=== PATIENT | female | born 1955 | race Caucasian/White ===

== ENCOUNTER → 2020-06-26 01:02 | Outpatient (CLI) | payer MEDICARE, SELFPAY ==
[2020-06-26 19:13] LABS: SARS-CoV-2 RNA PCR Negative
== END ==
PROVIDERS: PCP Family Medicine; Visit Provider Internal Medicine Gastroenterology
DX: Z01.812 Encounter for preprocedural laboratory examination (principal); Z20.822 Contact with and (suspected) exposure to COVID-19
CPT/HCPCS: C9803; U0003; U0005

== ENCOUNTER 2020-06-30 02:33 | Day surgery (SDC) | payer MEDICARE, SELFPAY ==
[2020-06-15 14:21] VITALS: BMI 37.9
[2020-06-30 06:21] VITALS: BP 158/88; PULSE 80; RESP 17; TEMP 36.3; O2SAT 100; BMI 36.2
[2020-06-30] MEDS: LACTATED RINGERS 1,000 ML 150 ML IV CONT (06:33)
--- NOTE | 2020-06-30 07:09 | WPDANESEPPF ---
Anes - Initial Pre Proc Eval Procedure: Operation Date: 06/30/20 07:30 Proposed Procedures p Colonoscopy - Sterling Haywood MD Date/Time: 06/30/20 07:09 Surgeon: Sterling Haywood MD Pre Op Diagnosis: Positive Cologuard Patient Data Age: 65 Gender: F Height: 5 ft 1 in Weight: 87 kg Last Vital Signs Temp 97.3 F L 06/30/20 06:21 Pulse 80 06/30/20 06:21 Resp 17 06/30/20 06:21 BP 158/88 H 06/30/20 06:21 Pulse Ox 100 06/30/20 06:21 Allergies Allergy/AdvReac Type Severity Reaction Status Date / Time hydrocodone Allergy Unknown Unknown Verified 06/30/20 06:20 Home Medications Medication Instructions Recorded Confirmed Type atorvastatin 10 mg tablet 10 mg PO DAILY #90 tablet 10/01/19 06/30/20 Rx lisinopril 20 mg tablet 20 mg PO DAILY #90 tablet 11/03/19 06/30/20 Rx levothyroxine 88 mcg tablet 88 mcg PO DAILY #90 tablet 02/04/20 06/30/20 Rx omeprazole 20 mg capsule,delayed 20 mg PO DAILY #90 cap 02/19/20 06/30/20 Rx release triamcinolone acetonide 0.1 % 1 applic TOPICAL QID #80 g 06/17/20 06/30/20 Rx topical cream metformin 500 mg tablet,extended 500 mg PO QPM #90 tablet 06/25/20 06/30/20 Rx release 24 hr naproxen 500 mg tablet 500 mg PO BID #180 tablet 06/25/20 06/30/20 Rx Patient hx anesthesia problems: none Family hx anesthesia problems: none PMFSH Past Medical History Medical History (Updated 06/30/20 @ 07:09 by Reinier Brady MD) Dementia Essential (primary) hypertension Hyperlipidemia Hypothyroidism (acquired) Family History Family History Father Hypertension Family history of malignant neoplasm of urinary bladder Mother Hypertension, Onset Age: 50 Family history of cardiovascular disease, Onset Age: 50 Sibling Hypertension Family history of elevated blood lipids Family history of cardiovascular disease Malignant neoplasm of prostate Social History Social History Smoking status: Never smoker Smoking end date: 04/09/71 Alcohol intake: never Substance use: never Substance use type: does not use Living arrangements: with family Spiritual care concerns: No Anes - Eval Final PreProcedure Day of Procedure 06/30/20 07:09 Patient weight: obese Heart: regular rate and rhythm Lungs: clear to auscultation Airway: Mallampati scale class III Neurological: alert and oriented Last oral intake: >/= 8 hours ASA classification: III Emergent: no Anesthetic plan: proceed Anesthesia type and monitoring: general and standard monitoring Informed Consent: The patient's anesthetic plan and its attendant risks and benefits were discussed with the patient/family/POA. Questions were solicited and answers provided to the satisfaction of the patient/family/POA.
[2020-06-30 07:19] LABS: Glucose Point of Care 115 (65-105)
--- NOTE | 2020-06-30 07:21 | PM.HPGS ---
History of Present Illness History of Present Illness Consent: Risks, benefits, and alternatives have been discussed and questions answered. Patient agrees to proceed with procedure. Chief complaint: Positive Cologuard Narrative: Letty Irene is a 65 year old female Referred for colon cancer screening. She has seen blood in her stools intermittently for the last couple of years Review of Systems Review of Systems: All systems reviewed & are unremarkable except as noted in HPI and below PMFSH Past Medical History Medical History Dementia Essential (primary) hypertension Hyperlipidemia Hypothyroidism (acquired) Family History Family History Father Hypertension Family history of malignant neoplasm of urinary bladder Mother Hypertension, Onset Age: 50 Family history of cardiovascular disease, Onset Age: 50 Sibling Hypertension Family history of elevated blood lipids Family history of cardiovascular disease Malignant neoplasm of prostate Social History Social History Smoking status: Never smoker Smoking end date: 04/09/71 Alcohol intake: never Substance use: never Substance use type: does not use Living arrangements: with family Spiritual care concerns: No Meds Home Medications and Allergies Home Medications Medication Instructions Recorded Confirmed Type atorvastatin 10 mg tablet 10 mg PO DAILY #90 tablet 10/01/19 06/30/20 Rx lisinopril 20 mg tablet 20 mg PO DAILY #90 tablet 11/03/19 06/30/20 Rx levothyroxine 88 mcg tablet 88 mcg PO DAILY #90 tablet 02/04/20 06/30/20 Rx omeprazole 20 mg capsule,delayed 20 mg PO DAILY #90 cap 02/19/20 06/30/20 Rx release triamcinolone acetonide 0.1 % 1 applic TOPICAL QID #80 g 06/17/20 06/30/20 Rx topical cream metformin 500 mg tablet,extended 500 mg PO QPM #90 tablet 06/25/20 06/30/20 Rx release 24 hr naproxen 500 mg tablet 500 mg PO BID #180 tablet 06/25/20 06/30/20 Rx Allergies Allergy/AdvReac Type Severity Reaction Status Date / Time hydrocodone Allergy Unknown Unknown Verified 06/30/20 06:20 Vital Signs Vital Signs - 24 hr 06/30/20 06:21 Temperature 36.3 C L Pulse Rate 80 Respiratory Rate 17 Blood Pressure 158/88 H Pulse Oximetry 100 Exam Resp: Auscultation: clear to auscultation bilaterally Cardio: Rate: regular rate Rhythm: regular rhythm GI: GI Palp: Yes Soft to palpation and No Tenderness to palpation present (GI) Assessment and Plan Assessment and plan (1) Colon cancer screening: Code(s): Z12.11 - Encounter for screening for malignant neoplasm of colon Status: Acute Assessment and Plan: Colonoscopy with possible biopsy or polypectomy or cautery or injection of substances.
[2020-06-30 07:53] VITALS: BP 125/50; PULSE 77; RESP 23; O2SAT 97
[2020-06-30 08:03] VITALS: BP 139/82; PULSE 76; RESP 23; O2SAT 97
[2020-06-30 08:13] VITALS: BP 161/68; PULSE 68; RESP 21; O2SAT 96
== END 2020-06-30 08:25 | disposition home or self-care (01) ==
PROVIDERS: PCP Family Medicine; Visit Provider Internal Medicine Gastroenterology
PROC: 0DJD8ZZ Inspection of Lower Intestinal Tract, Via Natural or Artificial Opening Endoscopic (ICD-10-PCS; CPT 45378; principal; 2020-06-30 07:30)
DX: Z12.11 Encounter for screening for malignant neoplasm of colon (principal); C18.7 Malignant neoplasm of sigmoid colon; K57.30 Diverticulosis of large intestine without perforation or abscess without bleeding; R19.5 Other fecal abnormalities; I10 Essential (primary) hypertension; E03.9 Hypothyroidism, unspecified; F03.90 Unspecified dementia, unspecified severity, without behavioral disturbance, psychotic disturbance, mood disturbance, and anxiety; Z79.84 Long term (current) use of oral hypoglycemic drugs; E66.9 Obesity, unspecified; Z68.36 Body mass index [BMI] 36.0-36.9, adult
CPT/HCPCS: 45385; 82948; 88305; C9803; J2704; J7120; U0003; U0005

== ENCOUNTER → 2020-07-06 00:17 | Outpatient (CLI) | payer MEDICARE, SELFPAY ==
[2020-07-06 18:31] LABS: SARS-CoV-2 RNA PCR Negative
== END ==
PROVIDERS: PCP Family Medicine; Visit Provider Internal Medicine Gastroenterology
DX: Z01.812 Encounter for preprocedural laboratory examination (principal); Z20.822 Contact with and (suspected) exposure to COVID-19
CPT/HCPCS: C9803; U0003; U0005

== ENCOUNTER 2020-07-08 02:10 | Day surgery (SDC) | payer MEDICARE, SELFPAY ==
[2020-07-05 14:11] VITALS: BMI 36.2
--- NOTE | 2020-07-08 10:07 | WPDANESEPPF ---
Anes - Initial Pre Proc Eval Procedure: Operation Date: 07/08/20 11:30 Proposed Procedures p Flexible Sigmoidoscopy - Sterling Haywood MD Date/Time: 07/08/20 10:07 Surgeon: Sterling Haywood MD Pre Op Diagnosis: Colon CA Patient Data Age: 65 Gender: F Height: 1.55 m Weight: 87 kg Allergies Allergy/AdvReac Type Severity Reaction Status Date / Time hydrocodone Allergy Unknown Unknown Verified 07/05/20 14:23 Home Medications Medication Instructions Recorded Confirmed Type atorvastatin 10 mg tablet 10 mg PO DAILY #90 tablet 10/01/19 07/05/20 Rx lisinopril 20 mg tablet 20 mg PO DAILY #90 tablet 11/03/19 07/05/20 Rx levothyroxine 88 mcg tablet 88 mcg PO DAILY #90 tablet 02/04/20 07/05/20 Rx metformin 500 mg tablet,extended 500 mg PO QPM #90 tablet 06/25/20 07/05/20 Rx release 24 hr naproxen 500 mg tablet 500 mg PO BID #180 tablet 06/25/20 07/05/20 Rx triamcinolone acetonide 0.1 % 1 applic TOPICAL QID #453.6 g 06/30/20 07/05/20 Rx topical cream omeprazole 20 mg PO HS 07/05/20 07/05/20 History Patient hx anesthesia problems: none Family hx anesthesia problems: none PMFSH Past Medical History Medical History (Updated 07/08/20 @ 10:09 by Dennys Cartwright MD) Dementia Diabetes Essential (primary) hypertension Hyperlipidemia Hypothyroidism (acquired) Obesity (BMI 30.0-34.9) Sigmoid polyp Family History Family History Father Hypertension Family history of malignant neoplasm of urinary bladder Mother Hypertension, Onset Age: 50 Family history of cardiovascular disease, Onset Age: 50 Sibling Hypertension Family history of elevated blood lipids Family history of cardiovascular disease Malignant neoplasm of prostate Social History Social History Smoking status: Never smoker Smoking end date: 04/09/71 Alcohol intake: never Substance use: never Substance use type: does not use Living arrangements: with family Spiritual care concerns: No Anes - Eval Final PreProcedure Day of Procedure 07/08/20 10:07 Patient weight: obese Heart: regular rate and rhythm Lungs: clear to auscultation and normal air movement Airway: Mallampati scale class II Neurological: alert and oriented Last oral intake: >/= 8 hours ASA classification: III Emergent: no Anesthetic plan: proceed Anesthesia type and monitoring: general GIVS Informed Consent: The patient's anesthetic plan and its attendant risks and benefits were discussed with the patient/family/POA. Questions were solicited and answers provided to the satisfaction of the patient/family/POA.
[2020-07-08 10:12] VITALS: BP 145/77; PULSE 90; RESP 20; TEMP 36.3; O2SAT 100; BMI 35.3
[2020-07-08] MEDS: LACTATED RINGERS 1,000 ML 150 ML IV CONT (10:30)
[2020-07-08 10:31] LABS: Glucose Point of Care 103 (65-105)
--- NOTE | 2020-07-08 10:51 | PM.HPGS ---
History of Present Illness History of Present Illness Consent: Risks, benefits, and alternatives have been discussed and questions answered. Patient agrees to proceed with procedure. Chief complaint: Colon CA Narrative: Letty Irene is a 65 year old female who recently was found to have focal carcinoma and a polyp. She returns now for sigmoidoscopy and tattoo of the lesion to facilitate surgical localization Review of Systems Review of Systems: All systems reviewed & are unremarkable except as noted in HPI and below PMFSH Past Medical History Medical History Dementia Diabetes Essential (primary) hypertension Hyperlipidemia Hypothyroidism (acquired) Obesity (BMI 30.0-34.9) Sigmoid polyp Family History Family History Father Hypertension Family history of malignant neoplasm of urinary bladder Mother Hypertension, Onset Age: 50 Family history of cardiovascular disease, Onset Age: 50 Sibling Hypertension Family history of elevated blood lipids Family history of cardiovascular disease Malignant neoplasm of prostate Social History Social History Smoking status: Never smoker Smoking end date: 04/09/71 Alcohol intake: never Substance use: never Substance use type: does not use Living arrangements: with family Spiritual care concerns: No Meds Home Medications and Allergies Home Medications Medication Instructions Recorded Confirmed Type atorvastatin 10 mg tablet 10 mg PO DAILY #90 tablet 10/01/19 07/05/20 Rx lisinopril 20 mg tablet 20 mg PO DAILY #90 tablet 11/03/19 07/05/20 Rx levothyroxine 88 mcg tablet 88 mcg PO DAILY #90 tablet 02/04/20 07/05/20 Rx metformin 500 mg tablet,extended 500 mg PO QPM #90 tablet 06/25/20 07/05/20 Rx release 24 hr naproxen 500 mg tablet 500 mg PO BID #180 tablet 06/25/20 07/05/20 Rx triamcinolone acetonide 0.1 % 1 applic TOPICAL QID #453.6 g 06/30/20 07/05/20 Rx topical cream omeprazole 20 mg PO HS 07/05/20 07/05/20 History Allergies Allergy/AdvReac Type Severity Reaction Status Date / Time hydrocodone Allergy Unknown Unknown Verified 07/08/20 10:11 Vital Signs Vital Signs - 24 hr 07/08/20 10:12 Temperature 36.3 C L Pulse Rate 90 Respiratory Rate 20 Blood Pressure 145/77 H Pulse Oximetry 100 Exam Const: General: alert Orientation/consciousness: patient oriented x3 Resp: Auscultation: clear to auscultation bilaterally Cardio: Rhythm: regular rhythm GI: GI Palp: Yes Soft to palpation and No Tenderness to palpation present (GI) Neuro: General: patient oriented x3 Assessment and Plan Assessment and plan (1) Carcinoma of colon: Code(s): C18.9 - Malignant neoplasm of colon, unspecified Status: Acute Assessment and Plan: Sigmoidoscopy with possible biopsy or polypectomy or cautery or injection of substances.
[2020-07-08 11:28] VITALS: BP 132/74; PULSE 79; RESP 25; O2SAT 96
[2020-07-08 11:38] VITALS: BP 111/63; PULSE 76; RESP 18; O2SAT 95
[2020-07-08 11:48] VITALS: BP 128/77; PULSE 71; RESP 19; O2SAT 97
== END 2020-07-08 11:57 | disposition home or self-care (01) ==
PROVIDERS: PCP Family Medicine; Visit Provider Internal Medicine Gastroenterology
PROC: 0DJD8ZZ Inspection of Lower Intestinal Tract, Via Natural or Artificial Opening Endoscopic (ICD-10-PCS; CPT 45330; principal; 2020-07-08 11:30)
DX: C18.9 Malignant neoplasm of colon, unspecified (principal); D12.5 Benign neoplasm of sigmoid colon; I10 Essential (primary) hypertension; E78.5 Hyperlipidemia, unspecified; E11.9 Type 2 diabetes mellitus without complications; E03.9 Hypothyroidism, unspecified; F03.90 Unspecified dementia, unspecified severity, without behavioral disturbance, psychotic disturbance, mood disturbance, and anxiety; E66.9 Obesity, unspecified; Z68.35 Body mass index [BMI] 35.0-35.9, adult; Z79.84 Long term (current) use of oral hypoglycemic drugs
CPT/HCPCS: 45335; 45338; 88305; C9803; J2704; J7120; U0003; U0005

== ENCOUNTER → 2020-08-09 01:22 | Outpatient (CLI) | payer MEDICARE, SELFPAY ==
[2020-08-09 19:16] LABS: SARS-CoV-2 RNA PCR Negative
== END ==
PROVIDERS: PCP Family Medicine; Visit Provider Internal Medicine Gastroenterology
DX: Z01.812 Encounter for preprocedural laboratory examination (principal); Z20.822 Contact with and (suspected) exposure to COVID-19
CPT/HCPCS: C9803; U0003; U0005

== ENCOUNTER 2020-08-12 01:47 | Day surgery (SDC) | payer MEDICARE, SELFPAY ==
[2020-08-04 15:43] VITALS: BMI 37.5
--- NOTE | 2020-08-11 11:35 | WPDANESEPPF ---
Anes - Initial Pre Proc Eval Procedure: Operation Date: 08/12/20 12:00 Proposed Procedures p Colonoscopy - Sterling Haywood MD Date/Time: 08/11/20 11:35 Surgeon: Sterling Haywood MD Pre Op Diagnosis: colon polyp Patient Data Age: 65 Gender: F Height: 1.55 m Weight: 90 kg Allergies Allergy/AdvReac Type Severity Reaction Status Date / Time hydrocodone Allergy Unknown Unknown Verified 08/12/20 10:59 Home Medications Medication Instructions Recorded Confirmed Type atorvastatin 10 mg tablet 10 mg PO DAILY #90 tablet 10/01/19 08/04/20 Rx lisinopril 20 mg tablet 20 mg PO DAILY #90 tablet 11/03/19 08/04/20 Rx levothyroxine 88 mcg tablet 88 mcg PO DAILY #90 tablet 02/04/20 08/04/20 Rx metformin 500 mg tablet,extended 500 mg PO QPM #90 tablet 06/25/20 08/04/20 Rx release 24 hr naproxen 500 mg tablet 500 mg PO BID #180 tablet 06/25/20 08/04/20 Rx triamcinolone acetonide 0.1 % 1 applic TOPICAL QID #453.6 g 06/30/20 08/04/20 Rx topical cream omeprazole 20 mg PO HS 07/05/20 08/04/20 History erythromycin 500 mg tablet 1,000 mg PO .COMPLEX #6 tablet 07/29/20 08/04/20 Rx neomycin 500 mg tablet See Rx Instructions .ROUTE 07/29/20 08/04/20 Rx .COMPLEX #6 tablet tramadol 50 mg tablet 50 mg PO Q6H PRN #40 tablet 07/30/20 08/04/20 Rx sodium,potassium,mag sulfates 17.5 See Rx Instructions PO .COMPLEX 08/04/20 08/04/20 Rx gram-3.13 gram-1.6 gram oral soln #354 ml Patient hx anesthesia problems: none Family hx anesthesia problems: none PMFSH Past Medical History Medical History (Updated 07/29/20 @ 09:49 by Marta Bedoya) Dementia Diabetes Essential (primary) hypertension GERD (gastroesophageal reflux disease) Hyperlipidemia Hypothyroidism (acquired) Sigmoid polyp Surgical History Surgical History (Updated 08/11/20 @ 11:36 by Corona Fragoso DO) H/O rotator cuff surgery H/O tubal ligation History of appendectomy History of cholecystectomy Previous back surgery Family History Family History Father Hypertension Family history of malignant neoplasm of urinary bladder Mother Hypertension, Onset Age: 50 Heart attack Sibling Hypertension Family history of elevated blood lipids Family history of cardiovascular disease Malignant neoplasm of prostate Grandparent Heart disease Cancer Hypertension Social History Social History Smoking status: Never smoker Smoking end date: 04/09/71 Alcohol intake: never Substance use: never Substance use type: does not use Living arrangements: with family Gender identity (if verbalized by the patient): Female Spiritual care concerns: No Anes - Eval Final PreProcedure Day of Procedure 08/11/20 11:35 Patient weight: obese Heart: regular rate and rhythm Lungs: clear to auscultation and normal air movement Airway: Mallampati scale class II Neurological: alert and oriented Last oral intake: >/= 8 hours ASA classification: III Emergent: no Anesthetic plan: proceed Anesthesia type and monitoring: general GIVS and standard monitoring Informed Consent: The patient's anesthetic plan and its attendant risks and benefits were discussed with the patient/family/POA. Questions were solicited and answers provided to the satisfaction of the patient/family/POA.
[2020-08-12 11:01] VITALS: BP 147/77; PULSE 80; RESP 20; TEMP 36.4; O2SAT 100
[2020-08-12] MEDS: LACTATED RINGERS 1,000 ML 150 ML IV CONT (11:12)
[2020-08-12 11:13] LABS: Glucose Point of Care 95 (65-105)
--- NOTE | 2020-08-12 11:46 | PM.HPGS ---
History of Present Illness History of Present Illness Consent: Risks, benefits, and alternatives have been discussed and questions answered. Patient agrees to proceed with procedure. Chief complaint: colon polyp Narrative: Letty Irene is a 65 year old female Who recently was found to have a malignant polyp. When she had tattooing of the spot for subsequent surgery, an additional polyp was seen which was biopsied and found to be benign. it was a broad-based polyp and it was felt that it would be somewhat difficult to remove endoscopically. It was hoped that this 2nd more distal polyp would be removed with the surgical resection. However when discussed with the surgeon. It seems that the hand assisted laparoscopic procedure would not facilitate removing a polyp that close to the rectum. Therefore we will attempt removed that 1 endoscopically today . Review of Systems Review of Systems: All systems reviewed & are unremarkable except as noted in HPI and below PMFSH Past Medical History Medical History Dementia Diabetes Essential (primary) hypertension GERD (gastroesophageal reflux disease) Hyperlipidemia Hypothyroidism (acquired) Sigmoid polyp Surgical History Surgical History H/O rotator cuff surgery H/O tubal ligation History of appendectomy History of cholecystectomy Previous back surgery Family History Family History Father Hypertension Family history of malignant neoplasm of urinary bladder Mother Hypertension, Onset Age: 50 Heart attack Sibling Hypertension Family history of elevated blood lipids Family history of cardiovascular disease Malignant neoplasm of prostate Grandparent Heart disease Cancer Hypertension Social History Social History Smoking status: Never smoker Smoking end date: 04/09/71 Alcohol intake: never Substance use: never Substance use type: does not use Living arrangements: with family Gender identity (if verbalized by the patient): Female Spiritual care concerns: No Meds Home Medications and Allergies Home Medications Medication Instructions Recorded Confirmed Type atorvastatin 10 mg tablet 10 mg PO DAILY #90 tablet 10/01/19 08/04/20 Rx lisinopril 20 mg tablet 20 mg PO DAILY #90 tablet 11/03/19 08/04/20 Rx levothyroxine 88 mcg tablet 88 mcg PO DAILY #90 tablet 02/04/20 08/04/20 Rx metformin 500 mg tablet,extended 500 mg PO QPM #90 tablet 06/25/20 08/04/20 Rx release 24 hr naproxen 500 mg tablet 500 mg PO BID #180 tablet 06/25/20 08/04/20 Rx triamcinolone acetonide 0.1 % 1 applic TOPICAL QID #453.6 g 06/30/20 08/04/20 Rx topical cream omeprazole 20 mg PO HS 07/05/20 08/04/20 History erythromycin 500 mg tablet 1,000 mg PO .COMPLEX #6 tablet 07/29/20 08/04/20 Rx neomycin 500 mg tablet See Rx Instructions .ROUTE 07/29/20 08/04/20 Rx .COMPLEX #6 tablet tramadol 50 mg tablet 50 mg PO Q6H PRN #40 tablet 07/30/20 08/04/20 Rx sodium,potassium,mag sulfates 17.5 See Rx Instructions PO .COMPLEX 08/04/20 08/04/20 Rx gram-3.13 gram-1.6 gram oral soln #354 ml Allergies Allergy/AdvReac Type Severity Reaction Status Date / Time hydrocodone Allergy Unknown Unknown Verified 08/12/20 10:59 Vital Signs Vital Signs - 24 hr 08/12/20 11:01 Temperature 36.4 C Pulse Rate 80 Respiratory Rate 20 Blood Pressure 147/77 H Pulse Oximetry 100 Exam Resp: Auscultation: clear to auscultation bilaterally Cardio: Rate: regular rate Rhythm: regular rhythm GI: GI Palp: Yes Soft to palpation and No Tenderness to palpation present (GI) Assessment and Plan Assessment and plan (1) Malignant neoplasm of sigmoid colon: Code(s): C18.7 - Malignant neoplasm of sigmoid colon Status: Acute Assessment an
[2020-08-12 12:18] VITALS: BP 91/50; PULSE 73; RESP 18; O2SAT 100
[2020-08-12 12:28] VITALS: BP 108/61; PULSE 73; RESP 20; O2SAT 97
[2020-08-12 12:38] VITALS: BP 127/65; PULSE 69; RESP 15; O2SAT 100
== END 2020-08-12 12:58 | disposition home or self-care (01) ==
PROVIDERS: PCP Family Medicine; Visit Provider Internal Medicine Gastroenterology
PROC: 0DJD8ZZ Inspection of Lower Intestinal Tract, Via Natural or Artificial Opening Endoscopic (ICD-10-PCS; CPT 45378; principal; 2020-08-12 12:00)
DX: C18.7 Malignant neoplasm of sigmoid colon (principal); D12.5 Benign neoplasm of sigmoid colon; F03.90 Unspecified dementia, unspecified severity, without behavioral disturbance, psychotic disturbance, mood disturbance, and anxiety; E11.9 Type 2 diabetes mellitus without complications; I10 Essential (primary) hypertension; K21.9 Gastro-esophageal reflux disease without esophagitis; E78.5 Hyperlipidemia, unspecified; E03.9 Hypothyroidism, unspecified; Z79.84 Long term (current) use of oral hypoglycemic drugs; K57.30 Diverticulosis of large intestine without perforation or abscess without bleeding; K64.8 Other hemorrhoids
CPT/HCPCS: 45388; 82948; 88305; C9803; J2704; J7120; U0003; U0005

== ENCOUNTER 2020-09-01 13:37 | Outpatient (CLI) | payer MEDICARE, SELFPAY ==
--- NOTE | ~2020-09-01 | XR_ITS ---
EXAMINATION: XR chest 2V 09/01/2020 14:56 INDICATION: Hypertension PROCEDURE: 2 view chest COMPARISON: No prior studies for comparison. FINDINGS: The lungs are clear. The cardiomediastinal silhouette is within normal limits. There are no pleural effusions. There is no pneumothorax suspected. IMPRESSION: 1: NO ACUTE CARDIOPULMONARY DISEASE. Reviewed, dictated and finalized at location A.
--- NOTE | 2020-09-01 14:29 | ECG_ITS ---
Measurements Intervals Mood[place] Rate: 82 P: 40 NJ: 176 QRS: -33 QRSD: 86 T: 59 QT: 364 QTc: 425 Interpretive Statements SINUS RHYTHM LEFT AXIS DEVIATION LOW QRS VOLTAGE IN PRECORDIAL LEADS VOLTAGE CRITERIA FOR LVH POOR R WAVE PROGRESSION, ANTERIOR LEADS BASELINE ARTIFACT- I, II, III, AVR BORDERLINE ECG Electronically Signed On 09-01-2020 14:44:56 CDT by Truong Vasques D.O.
[2020-09-01 15:00] LABS: Anion Gap 7 mmol/L (8-16); Blood Urea Nitrogen 11 mg/dL (7-17); Calcium 9.3 mg/dL (8.4-10.2); Carbon Dioxide 28 mmol/L (22-30); Chloride 106 mmol/L (98-107); Estimated Glomerular Filt Rate > 60; Glucose 104 mg/dL (65-105); Hematocrit 42.2 % (37.0-47.0); Hemoglobin 13.9 g/dL (12.0-15.0); Mean Corpuscular HGB Conc 32.9 g/dl (32-36); Mean Corpuscular Volume 90.9 fl (80-100); Mean Platelet Volume 10.3 fl (7.4-10.4); Platelet Count Result 254 k/mm3 (150-375); Red Blood Count 4.64 M/mm3 (4.2-5.4); Red Cell Distribution Width 13.1 % (11.5-14.5); Sodium 141 mmol/L (137-145); White Blood Count 10.5 K/mm3 (4.5-10.0)
[2020-09-01 15:31] LABS: Carcinoembryonic Antigen 4.5 ng/mL (0.0-3.0)
== END 2020-09-01 13:38 | disposition home or self-care (01) ==
LOC: ANHSURGERY 13:41
PROVIDERS: PCP Family Medicine; Visit Provider Surgery
DX: Z01.818 Encounter for other preprocedural examination (principal); C18.7 Malignant neoplasm of sigmoid colon
CPT/HCPCS: 36415; 71046; 80048; 82378; 85027; 86850; 86900; 86901; 93005

== ENCOUNTER → 2020-09-06 02:04 | Outpatient (CLI) | payer MEDICARE, SELFPAY ==
[2020-09-06 17:04] LABS: SARS-CoV-2 RNA PCR Negative
== END ==
PROVIDERS: PCP Family Medicine; Visit Provider Surgery
DX: Z01.812 Encounter for preprocedural laboratory examination (principal); Z20.822 Contact with and (suspected) exposure to COVID-19
CPT/HCPCS: C9803; U0003; U0005

== ENCOUNTER 2020-09-09 17:16 | Inpatient (IN) | payer MEDICARE, SELFPAY ==
[2020-09-01 14:06] VITALS: BP 160/78; PULSE 90; RESP 20; TEMP 36.6; O2SAT 97; BMI 36.8
--- NOTE | 2020-09-08 17:05 | PM.IMHP ---
H&P: HPI History of Present Illness Date/Time: 09/08/20 17:05 Chief Complaint: SIGMOID COLON CANCER Narrative: Patient is a 65-year-old woman who had a positive cologuard test earlier this year. She had also been noting blood in her stools off and on for at least a year. She underwent full colonoscopy by Dr. Haywood on 06/30/2020. A pedunculated polyp in the sigmoid colon at about 22 cm was noted and was completely excised. Pathology on this however did show invasive adenocarcinoma arising in a tubulovillous adenoma with high-grade dysplasia. The adenocarcinoma was felt to likely be invading the muscularis propria as well. The specimen was fragmented and no further staging information could be delineated. The patient went back for a flexible sigmoidoscopy to tattoo the previously removed polyp on July 08, 2020. This was tattooed but a polyp more distal in the sigmoid or upper rectum was also found. Biopsies of this showed tubular adenoma. There was no dysplasia or suggestion of malignancy. Both polyps were tattooed at that time. The polyp found at that time was felt to be at 12 cm by flexible sigmoidoscopy. I saw the patient in the office in July as well. After discussion with Dr. Haywood, it was felt to be beneficial to the patient to have attempts at removal of the benign more distal polyp prior to the sigmoidectomy for the malignant polyp. The benign polyp was felt to likely be in the rectum and would require low anterior resection rather than laparoscopic sigmoidectomy. The patient went for colonoscopy again on 08/12/2020. Dr. Haywood was able to excise this polyp nearly completely and ablated any remnants of the polyp. Patient is now taken to surgery for hand access laparoscopic sigmoidectomy for sigmoid colon cancer. Review of Systems Review of Systems: All systems reviewed & are unremarkable except as noted in HPI and below ( HPI and those items noted below) Constitutional: Constitutional: Denies anorexia, Denies chills, Denies fatigue, Denies fever(s), Denies headache(s) and Denies poor appetite Cardiovascular: Cardiovascular: Denies chest pain, Denies diaphoresis, Denies dyspnea and Denies paroxysmal nocturnal dyspnea Respiratory: Respiratory: Denies chest congestion, Denies cough and Denies dyspnea Integumentary/Breasts: Skin/Breast: Denies lesions and Denies rash PMFSH Past Medical History Medical History Dementia Diabetes Essential (primary) hypertension GERD (gastroesophageal reflux disease) Hyperlipidemia Hypothyroidism (acquired) Pre-op exam Sigmoid polyp Surgical History Surgical History H/O rotator cuff surgery H/O tubal ligation History of appendectomy History of cholecystectomy Previous back surgery Family History Family History Father Hypertension Family history of malignant neoplasm of urinary bladder Mother Hypertension, Onset Age: 50 Heart attack Sibling Hypertension Family history of elevated blood lipids Family history of cardiovascular disease Malignant neoplasm of prostate Grandparent Heart disease Cancer Hypertension Social History Social History Smoking status: Former smoker Second hand tobacco smoke exposure: No Smoking end date: 04/09/71 Additional smoking assessment comments: STATES 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
[2020-09-09] VITALS (11 sets, daily range): BP systolic 124–170; BP diastolic 54–75; PULSE 88–105; RESP 14–20; TEMP 35.9–37.2; O2SAT 92–100
--- NOTE | ~2020-09-09 | XR_ITS ---
EXAMINATION: XR chest 2V DATE: 09/15/2020 07:55 INDICATION: Leukocytosis. TECHNIQUE: Frontal and lateral views of the chest were obtained. COMPARISON: Chest 2 views 09/01/2020, CT abdomen and pelvis 09/15/2020 FINDINGS: There is mild elevation of right hemidiaphragm. There are small pleural effusions. There is mild atelectasis at right lung base. No pneumothorax or the heart size is normal. Surgical clips in the right upper quadrant are likely from cholecystectomy. IMPRESSION: 1. Small pleural effusions. Reviewed, dictated and finalized at location A. IMPRESSION: 1. Small pleural effusions.
--- NOTE | ~2020-09-09 | CT_ITS ---
EXAMINATION: CT abdomen pelvis wo con EXAM DATE: 09/15/2020 07:48 INDICATION: Leukocytosis 6d s/p colon resection. TECHNIQUE: Spiral CT of the abdomen and pelvis was performed without contrast. Axial, coronal and s agittal images of the abdomen and pelvis were reviewed. The dose-length product (DLP) for this exami nation was 1143.23 mGy-cm. The exposure was tailored according to patient size (auto mA exposure con trol), and iterative reconstruction (ASIR) was used as additional dose reduction technique. There is no prior study for comparison. FINDINGS: There is partial colectomy, rectosigmoid anastomosis which appears intact. No free intraper itoneal gas. There is mild left hydroureteronephrosis to the pelvic inlet, where the ureter appears t o deviate posteriorly. Cannot identify its midportion or confirm continuity. The distal aspect of thi s ureter collapsed. There is small amount of fluid along the posterior aspect of the retroperitoneum. Mild inflammation surrounding the left kidney and ureter proximally. No nephrolithiasis. The liver, spleen, adrenal glands and pancreas are unremarkable. There are cholecystectomy clips. T he uterus is unremarkable. Gas within the bladder probably from recent instrumentation. There is n o retroperitoneal or pelvic lymphadenopathy. There is mild scattered arteriosclerotic disease. Probable identification of a normal appendix. No pericecal inflammation. There is small sliding gas troesophageal hiatal hernia. There is expected amount of colonic stool. Multi segmental bibasilar a telectasis. There are no osteoblastic or osteolytic lesions identified. Lumbar fusion hardware L4-S1 . IMPRESSION: 1. Possible left ureteral discontinuity/injury. Mild left hydronephrosis, perinephric and periureter al fat stranding proximally, with posteriorly deviated mid ureteral course and some left posterior re troperitoneal fluid. Recommend CT urogram or retrograde pyelogram. 2. Left perinephric, periureteral inflammation, can't exclude superimposed infection. 3. Multisegmental bibasilar atelectasis. Reviewed, dictated and finalized at location A. IMPRESSION: 1. Possible left ureteral discontinuity/injury. Mild left hydronephrosis, maximilian nephric and periureteral fat stranding proximally, with posteriorly deviated mi d ureteral course and some left posterior retroperitoneal fluid. Recommend C T urogram or retrograde pyelogram. 2. Left perinephric, periureteral inflammation, can't exclude superimposed inf ection. 3. Multisegmental bibasilar atelectasis.
--- NOTE | ~2020-09-09 | CT_ITS ---
EXAMINATION: CT guide nephro tube pl LT DATE: 09/16/2020 11:39 INDICATION: Left hydronephrosis. TECHNIQUE: The procedure including the risks, benefits, and alternatives was discussed with the patie nt. Risks discussed included bleeding and infection. The patient understood the risks and benefits an d agreed to proceed. 1 g Ancef IV was given. The skin overlying the left kidney was prepped and drap ed in usual sterile fashion. Anesthetic was administered with 1% lidocaine subcutaneously. An 18 gau [email or web address] needle was inserted into a calyx of the kidney under CT guidance. The needle was exchanged over a wire for 6 Ecuadorean and 8 Ecuadorean dilators and then for an 8.5 Ecuadorean pigtail catheter under CT guidance. The catheter was stitched to the skin. A dressing was applied. The mA was adjusted accordin g to patient size. Iterative reconstruction technique was employed. The dose-length product was 414.5 8 mGy-cm. There were no immediate complications. FINDINGS: CT images demonstrate the nephrostomy tube in the renal pelvis. IMPRESSION: 1. Successful CT-guided left nephrostomy tube placement]. Reviewed, dictated and finalized at location A.
--- NOTE | ~2020-09-09 | XR_ITS ---
EXAMINATION: XR retrograde pyelogram LT DATE: 09/15/2020 16:43 INDICATION: Left hydronephrosis with possible ureteral injury. TECHNIQUE: 7 fluoroscopic images of the abdomen and pelvis were obtained during procedure performed demarco Garcia. Radiologist was not present for the imaging or procedure. The amount of fluoroscopy time used during this procedure was 0.7 minutes. COMPARISON: CT dated 09/25/2020 FINDINGS: Retrograde injection into the distal left ureter which demonstrates extraluminal extravasation which projects over the region of the left sacral iliac joint. No contrast is seen extending into the more proximal left ureter which would be consistent with a ureteral injury, potentially transection. Combi jesse anterior and posterior spinal fusion at L4-S1 with interbody bone graft cages and bilateral verti genesis esme and pedicle screw fixation. IMPRESSION: 1. Extraluminal extravasation of contrast along the distal left ureter with no opacification of the m ore proximal ureter which along with CT findings would be consistent with left ureteral injury. See p rocedure note for further detail. Reviewed, dictated and finalized at location A. IMPRESSION: 1. Extraluminal extravasation of contrast along the distal left ureter with no opacification of the more proximal ureter which along with CT findings would be consistent with left ureteral injury. See procedure note for further detail.
--- NOTE | 2020-09-09 08:25 | WPDHPUPDATE1 ---
History and Physical Update Update Date/Time: 09/09/20 08:25 History and Physical has been reviewed, including an updated exam of the patient. There are NO changes in the patient's condition. Risks, benefits, and alternatives have been discussed and questions answered. Patient agrees to proceed with procedure.
--- NOTE | 2020-09-09 09:28 | WPDANESEPPF ---
Anes - Initial Pre Proc Eval Procedure: Operation Date: 09/09/20 10:30 Proposed Procedures p Hand Assisted Laparoscopic Sigmoid Colon Resection - Everette Dixon MD Date/Time: 09/09/20 09:28 Surgeon: Everette Dixon MD Pre Op Diagnosis: sigmoid colon CA Patient Data Age: 65 Gender: F Height: 5 ft Weight: 85.6 kg Last Vital Signs Temp 36.6 C 09/01/20 14:06 Pulse 90 09/01/20 14:06 Resp 20 09/01/20 14:06 BP 160/78 H 09/01/20 14:06 Pulse Ox 97 09/01/20 14:06 Allergies Allergy/AdvReac Type Severity Reaction Status Date / Time hydrocodone AdvReac Mild YEARS Verified 09/09/20 09:20 AGO, MADE ME NAUSEATED Home Medications Medication Instructions Recorded Confirmed Type levothyroxine 88 mcg tablet 88 mcg PO DAILY #90 tablet 02/04/20 09/09/20 Rx metformin 500 mg tablet,extended 500 mg PO QPM #90 tablet 06/25/20 09/09/20 Rx release 24 hr naproxen 500 mg tablet 500 mg PO BID #180 tablet 06/25/20 09/01/20 Rx omeprazole 20 mg PO HS 07/05/20 09/09/20 History erythromycin 500 mg tablet 1,000 mg PO .COMPLEX #6 tablet 07/29/20 09/09/20 Rx neomycin 500 mg tablet See Rx Instructions .ROUTE 07/29/20 09/09/20 Rx .COMPLEX #6 tablet tramadol 50 mg tablet 50 mg PO Q6H PRN #40 tablet 07/30/20 09/09/20 Rx atorvastatin 10 mg HS 09/01/20 09/09/20 History lisinopril 20 mg PO DAILY 09/09/20 09/09/20 History Patient hx anesthesia problems: other (slow to awaken) Family hx anesthesia problems: none PMFSH Past Medical History Medical History Dementia Diabetes Essential (primary) hypertension GERD (gastroesophageal reflux disease) Hyperlipidemia Hypothyroidism (acquired) Pre-op exam Sigmoid polyp Surgical History Surgical History H/O rotator cuff surgery H/O tubal ligation History of appendectomy History of cholecystectomy Previous back surgery Family History Family History Father Hypertension Family history of malignant neoplasm of urinary bladder Mother Hypertension, Onset Age: 50 Heart attack Sibling Hypertension Family history of elevated blood lipids Family history of cardiovascular disease Malignant neoplasm of prostate Grandparent Heart disease Cancer Hypertension Social History Social History Smoking status: Former smoker Second hand tobacco smoke exposure: No Smoking end date: 04/09/71 Additional smoking assessment comments: [place] SOCIAL SMOKER/6MONTHS-1YR/QUIT 1972 Alcohol intake: never Substance use: never Substance use type: does not use Living arrangements: with family Gender identity (if verbalized by the patient): Female Spiritual care concerns: No Anes - Eval Final PreProcedure Day of Procedure 09/09/20 09:28 Patient weight: obese Heart: regular rate and rhythm Lungs: decreased breath sounds Airway: Mallampati scale class II Neurological: other (alert) Last oral intake: >/= 8 hours ASA classification: III Emergent: no Anesthetic plan: proceed Anesthesia type and monitoring: general ETT and standard monitoring Informed Consent: The patient's anesthetic plan and its attendant risks and benefits were discussed with the patient/family/POA. Questions were solicited and answers provided to the satisfaction of the patient/family/POA.
[2020-09-09] MEDS: ALVIMOPAN 12 MG CAPSULE PO (09:29)
[2020-09-09] MEDS: ACETAMINOPHEN 500 MG TABLET 1000 MG PO (09:29)
[2020-09-09] MEDS: LACTATED RINGERS 1,000 ML 30 ML IV CONT ×2 (09:35→15:46)
[2020-09-09] MEDS: KETOROLAC 15 MG/ML VIAL (*BKC) IV PUSH (09:50)
[2020-09-09 09:57] LABS: Glucose Point of Care 103 mg/dl (65-105)
[2020-09-09] MEDS: ceFAZolin 2 GM/D5W 50 ML 2 GM/50 ML BAG IVPB (10:27)
--- NOTE | 2020-09-09 16:20 | PM.PROC ---
Procedure Note - Detailed Date of procedure: 09/09/20 Pre-op diagnosis: sigmoid colon CA Sigmoid colon cancer Post-op diagnosis: same Procedure performed: Hand access laparoscopic sigmoidectomy with stapled number 29 EEA anastomosis, mobilization splenic flexure Description of procedure: The patient was taken to surgery and induced into general anesthesia. She was then placed in lithotomy using Deion stirrups. Farley catheter was placed. Rectal irrigation and rectal tube were placed. The abdomen was prepped and draped. Incision for the hand access port was drawn in the midline at the level of the umbilicus and slightly below the umbilicus. Local anesthetic was infiltrated in the area of the anticipated incision. Incision was then made and dissection carried down to the midline fascia. A couple of fascial sutures were found and were removed. We then opened the midline fascia and gained access to the peritoneal cavity. The fascia and peritoneum was opened the length of the wound which was about 10 cm. The Gurjit wound guard was then placed. The GelPort was placed. With the hand in the abdomen, local was infiltrated in the left mid abdomen. Incision was made and a 10 11 trocar was placed there. Similarly, local was used to place the other 05/19/2010 trocars, 1 in the mid abdomen above the umbilicus and hand access port, 1 in the right mid abdomen. The other 2 trocars were placed under direct visualization after the camera was positioned in the left-sided trocar. Patient was placed in Trendelenburg with the left side elevated. Some adhesions to the cecum and small intestine were taken down so that the small bowel could be packed up more into the pelvis. We then started mobilizing the sigmoid colon and left colon. The tattoo was easily visible. There were numerous lateral peritoneal attachments of the sigmoid and left colon. The sigmoid was mobilized and the left ureter was found. We carefully avoided the ureter. Once I had mobilized down into the upper rectum, I then looked on the right side of the sigmoid colon. Similarly the lateral peritoneum to the sigmoid and upper rectum was divided on the right side of the sigmoid. I should point out that the LigaSure was used for the entire dissection. I then gained access to the recto rectus space at the sacral promontory. I dissected down into the pelvis posterior to the rectum. I then dissected the upper rectum beyond the tattooed area on both the right and left lateral aspect. LigaSure was used for hemostasis. I then went back to the area of the distal descending colon and exposed the inferior mesenteric artery at its origin from the aorta. I dissected out the inferior mesenteric artery here and then divided it with the LigaSure as well. I continued dissection of the descending colon freeing its lateral peritoneal a attachments up to the area of the splenic flexure. Care was taken to free it from cirrhosis fascia and the left kidney. The left colon was mobilized medially on its mesentery. The area of the distal descending colon that was targeted for anastomosis was identified. I then went back to the pelvis and dissected up to the upper rectum and freed the perirectal fascia from this area anticipating this to be our distal line of resection. The benign polyp that was felt to be in the upper rectum or distal sigmoid was not really seen nor was the tattoo associated with it. As far as the sigmoid colon tattoo I did not identify any enlarged lymph nodes to suggest metastatic disease. I should also point out that the patient's liver appeared clean with no evidence of metastatic disease either. We then directed our attention back to the splenic flexure of the descending colon. There was abundant omentum with many adhesions to the splenic flexure and the distal transverse colon. It was clear that the splenic flexure would need to be mobilized. The omentum was elevated cephalad and anterior. I began dissecting the
--- NOTE | 2020-09-09 16:24 | SUR.PHASEI ---
PT C/O URGE TO VOID. PLACED ON BEDPAN,
--- NOTE | 2020-09-09 16:37 | SUR.PHASEI ---
PT FELL ASLEEP ON BEDPAN. ASKED PT IF SHE WAS ABLE TO URINATE, PT STATES NO BUT SHE FEELS THE URGE.
[2020-09-09 16:38] LABS: Glucose Point of Care 144 mg/dl (65-105)
--- NOTE | 2020-09-09 16:58 | SUR.PHASEI ---
1640: PT HAS BEEN ON BEDPAN FOR 20 + MINUTES. UNABLE TO VOID. FEELS URGE. DR ALLEN NOTIFIED. ORDER FOR STRAIGHT CATH. 1650; PT CATHED WITHOUT DIFFICULTY. AFTER 5 MINUTES ONLY 10ML CLEAR YELLOW URINE RETURNED.
--- NOTE | 2020-09-09 17:03 | SUR.PHASEI ---
1657; CALLED DR ALLEN, 10ML OF URINE RETURNED. CLEAR YELLOW. DR ALLEN STATES OK TO SEND TO FLOOR. THEY WILL MONITOR URINE OUTPUT.
--- NOTE | 2020-09-09 17:29 | ADMGEN ---
This patient, Letty Irene, was admitted to Medical Room 247-. Patient/family oriented to hospital policies and general routines including ID bracelet, bed and alarms, visiting hours, pain management, procedures, bathroom and other care routines, personal items, smoking policy, room service/diet, and visiting hours. Information on how to activate the Rapid Response Team has been discussed. Patient/Family are encouraged to report perceived risks to care and to ask questions if they do not understand what they are told or what they should do.
[2020-09-09] MEDS: LACTATED RINGERS 1,000 ML 100 ML IV CONT (17:45)
[2020-09-09 17:53] LABS: Glucose Point of Care 163 mg/dl (65-105)
[2020-09-09] MEDS: ONDANSETRON INJ 4 MG/2 ML VIAL IV PUSH (18:41)
[2020-09-09] MEDS: HYDROcodone/acetaminophen (*CRX) 5-325 MG TABLET 1 TAB PO (20:10)
[2020-09-09] MEDS: ATORVASTATIN 10 MG TABLET BY MOUTH (20:16)
--- NOTE | 2020-09-09 20:39 | PM.IMCN ---
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 s/p sigmoid colectomy per gen surgery. regular surveillance as per guidelines # colon polyps: found in routien colonscopy. s/p polypectomy. fu with repeat colonoscopy as per schedule. # Diabets: on metfomrin at home. resumed already. ssi for now in addition. blood sugar at goal. # HTN: on lisinopril. contineu and motinro postoperartively. # postoperative state: Incentive spirometry, pain control, zofran for nausea control. ambulation as ordered # chornic back pain: fronm lumbar radiculopathy: resume hoe medications. # HLP: home meds # hypothyroidsim: levothyroxine. # DVT proph: whenever appropriate per surgeon. Thanks for the consultation. we will follow along with you. HPI Data of Consult Consult date: 09/09/20 Requesting Physician: Everette Dixon MD Primary Care Provider: Flakito Breaux MD Consult Narrative Reason for consult: medical management Narrative: Letty Irene is a 65 year old female who had sigmoid colon resection done for her localised sigmoid colon adenocarcinoma, recently diagnsoed in /2020. She also had other polyps which were removed with colonsocpy. she had intermittent bloody stool and had colonoscopy done as a screening test. she has diabetes, htn and hlp. no cardiac history. she is on oha for diabetes and is tyically well controlled. she reports she is sore in her abdmen and had nausea and vomited this evening, no other complaints. no chest pain or sob. Review of Systems Review of Systems: Narrative: - CONSTITUTIONAL: Denies weight loss, fever and chills. - HEENT: Denies changes in vision and hearing - RESPIRATORY: Denies SOB and cough. - CV: Denies palpitations and CP. - GI: reports expected abdominal pain, nausea, vomiting and denies diarrhea. - : Denies dysuria and urinary frequency. - MSK: Denies myalgia and joint pain. - SKIN: Denies rash and pruritus. - NEUROLOGICAL: Denies headache and syncope. - PSYCHIATRIC: Denies recent changes in mood. Denies anxiety and depression. All systems reviewed & are unremarkable except as noted in HPI and below PMFSH Past Medical History Medical History Dementia Diabetes Essential (primary) hypertension GERD (gastroesophageal reflux disease) Hyperlipidemia Hypothyroidism (acquired) Pre-op exam Sigmoid polyp Surgical History Surgical History H/O rotator cuff surgery H/O tubal ligation History of appendectomy History of cholecystectomy Previous back surgery Family History Family History Father Hypertension Family history of malignant neoplasm of urinary bladder Mother Hypertension, Onset Age: 50 Heart attack Sibling Hypertension Family history of elevated blood lipids Fam
[2020-09-09 21:37] LABS: Glucose Point of Care 193 mg/dl (65-105)
[2020-09-09] MEDS: metFORMIN HCL XR 500 MG TAB.SR.24H PO (22:02)
[2020-09-10] MEDS: SODIUM CHLORIDE 0.9% IV 1,000 ML 999 ML IV CONT ×2 (02:05→14:21)
[2020-09-10] MEDS: LACTATED RINGERS 1,000 ML 100 ML IV CONT (03:41)
[2020-09-10 05:16] VITALS: BP 130/56; PULSE 90; RESP 20; TEMP 36.4; O2SAT 95
[2020-09-10 05:34] LABS: Hematocrit 33.5 % (37.0-47.0); Hemoglobin 11.1 g/dL (12.0-15.0); Mean Corpuscular HGB Conc 33.1 g/dl (32-36); Mean Corpuscular Hemoglobin 29.6 pg (26-34); Mean Corpuscular Volume 89.3 fl (80-100); Mean Platelet Volume 10.6 fl (7.4-10.4); Platelet Count Result 193 k/mm3 (150-375); Red Blood Count 3.75 M/mm3 (4.2-5.4); White Blood Count 13.4 K/mm3 (4.5-10.0)
[2020-09-10 05:55] LABS: Anion Gap 7 mmol/L (8-16); Blood Urea Nitrogen 15 mg/dL (7-17); Calcium 8.1 mg/dL (8.4-10.2); Carbon Dioxide 22 mmol/L (22-30); Chloride 109 mmol/L (98-107); Estimated CRCL calculation 33 ml/min; Estimated Glomerular Filt Rate 38; Glucose 149 mg/dL (65-105); Potassium 4.2 mmol/L (3.4-5.0); Sodium 138 mmol/L (137-145)
[2020-09-10] MEDS: LEVOTHYROXINE SODIUM 88 MCG TABLET PO (06:42)
[2020-09-10] MEDS: HYDROcodone/acetaminophen (*CRX) 5-325 MG TABLET 1 TAB PO ×4 (07:45→23:18)
[2020-09-10 08:26] LABS: Glucose Point of Care 122 mg/dl (65-105)
[2020-09-10] MEDS: lisinopriL 20 MG TABLET PO (08:55)
[2020-09-10] MEDS: ENOXAPARIN 40 MG/0.4 ML SYRINGE SUB-Q (08:55)
[2020-09-10] MEDS: PANTOPRAZOLE 40 MG TABLET PO (08:55)
--- NOTE | 2020-09-10 10:00 | PM.PNGS ---
Progress Note: A&P Assessment and Plan (1) Malignant neoplasm of sigmoid colon: Code(s): C18.7 - Malignant neoplasm of sigmoid colon Status: Chronic Assessment and Plan: incisions healing well, had some vomiting last night but nausea gone this morning. She had nausea and vomiting with her bowel prep and was still somewhat nauseated prior to surgery yesterday. Up in chair and up walking today. Repeat labs and exam again tomorrow. (2) Acute renal failure with oliguria: Code(s): N17.9 - Acute kidney failure, unspecified; R34 - Anuria and oliguria Status: Acute Assessment and Plan: Farley catheter had to be placed last night due to lack of urine output. Creatinine has increased today to 1.4. Last creatinine, 09/01/2020, was 0.7. BUN is up from 11 on 08/26 6-15 this morning. I suspect this is mostly from dehydration. Will give fluid bolus and continue IV normal saline with small amount of KCl. Leave Farley today. Hopefully removed tomorrow or the next day. Monitor closely. (3) Diabetes: Qualifiers: Diabetes mellitus type: type 2 Diabetes mellitus retirement insulin use: without buttermaker helper use Diabetes mellitus complication status: without complication Qualified Code(s): E11.9 - Type 2 diabetes mellitus without complications Code(s): E11.9 - Type 2 diabetes mellitus without complications Status: Chronic Assessment and Plan: Hospitalist consultation and care appreciated (4) Essential (primary) hypertension: Code(s): I10 - Essential (primary) hypertension Status: Chronic (5) BMI 35.0-35.9,adult: Code(s): Z68.35 - Body mass index [BMI] 35.0-35.9, adult Status: Chronic Subjective Subjective Date/Time Seen: 09/10/20 10:00 Post Op day: 1 Patient reports: feels better, no flatus, no bowel movement, nausea, vomiting ( X2 last night but no nausea this morning) and afebrile Review of Systems Review of Systems: All systems reviewed & are unremarkable except as noted in HPI and below Constitutional: Constitutional: Reports as per HPI, Denies body ache(s), Denies chills, Denies fever(s) and Denies headache(s) Cardiovascular: Cardiovascular: Denies chest pain and Denies dyspnea Respiratory: Respiratory: Denies cough and Denies dyspnea Gastrointestinal: Gastrointestinal: Reports as per HPI, Reports abdominal pain, Denies GI cramping, Denies heartburn, Reports nausea and Reports vomiting ( nausea better this morning) Neurologic: Denies confusion and Denies headache(s) Exam Const: General: comfortable and no acute distress; No confusion Orientation/consciousness: patient oriented x3 and No confusion GI: Inspection: non-distended, incision ( incisions dry and intact, appear to be healing) and obesity GI Palp: Yes Soft to palpation, Yes Tenderness to palpation present (GI), No Guarding due to palpation present (GI) and No Rebound tenderness present Neuro: General: patient oriented x3, no focal motor deficits and No confusion Extrem: General: no calf tenderness and no edema Psych: Affect: normal affect Insight: Good insight present (Psych) Judgement: Good judgement present (Psych) Objective Data Vital Signs Vital Signs: Vital Signs - 24 hr 09/09/20 15:46 09/09/20 16:00 09/09/20 16:15 Temperature 36.3 C L Pulse Rate 95 94 95 Respiratory Rate 17 18 18 Blood Pressure 133/54 L 151/73 H 156/72 H Pulse Oximetry 96 99 95 09/09/20 16:30 09/09/20 16:45 09/09/20 17:00 Temperature Pulse Rate 96 94 94 Respiratory Rate 16 14 16 Blood Pressure 146/74 H 162/68 H 158/72 H Pulse Oximetry 96 94 95 09/09/20 17:45 09/09/20 18:00 09/09/20 20:17 Temperature 35.9 C L 36.1 C L 36.6 C Pulse Rate 95 98 105 H Respiratory Rate 16 16 18 Blood Pressure 158/67 H 153/71 H 170/75 H Pulse Oximetry 92 97 99 09/09/20 22:01 09/10/20 05:16 Temperature 36.4 C Pulse Rate 90 Respiratory Rate 20 Blood Pressure 130/56 L Pulse Oxime
[2020-09-10] MEDS: MORPHINE SULFATE (*CRX) 2 MG/ML INJ 1 MG IV PUSH ×2 (10:19→20:32)
--- NOTE | 2020-09-10 10:52 | WPDANESPN ---
Anes - Prog Note Post-Op Date/Time: 09/10/20 10:52 Cardiovascular status: normal Respiratory status: normal Airway patency: baseline Mental status: baseline Post-Op hydration status: normal Vital Signs: Last Vital Signs Temp 36.4 C 09/10/20 05:16 Pulse 90 09/10/20 05:16 Resp 20 09/10/20 05:16 BP 130/56 L 09/10/20 05:16 Pulse Ox 95 09/10/20 05:16 Pain Score (VAS): 210 I/O: Intake & Output 09/09/20 09/10/20 09/10/20 23:59 07:59 15:59 Intake Total 100 1290 Output Total 110 200 Balance -10 1090 Laboratory Tests 09/10/20 05:16 09/10/20 05:16 09/09/20 09/09/20 09/09/20 15:51 17:49 21:32 WBC RBC Hgb Hct MCV MCH MCHC RDW Plt Count MPV Sodium Potassium Chloride Carbon Dioxide Anion Gap BUN Creatinine Estim Creat Clear Calc Estimated GFR Glucose POC Capillary Glucose 144 H 163 H 193 H Calcium 09/10/20 09/10/20 09/10/20 05:16 05:16 08:23 WBC 13.4 H RBC 3.75 L Hgb 11.1 L Hct 33.5 L MCV 89.3 MCH 29.6 MCHC 33.1 RDW 13.0 Plt Count 193 MPV 10.6 H Sodium 138 Potassium 4.2 Chloride 109 H Carbon Dioxide 22 Anion Gap 7 L BUN 15 Creatinine 1.40 H Estim Creat Clear Calc 33 Estimated GFR 38 L Glucose 149 H POC Capillary Glucose 122 H Calcium 8.1 L Post-procedural complaints: nausea and vomiting Patient Feedback: Patient satisfied with anesthetic care. Other Findings: C/O N/V last night. Resolved today. Just returned to bed after time spent in the chair. IS instruction provided
[2020-09-10 12:16] LABS: Glucose Point of Care 103 mg/dl (65-105)
[2020-09-10] MEDS: KCL 20MEQ/0.9% SOD CHL 1,000 ML 125 ML IV CONT ×3 (12:29→23:22)
[2020-09-10] MEDS: ONDANSETRON INJ 4 MG/2 ML VIAL IV PUSH ×2 (13:47→23:25)
--- NOTE | 2020-09-10 15:25 | P.PNIM_ITS ---
Progress Note: A&P Assessment and Plan (1) Malignant neoplasm of sigmoid colon: Code(s): C18.7 - Malignant neoplasm of sigmoid colon Status: Chronic Assessment and Plan: * sigmoid adenocarcinoma: limited to colon. * s/p sigmoid colectomy per gen surgery. * regular surveillance as per guidelines * colon polyps: found in routien colonscopy. * s/p polypectomy. * follow up with repeat colonoscopy as per schedule. * Managed by general surgery * Antiemetics and pain control per surgery * DVT prophylaxis Lovenox (2) Essential (primary) hypertension: Code(s): I10 - Essential (primary) hypertension Status: Chronic Assessment and Plan: * Current blood pressure is 130/56 * Lisinopril 20 mg p.o. daily * Trend blood pressures * Adjust medications as needed (3) Carcinoma of colon: Code(s): C18.9 - Malignant neoplasm of colon, unspecified Status: Deleted (4) Diabetes: Qualifiers: Diabetes mellitus complication status: without complication Diabetes mellitus rat exterminator insulin use: without prison use Diabetes mellitus type: type 2 Qualified Code(s): E11.9 - Type 2 diabetes mellitus without complications Code(s): E11.9 - Type 2 diabetes mellitus without complications Status: Chronic Assessment and Plan: * Continue home metformin 500mg PO daily * Accu check AC/HS * Sliding scale * Adjust medications as needed (5) Spinal stenosis, lumbar region with neurogenic claudication: Code(s): M48.062 - Spinal stenosis, lumbar region with neurogenic claudication Status: Acute Assessment and Plan: * lumbar radiculopathy * PRP pain medications are ordered (6) Pure hyperglyceridemia: Code(s): E78.1 - Pure hyperglyceridemia Status: Acute (7) Hypothyroidism (acquired): Code(s): E03.9 - Hypothyroidism, unspecified Status: Acute Assessment and Plan: * Continue home levothyroxine 88 meq p.o. daily (8) Hyperlipidemia: Qualifiers: Hyperlipidemia type: unspecified Qualified Code(s): E78.5 - Hyperlipidemia, unspecified Code(s): E78.5 - Hyperlipidemia, unspecified Status: Acute Assessment and Plan: * Continue home atorvastatin 10 mg at bedtime Additional Plan Thanks for the consultation. we will follow along with you. Time Spent With Patient Time with patient: 25 - 35 minutes Subjective Date/time seen: 09/10/20 15:25 Letty Irene is a 65 year old female with a past medical history Dementia, Diabetes, GERD, HLD, HTN who had sigmoid colon resection done for her localized sigmoid colon adenocarcinoma, recently diagnosed in 2020. She also had other polyps which were removed with colonoscopy. she had intermittent bloody stool and had colonoscopy done as a screening test. Her complaints today consist of nausea, and vomiting. She also stated that her stomach hurts as well. She was able to eat, but only tolerated a few bites. She also stated that she had some dizziness and lightheadedness that came and gone pretty quickly. Patient stated that she is also having some weakness and fatigue. Patient did deny chest pain, shortness of breath, constipation, diarrhea, urinary dysfunction, pain or burning with urinating, headache, confusion, falls, syncope, numbness and tingling. Review of Systems Review of Systems: All systems reviewed & are unremarkable except as noted in HPI and below Exam
--- NOTE | 2020-09-10 15:25 | PM.IMPN ---
Progress Note: A&P Assessment and Plan (1) Malignant neoplasm of sigmoid colon: Code(s): C18.7 - Malignant neoplasm of sigmoid colon Status: Chronic Assessment and Plan: sigmoid adenocarcinoma: limited to colon. s/p sigmoid colectomy per gen surgery. regular surveillance as per guidelines colon polyps: found in routien colonscopy. s/p polypectomy. follow up with repeat colonoscopy as per schedule. Managed by general surgery Antiemetics and pain control per surgery DVT prophylaxis Lovenox (2) Essential (primary) hypertension: Code(s): I10 - Essential (primary) hypertension Status: Chronic Assessment and Plan: Current blood pressure is 130/56 Lisinopril 20 mg p.o. daily Trend blood pressures Adjust medications as needed (3) Carcinoma of colon: Code(s): C18.9 - Malignant neoplasm of colon, unspecified Status: Deleted (4) Diabetes: Qualifiers: Diabetes mellitus complication status: without complication Diabetes mellitus care home insulin use: without moth exterminator use Diabetes mellitus type: type 2 Qualified Code(s): E11.9 - Type 2 diabetes mellitus without complications Code(s): E11.9 - Type 2 diabetes mellitus without complications Status: Chronic Assessment and Plan: Continue home metformin 500mg PO daily Accu check AC/HS Sliding scale Adjust medications as needed (5) Spinal stenosis, lumbar region with neurogenic claudication: Code(s): M48.062 - Spinal stenosis, lumbar region with neurogenic claudication Status: Acute Assessment and Plan: lumbar radiculopathy PRP pain medications are ordered (6) Pure hyperglyceridemia: Code(s): E78.1 - Pure hyperglyceridemia Status: Acute (7) Hypothyroidism (acquired): Code(s): E03.9 - Hypothyroidism, unspecified Status: Acute Assessment and Plan: Continue home levothyroxine 88 meq p.o. daily (8) Hyperlipidemia: Qualifiers: Hyperlipidemia type: unspecified Qualified Code(s): E78.5 - Hyperlipidemia, unspecified Code(s): E78.5 - Hyperlipidemia, unspecified Status: Acute Assessment and Plan: Continue home atorvastatin 10 mg at bedtime Additional Plan Thanks for the consultation. we will follow along with you. Time Spent With Patient Time with patient: 25 - 35 minutes Subjective Date/time seen: 09/10/20 15:25 Letty Irene is a 65 year old female with a past medical history Dementia, Diabetes, GERD, HLD, HTN who had sigmoid colon resection done for her localized sigmoid colon adenocarcinoma, recently diagnosed in 2020. She also had other polyps which were removed with colonoscopy. she had intermittent bloody stool and had colonoscopy done as a screening test. Her complaints today consist of nausea, and vomiting. She also stated that her stomach hurts as well. She was able to eat, but only tolerated a few bites. She also stated that she had some dizziness and lightheadedness that came and gone pretty quickly. Patient stated that she is also having some weakness and fatigue. Patient did deny chest pain, shortness of breath, constipation, diarrhea, urinary dysfunction, pain or burning with urinating, headache, confusion, falls, syncope, numbness and tingling. Review of Systems Review of Systems: All systems reviewed & are unremarkable except as noted in HPI and below Exam Const: General: cooperative, healthy appearing, no acute distress, well developed, alert, awake, ill appearing and uncomfortable Nutritional Appearance: well nourished Orientation/consciousness: patient oriented x3 Limitations: no limitations HENMT: Head: normal to inspection Ears: hearing grossly normal bilaterally General nose exam: Normal external nose present Mouth: Yes Normal oral and palatal mucosa present, Yes lip normal and Yes tongue normal Teeth and gingiva: abnormal tooth
[2020-09-10 16:54] LABS: Glucose Point of Care 105 mg/dl (65-105)
[2020-09-10] MEDS: metFORMIN HCL XR 500 MG TAB.SR.24H PO (17:08)
[2020-09-10 20:26] VITALS: BP 156/67; PULSE 104; RESP 20; TEMP 36.5; O2SAT 95
[2020-09-10] MEDS: ALVIMOPAN 12 MG CAPSULE PO (20:27)
[2020-09-10] MEDS: ATORVASTATIN 10 MG TABLET BY MOUTH (20:27)
[2020-09-10 21:08] LABS: Glucose Point of Care 127 mg/dl (65-105)
[2020-09-11 00:04] VITALS: BP 155/83; PULSE 116; RESP 20; TEMP 36.4; O2SAT 93
[2020-09-11 05:20] VITALS: BP 156/73; PULSE 99; RESP 18; TEMP 36.3; O2SAT 94
[2020-09-11 05:29] LABS: Hematocrit 31.8 % (37.0-47.0); Hemoglobin 10.4 g/dL (12.0-15.0); Mean Corpuscular HGB Conc 32.7 g/dl (32-36); Mean Corpuscular Hemoglobin 29.5 pg (26-34); Mean Corpuscular Volume 90.1 fl (80-100); Mean Platelet Volume 10.8 fl (7.4-10.4); Platelet Count Result 183 k/mm3 (150-375); Red Blood Count 3.53 M/mm3 (4.2-5.4); Red Cell Distribution Width 13.3 % (11.5-14.5); White Blood Count 12.7 K/mm3 (4.5-10.0)
[2020-09-11] MEDS: LEVOTHYROXINE SODIUM 88 MCG TABLET PO (05:39)
[2020-09-11 05:59] LABS: Anion Gap 6 mmol/L (8-16); Blood Urea Nitrogen 13 mg/dL (7-17); Calcium 8.1 mg/dL (8.4-10.2); Carbon Dioxide 21 mmol/L (22-30); Chloride 110 mmol/L (98-107); Estimated CRCL calculation 33 ml/min; Estimated Glomerular Filt Rate 38; Glucose 113 mg/dL (65-105); Potassium 4.1 mmol/L (3.4-5.0); Sodium 137 mmol/L (137-145)
[2020-09-11] MEDS: ENOXAPARIN 40 MG/0.4 ML SYRINGE SUB-Q (08:14)
[2020-09-11] MEDS: PANTOPRAZOLE 40 MG TABLET PO (08:14)
[2020-09-11] MEDS: ALVIMOPAN 12 MG CAPSULE PO ×2 (08:14→20:42)
[2020-09-11] MEDS: lisinopriL 20 MG TABLET PO (08:14)
[2020-09-11] MEDS: KCL 20MEQ/0.9% SOD CHL 1,000 ML 125 ML IV CONT ×2 (08:15→16:48)
[2020-09-11 08:18] LABS: Glucose Point of Care 99 mg/dl (65-105)
--- NOTE | 2020-09-11 09:50 | PM.PNGS ---
Progress Note: A&P Assessment and Plan (1) Malignant neoplasm of sigmoid colon: Code(s): C18.7 - Malignant neoplasm of sigmoid colon Status: Chronic Assessment and Plan: Await return of bowel function. Increase activity. (2) Acute renal failure with oliguria: Code(s): N17.9 - Acute kidney failure, unspecified; R34 - Anuria and oliguria Status: Acute Assessment and Plan: Creatinine in remains at 1.4. Urine output adequate. Continue current IV fluids. (3) BMI 35.0-35.9,adult: Code(s): Z68.35 - Body mass index [BMI] 35.0-35.9, adult Status: Chronic (4) Essential (primary) hypertension: Code(s): I10 - Essential (primary) hypertension Status: Chronic Subjective Subjective Date/Time Seen: 09/11/20 09:50 Interval history: No flatus or BM yet. Pain controlled. No more nausea or vomiting. Not much appetite yet. Exam GI: Inspection: incision (Incisions dry and intact) GI Palp: Yes Soft to palpation and Yes Tenderness to palpation present (GI) (Incisional) Auscultation: Hypoactive bowel sounds present Objective Data Vital Signs Vital Signs: Vital Signs - 24 hr 09/10/20 20:26 09/11/20 00:04 09/11/20 05:20 Temperature 36.5 C 36.4 C L 36.3 C L Pulse Rate 104 H 116 H 99 Respiratory Rate 20 20 18 Blood Pressure 156/67 H 155/83 H 156/73 H Pulse Oximetry 95 93 94 Intake/Output Intake/Output: Intake & Output 09/08/20 09/09/20 09/10/20 09/11/20 23:59 23:59 23:59 23:59 Intake Total 150 5810 1190 Output Total 110 1100 500 Balance 40 4710 690 Meds/Results Medications: Active Medications Generic Name Dose Route Start Last Admin Trade Name Freq PRN Reason Stop Dose Admin Acetaminophen 500 mg 09/09/20 17:16 Acetaminophen 500 Mg Tablet PO Q6H PRN Mild Pain (1-3) or Fever Hydrocodone Bitart/Acetaminophen 1 tab 09/09/20 17:16 09/10/20 23:18 Hydrocodone/Acetaminophen (*Crx) 5-325 Mg Tablet PO 1 tab Q4H PRN Administration Pain Rated 4-6 Hydrocodone Bitart/Acetaminophen 1 tab 09/09/20 17:16 Hydrocodone/Acetaminophen (*Crx) 7.5-325 Mg Tablet PO Q4H PRN Pain Rated 7-10 Alvimopan 12 mg 09/10/20 21:00 09/11/20 08:14 Alvimopan 12 Mg Capsule PO 09/17/20 21:01 12 mg Q12HR ZAC Administration Atorvastatin Calcium 10 mg 09/09/20 21:00 09/10/20 20:27 Atorvastatin 10 Mg Tablet BY MOUTH 10 mg HS ZAC Administration Dextrose 12.5 gm 09/09/20 17:16 Dextrose 50% 25 Gm/50 Ml Syringe IV PUSH PRN PRN Hypoglycemia Protocol Enoxaparin Sodium 40 mg 09/10/20 09:00 09/11/20 08:14 Enoxaparin 40 Mg/0.4 Ml Syringe SUB-Q 40 mg DAILY ZAC Administration Glucagon 1 mg 09/09/20 17:16 Glucagon For Inj 1 Mg Vial IM PRN PRN Hypoglycemia Protocol Glucose 15 gm 09/09/20 17:16 Glucose Oral Gel 15 Gm Of Glucse In 37.5 Gm Tube PO PRN PRN Hypoglycemia Protocol Dextrose 1,000 mls @ 100 mls/hr 09/09/20 17:16 Dextrose 5% 1,000 Ml IVPB PRN PRN Hypoglycemia Protocol Potassium Chloride/Sodium Chloride 1,000 mls @ 125 mls/hr 09/10/20 10:00 09/11/20 08:15 Kcl 20 Meq/Ns IV CONT 125 mls/hr .Q8H ZAC Administration Insulin Aspart 4 - 8 units 09/09/20 17:16 09/11/20 08:15 Insulin Aspart (*Bkc) 100 Units/Ml SUB-Q Not Given [facility] Protocol Levothyroxine Sodium 88 mcg 09/10/20 06:30 09/11/20 05:39 Levothyroxine Sodium 88 Mcg Tablet PO 88 mcg DAILY@0630 ZAC Administration Lisinopril 20 mg 09/10/20 09:00 09/11/20 08:14 Lisinopril 20 Mg Tablet PO 20 mg DAILY ZAC Administration Metformin HCl 500 mg 09/09/20 18:00 09/10/20 17:08 Metformin Hcl Xr 500 Mg Tab.Sr.24h PO 500 mg QPM ZAC Administration Morphine Sulfate 1 mg 09/09/20 17:16 09/10/20 20:32 Morphine Sulfate (*Crx) 2 Mg/Ml Inj IV PUSH 1 mg Q2H PRN Administration Pain Rated 4-6 Morphine Sulfate 2 mg
[2020-09-11] MEDS: HYDROcodone/acetaminophen (*CRX) 5-325 MG TABLET 1 TAB PO ×3 (09:55→20:39)
[2020-09-11] MEDS: ONDANSETRON INJ 4 MG/2 ML VIAL IV PUSH ×2 (09:55→14:04)
[2020-09-11 11:19] LABS: Glucose Point of Care 100 mg/dl (65-105)
[2020-09-11 14:00] VITALS: BP 155/75; PULSE 97; RESP 16; TEMP 37.2; O2SAT 94
--- NOTE | 2020-09-11 15:12 | P.PNIM_ITS ---
Progress Note: A&P Assessment and Plan (1) Malignant neoplasm of sigmoid colon: Code(s): C18.7 - Malignant neoplasm of sigmoid colon Status: Chronic Assessment and Plan: * sigmoid adenocarcinoma: limited to colon. * s/p sigmoid colectomy per gen surgery. * regular surveillance as per guidelines * Bowel sounds are absent at this time * colon polyps: found in routine colonoscopy. * s/p polypectomy. * follow up with repeat colonoscopy as per schedule. * Managed by general surgery * Antiemetics and pain control per surgery * DVT prophylaxis Lovenox * Will add Reglan 10mg IV Q6hr PRN (2) Essential (primary) hypertension: Code(s): I10 - Essential (primary) hypertension Status: Chronic Assessment and Plan: * Current blood pressure is 155/75 * Lisinopril 20 mg p.o. daily * Trend blood pressures * Adjust medications as needed (3) Diabetes: Qualifiers: Diabetes mellitus type: type 2 Diabetes mellitus long line teamster insulin use: without jail use Diabetes mellitus complication status: without complication Qualified Code(s): E11.9 - Type 2 diabetes mellitus without complications Code(s): E11.9 - Type 2 diabetes mellitus without complications Status: Chronic Assessment and Plan: * Continue home metformin 500mg PO daily * Accu check AC/HS * Sliding scale * Adjust medications as needed (4) Spinal stenosis, lumbar region with neurogenic claudication: Code(s): M48.062 - Spinal stenosis, lumbar region with neurogenic claudication Status: Acute Assessment and Plan: * lumbar radiculopathy * PRP pain medications are ordered (5) Hypothyroidism (acquired): Code(s): E03.9 - Hypothyroidism, unspecified Status: Acute Assessment and Plan: * Continue home levothyroxine 88 meq p.o. daily (6) Hyperlipidemia: Qualifiers: Hyperlipidemia type: unspecified Qualified Code(s): E78.5 - Hyperlipidemia, unspecified Code(s): E78.5 - Hyperlipidemia, unspecified Status: Acute Assessment and Plan: * Continue home atorvastatin 10 mg at bedtime Additional Plan Thanks for the consultation. we will follow along with you. Time Spent With Patient Time with patient: 15 - 25 minutes Subjective Date/time seen: 09/11/20 2255 Letty Irene is a 65 year old female with a past medical history Dementia, Diabetes, GERD, HLD, HTN who had sigmoid colon resection done for her localized sigmoid colon adenocarcinoma, recently diagnosed in 2020. She also had other polyps which were removed with colonoscopy. she had intermittent bloody stool and had colonoscopy done as a screening test. Patient still complains of nausea and vomiting. She also states that she is having abdominal pain. Patient stated that she still has decrease in appetite however she still tries to order an eat. Patient does state that the Zofran is helping her however she states that when her tray gets her she does isn't interested. Patient denies gas or bowel movement but said she did belch twice. Patient did deny chest pain, shortness of breath, constipation, diarrhea, urinary dysfunction, pain or burning with urinating, headache, confusion, falls, syncope, numbness and tingling. Patient also states that she is a little weak and has been experiencing fatigue. However she stated this is probably related to the surgery. Review of Systems Review of Systems: All systems reviewed & are unremarkable
--- NOTE | 2020-09-11 15:12 | PM.IMPN ---
Progress Note: A&P Assessment and Plan (1) Malignant neoplasm of sigmoid colon: Code(s): C18.7 - Malignant neoplasm of sigmoid colon Status: Chronic Assessment and Plan: sigmoid adenocarcinoma: limited to colon. s/p sigmoid colectomy per gen surgery. regular surveillance as per guidelines Bowel sounds are absent at this time colon polyps: found in routine colonoscopy. s/p polypectomy. follow up with repeat colonoscopy as per schedule. Managed by general surgery Antiemetics and pain control per surgery DVT prophylaxis Lovenox Will add Reglan 10mg IV Q6hr PRN (2) Essential (primary) hypertension: Code(s): I10 - Essential (primary) hypertension Status: Chronic Assessment and Plan: Current blood pressure is 155/75 Lisinopril 20 mg p.o. daily Trend blood pressures Adjust medications as needed (3) Diabetes: Qualifiers: Diabetes mellitus type: type 2 Diabetes mellitus penitentiary insulin use: without termite treater helper use Diabetes mellitus complication status: without complication Qualified Code(s): E11.9 - Type 2 diabetes mellitus without complications Code(s): E11.9 - Type 2 diabetes mellitus without complications Status: Chronic Assessment and Plan: Continue home metformin 500mg PO daily Accu check AC/HS Sliding scale Adjust medications as needed (4) Spinal stenosis, lumbar region with neurogenic claudication: Code(s): M48.062 - Spinal stenosis, lumbar region with neurogenic claudication Status: Acute Assessment and Plan: lumbar radiculopathy PRP pain medications are ordered (5) Hypothyroidism (acquired): Code(s): E03.9 - Hypothyroidism, unspecified Status: Acute Assessment and Plan: Continue home levothyroxine 88 meq p.o. daily (6) Hyperlipidemia: Qualifiers: Hyperlipidemia type: unspecified Qualified Code(s): E78.5 - Hyperlipidemia, unspecified Code(s): E78.5 - Hyperlipidemia, unspecified Status: Acute Assessment and Plan: Continue home atorvastatin 10 mg at bedtime Additional Plan Thanks for the consultation. we will follow along with you. Time Spent With Patient Time with patient: 15 - 25 minutes Subjective Date/time seen: 09/11/20 6739 Letty Irene is a 65 year old female with a past medical history Dementia, Diabetes, GERD, HLD, HTN who had sigmoid colon resection done for her localized sigmoid colon adenocarcinoma, recently diagnosed in 2020. She also had other polyps which were removed with colonoscopy. she had intermittent bloody stool and had colonoscopy done as a screening test. Patient still complains of nausea and vomiting. She also states that she is having abdominal pain. Patient stated that she still has decrease in appetite however she still tries to order an eat. Patient does state that the Zofran is helping her however she states that when her tray gets her she does isn't interested. Patient denies gas or bowel movement but said she did belch twice. Patient did deny chest pain, shortness of breath, constipation, diarrhea, urinary dysfunction, pain or burning with urinating, headache, confusion, falls, syncope, numbness and tingling. Patient also states that she is a little weak and has been experiencing fatigue. However she stated this is probably related to the surgery. Review of Systems Review of Systems: All systems reviewed & are unremarkable except as noted in HPI and below Exam Const: General: cooperative, healthy appearing, no acute distress, well developed, alert, awake, ill appearing and uncomfortable Nutritional Appearance: well nourished Orientation/consciousness: patient oriented x3 Limitations: no limitations HENMT: Head: normal to inspection Ears: hearing grossly normal bilaterally General nose exam: Normal external nose present Mouth: Yes Normal oral and palatal mucosa present
[2020-09-11 16:46] LABS: Glucose Point of Care 89 mg/dl (65-105)
[2020-09-11] MEDS: metFORMIN HCL XR 500 MG TAB.SR.24H PO (18:02)
[2020-09-11 20:14] LABS: Glucose Point of Care 90 mg/dl (65-105)
[2020-09-11 20:25] VITALS: PULSE 70; RESP 16; O2SAT 94
[2020-09-11] MEDS: ATORVASTATIN 10 MG TABLET BY MOUTH (20:42)
[2020-09-11 22:00] VITALS: BP 152/87; PULSE 92; RESP 18; TEMP 36.8; O2SAT 96
[2020-09-12] MEDS: KCL 20MEQ/0.9% SOD CHL 1,000 ML 125 ML IV CONT (01:10)
[2020-09-12] MEDS: LEVOTHYROXINE SODIUM 88 MCG TABLET PO (05:21)
[2020-09-12 05:45] LABS: Basophils Percent Auto 0.2 % (0.2-1.2); Eosinophils Absolute Auto 0.3 K/mm3 (0-0.3); Eosinophils Percent Auto 2.3 % (0-4.4); Hematocrit 30.4 % (37.0-47.0); Immature Granulocyte Absolute 0.07 K/mm3 (0.00-0.031); Immature Granulocyte Percent A 0.6 % (0-0.5); Lymphocytes Absolute Auto 1.43 K/mm3 (0.9-3.2); Lymphocytes Percent Auto 12.9 % (18.3-44.2); Mean Corpuscular HGB Conc 32.9 g/dl (32-36); Mean Corpuscular Hemoglobin 29.8 pg (26-34); Mean Corpuscular Volume 90.5 fl (80-100); Mean Platelet Volume 10.7 fl (7.4-10.4); Monocytes Absolute Auto 0.6 K/mm3 (0.1-0.6); Monocytes Percent Auto 5.4 % (2.6-8.5); Neutrophils Absolute Auto 8.7 K/mm3 (1.3-6.7); Neutrophils Percent Auto 78.6 % (45.5-73.1); Platelet Count Result 173 k/mm3 (150-375); Red Blood Count 3.36 M/mm3 (4.2-5.4); Red Cell Distribution Width 13.2 % (11.5-14.5); White Blood Count 11.1 K/mm3 (4.5-10.0)
[2020-09-12 05:54] LABS: Alanine Aminotransferase 13 U/L (4-35); Albumin Level 2.7 g/dL (3.5-5.1); Alkaline Phosphatase 67 U/L (38-126); Anion Gap 7 mmol/L (8-16); Aspartate Amino Transferase 16 U/L (14-36); Bilirubin,Total 0.3 mg/dL (0.2-1.3); Blood Urea Nitrogen 12 mg/dL (7-17); Carbon Dioxide 20 mmol/L (22-30); Chloride 111 mmol/L (98-107); Estimated CRCL calculation 36 ml/min; Estimated Glomerular Filt Rate 41; Glucose 85 mg/dL (65-105); Magnesium 1.7 mg/dL (1.6-2.3); Potassium 4.3 mmol/L (3.4-5.0); Sodium 138 mmol/L (137-145)
[2020-09-12 06:00] VITALS: BP 156/74; PULSE 80; RESP 18; TEMP 37.1; O2SAT 96
[2020-09-12] MEDS: PANTOPRAZOLE 40 MG TABLET PO (08:11)
[2020-09-12] MEDS: ALVIMOPAN 12 MG CAPSULE PO ×2 (08:11→20:06)
[2020-09-12] MEDS: lisinopriL 20 MG TABLET PO (08:11)
[2020-09-12] MEDS: ENOXAPARIN 40 MG/0.4 ML SYRINGE SUB-Q (08:12)
[2020-09-12 09:42] LABS: Glucose Point of Care 83 mg/dl (65-105)
[2020-09-12] MEDS: HYDROcodone/acetaminophen (*CRX) 5-325 MG TABLET 1 TAB PO (10:11)
[2020-09-12] MEDS: ONDANSETRON INJ 4 MG/2 ML VIAL IV PUSH (10:11)
--- NOTE | 2020-09-12 11:40 | P.PNIM_ITS ---
Progress Note: A&P Assessment and Plan (1) Malignant neoplasm of sigmoid colon: Code(s): C18.7 - Malignant neoplasm of sigmoid colon Status: Chronic Assessment and Plan: * sigmoid adenocarcinoma: limited to colon. * s/p sigmoid colectomy per gen surgery. * regular surveillance as per guidelines * Bowel sounds are absent at this time * colon polyps: found in routine colonoscopy. * s/p polypectomy. * follow up with repeat colonoscopy as per schedule. * Managed by general surgery * Antiemetics and pain control per surgery * DVT prophylaxis Lovenox * Will add Reglan 10mg IV Q6hr PRN * Farley should come out * Diet low fiber and advanced per surgery (2) Essential (primary) hypertension: Code(s): I10 - Essential (primary) hypertension Status: Chronic Assessment and Plan: * Current blood pressure is 156/74 * Lisinopril 20 mg p.o. daily * Trend blood pressures * Adjust medications as needed (3) Diabetes: Qualifiers: Diabetes mellitus type: type 2 Diabetes mellitus termite treater insulin use: without termite treater use Diabetes mellitus complication status: without complication Qualified Code(s): E11.9 - Type 2 diabetes mellitus without complications Code(s): E11.9 - Type 2 diabetes mellitus without complications Status: Chronic Assessment and Plan: * Continue home metformin 500mg PO daily * Accu check AC/HS * Sliding scale * Adjust medications as needed (4) Spinal stenosis, lumbar region with neurogenic claudication: Code(s): M48.062 - Spinal stenosis, lumbar region with neurogenic claudication Status: Acute Assessment and Plan: * lumbar radiculopathy * PRN pain medications are ordered (5) Hypothyroidism (acquired): Code(s): E03.9 - Hypothyroidism, unspecified Status: Acute Assessment and Plan: * Continue home levothyroxine 88 meq p.o. daily (6) Hyperlipidemia: Qualifiers: Hyperlipidemia type: unspecified Qualified Code(s): E78.5 - Hyperlipidemia, unspecified Code(s): E78.5 - Hyperlipidemia, unspecified Status: Acute Assessment and Plan: * Continue home atorvastatin 10 mg at bedtime Additional Plan Thanks for the consultation. we will follow along with you. Time Spent With Patient Time with patient: 15 - 25 minutes Subjective Date/time seen: 09/12/20 10:40 Letty Irene is a 65 year old female with a past medical history Dementia, Diabetes, GERD, HLD, HTN who had sigmoid colon resection done for her localized sigmoid colon adenocarcinoma, recently diagnosed in 2020. She also had other polyps which were removed with colonoscopy. she had intermittent bloody stool and had colonoscopy done as a screening test. Patient stated that she is feeling better today. She said that the nausea and vomiting is getting better. She also stated that the abdominal pain is also better and rated her pain at a 5/10. She admitted to having gas and a BM yesterday which was to her surprise. She still has a decreased appetite and has not really been eating as much. Patient did deny chest pain, shortness of breath, constipation, diarrhea, urinary dysfunction, pain or burning with urinating, headache, confusion, falls, syncope, numbness and tingling.Talked to the patient about movement and getting active. She said that she just got back to bed and had been sitting in the chair for most of the morning. She also stated that she has been walking to the bathroom and was cleaned up in ther
--- NOTE | 2020-09-12 11:40 | PM.IMPN ---
Progress Note: A&P Assessment and Plan (1) Malignant neoplasm of sigmoid colon: Code(s): C18.7 - Malignant neoplasm of sigmoid colon Status: Chronic Assessment and Plan: sigmoid adenocarcinoma: limited to colon. s/p sigmoid colectomy per gen surgery. regular surveillance as per guidelines Bowel sounds are absent at this time colon polyps: found in routine colonoscopy. s/p polypectomy. follow up with repeat colonoscopy as per schedule. Managed by general surgery Antiemetics and pain control per surgery DVT prophylaxis Lovenox Will add Reglan 10mg IV Q6hr PRN Farley should come out Diet low fiber and advanced per surgery (2) Essential (primary) hypertension: Code(s): I10 - Essential (primary) hypertension Status: Chronic Assessment and Plan: Current blood pressure is 156/74 Lisinopril 20 mg p.o. daily Trend blood pressures Adjust medications as needed (3) Diabetes: Qualifiers: Diabetes mellitus type: type 2 Diabetes mellitus ad terminal makeup operator insulin use: without penitentiary use Diabetes mellitus complication status: without complication Qualified Code(s): E11.9 - Type 2 diabetes mellitus without complications Code(s): E11.9 - Type 2 diabetes mellitus without complications Status: Chronic Assessment and Plan: Continue home metformin 500mg PO daily Accu check AC/HS Sliding scale Adjust medications as needed (4) Spinal stenosis, lumbar region with neurogenic claudication: Code(s): M48.062 - Spinal stenosis, lumbar region with neurogenic claudication Status: Acute Assessment and Plan: lumbar radiculopathy PRN pain medications are ordered (5) Hypothyroidism (acquired): Code(s): E03.9 - Hypothyroidism, unspecified Status: Acute Assessment and Plan: Continue home levothyroxine 88 meq p.o. daily (6) Hyperlipidemia: Qualifiers: Hyperlipidemia type: unspecified Qualified Code(s): E78.5 - Hyperlipidemia, unspecified Code(s): E78.5 - Hyperlipidemia, unspecified Status: Acute Assessment and Plan: Continue home atorvastatin 10 mg at bedtime Additional Plan Thanks for the consultation. we will follow along with you. Time Spent With Patient Time with patient: 15 - 25 minutes Subjective Date/time seen: 09/12/20 10:40 Letty Irene is a 65 year old female with a past medical history Dementia, Diabetes, GERD, HLD, HTN who had sigmoid colon resection done for her localized sigmoid colon adenocarcinoma, recently diagnosed in 2020. She also had other polyps which were removed with colonoscopy. she had intermittent bloody stool and had colonoscopy done as a screening test. Patient stated that she is feeling better today. She said that the nausea and vomiting is getting better. She also stated that the abdominal pain is also better and rated her pain at a 5/10. She admitted to having gas and a BM yesterday which was to her surprise. She still has a decreased appetite and has not really been eating as much. Patient did deny chest pain, shortness of breath, constipation, diarrhea, urinary dysfunction, pain or burning with urinating, headache, confusion, falls, syncope, numbness and tingling.Talked to the patient about movement and getting active. She said that she just got back to bed and had been sitting in the chair for most of the morning. She also stated that she has been walking to the bathroom and was cleaned up in there last night. It was also noted that she has a blister on her incision. Review of Systems Review of Systems: All systems reviewed & are unremarkable except as noted in HPI and below Exam Const: General: cooperative, healthy appearing, no acute distress, well developed, alert, awake, ill appearing and uncomfortable Nutritional Appearance: well nourished Orientation/consciousness: patient oriented x3 Limitations: no
--- NOTE | 2020-09-12 11:45 | PM.PNGS ---
Progress Note: A&P Assessment and Plan (1) Malignant neoplasm of sigmoid colon: Code(s): C18.7 - Malignant neoplasm of sigmoid colon Status: Chronic Assessment and Plan: Tolerating diet and bowels moving. Continue increasing activity. (2) Acute renal failure with oliguria: Code(s): N17.9 - Acute kidney failure, unspecified; R34 - Anuria and oliguria Status: Acute Assessment and Plan: Creatinine slightly improved at 1.3 this morning. Urine output improving and tolerating diet. Will remove Farley and discontinue IV fluids. (3) BMI 35.0-35.9,adult: Code(s): Z68.35 - Body mass index [BMI] 35.0-35.9, adult Status: Chronic (4) Essential (primary) hypertension: Code(s): I10 - Essential (primary) hypertension Status: Chronic Subjective Subjective Date/Time Seen: 09/12/20 11:45 Interval history: Urine output improving. Bowels moving. Tolerating solid diet. Exam GI: Inspection: incision (Incisions dry and intact) GI Palp: Yes Soft to palpation and Yes Tenderness to palpation present (GI) (Incisional) Auscultation: normal bowel sounds Objective Data Vital Signs Vital Signs: Vital Signs - 24 hr 09/11/20 14:00 09/11/20 20:25 09/11/20 22:00 Temperature 37.2 C 36.8 C Pulse Rate 97 70 92 Respiratory Rate 16 16 18 Blood Pressure 155/75 H 152/87 H Pulse Oximetry 94 94 96 09/12/20 06:00 Temperature 37.1 C Pulse Rate 80 Respiratory Rate 18 Blood Pressure 156/74 H Pulse Oximetry 96 Intake/Output Intake/Output: Intake & Output 09/09/20 09/10/20 09/11/20 09/12/20 23:59 23:59 23:59 23:59 Intake Total 150 5810 2390 2530 Output Total 110 1100 1150 650 Balance 40 4710 1240 1880 Meds/Results Medications: Active Medications Generic Name Dose Route Start Last Admin Trade Name Freq PRN Reason Stop Dose Admin Acetaminophen 500 mg 09/09/20 17:16 Acetaminophen 500 Mg Tablet PO Q6H PRN Mild Pain (1-3) or Fever Hydrocodone Bitart/Acetaminophen 1 tab 09/09/20 17:16 09/12/20 10:11 Hydrocodone/Acetaminophen (*Crx) 5-325 Mg Tablet PO 1 tab Q4H PRN Administration Pain Rated 4-6 Hydrocodone Bitart/Acetaminophen 1 tab 09/09/20 17:16 Hydrocodone/Acetaminophen (*Crx) 7.5-325 Mg Tablet PO Q4H PRN Pain Rated 7-10 Alvimopan 12 mg 09/10/20 21:00 09/12/20 08:11 Alvimopan 12 Mg Capsule PO 09/17/20 21:01 12 mg Q12HR ZAC Administration Atorvastatin Calcium 10 mg 09/09/20 21:00 09/11/20 20:42 Atorvastatin 10 Mg Tablet BY MOUTH 10 mg HS ZAC Administration Dextrose 12.5 gm 09/09/20 17:16 Dextrose 50% 25 Gm/50 Ml Syringe IV PUSH PRN PRN Hypoglycemia Protocol Enoxaparin Sodium 40 mg 09/10/20 09:00 09/12/20 08:12 Enoxaparin 40 Mg/0.4 Ml Syringe SUB-Q 40 mg DAILY ZAC Administration Glucagon 1 mg 09/09/20 17:16 Glucagon For Inj 1 Mg Vial IM PRN PRN Hypoglycemia Protocol Glucose 15 gm 09/09/20 17:16 Glucose Oral Gel 15 Gm Of Glucse In 37.5 Gm Tube PO PRN PRN Hypoglycemia Protocol Dextrose 1,000 mls @ 100 mls/hr 09/09/20 17:16 Dextrose 5% 1,000 Ml IVPB PRN PRN Hypoglycemia Protocol Insulin Aspart 4 - 8 units 09/09/20 17:16 09/12/20 09:52 Insulin Aspart (*Bkc) 100 Units/Ml SUB-Q Not Given TIDWM ZAC Protocol Levothyroxine Sodium 88 mcg 09/10/20 06:30 09/12/20 05:21 Levothyroxine Sodium 88 Mcg Tablet PO 88 mcg DAILY@0630 ZAC Administration Lisinopril 20 mg 09/10/20 09:00 09/12/20 08:11 Lisinopril 20 Mg Tablet PO 20 mg DAILY ZAC Administration Metformin HCl 500 mg 09/09/20 18:00 09/11/20 18:02 Metformin Hcl Xr 500 Mg Tab.Sr.24h PO 500 mg QPM ZAC Administration Metoclopramide HCl 10 mg 09/11/20 17:26 Metoclopramide Hcl Inj 10 Mg/2 Ml Vial IV PUSH Q6HR PRN nausea Morphine Sulfate 1 mg 09/09/20 17:16 09/10/20 20:32 Morphine Sulfate (*Crx)
[2020-09-12 12:36] LABS: Glucose Point of Care 80 mg/dl (65-105)
[2020-09-12 14:00] VITALS: BP 152/72; PULSE 88; RESP 16; TEMP 36.1; O2SAT 97
[2020-09-12] MEDS: METOCLOPRAMIDE HCL INJ 10 MG/2 ML VIAL IV PUSH (14:35)
[2020-09-12] MEDS: metFORMIN HCL XR 500 MG TAB.SR.24H PO (18:32)
[2020-09-12 18:43] LABS: Glucose Point of Care 95 mg/dl (65-105)
[2020-09-12] MEDS: ATORVASTATIN 10 MG TABLET BY MOUTH (20:06)
[2020-09-12] MEDS: MECLIZINE HCL 25 MG TABLET PO (20:12)
[2020-09-12 20:17] LABS: Glucose Point of Care 119 mg/dl (65-105)
[2020-09-12 22:00] VITALS: BP 159/70; PULSE 88; RESP 20; TEMP 36.9; O2SAT 98
[2020-09-13] MEDS: MECLIZINE HCL 25 MG TABLET PO ×3 (01:56→15:07)
[2020-09-13 05:42] LABS: Hemoglobin 10.8 g/dL (12.0-15.0); Mean Corpuscular HGB Conc 33.8 g/dl (32-36); Mean Corpuscular Hemoglobin 29.4 pg (26-34); Mean Corpuscular Volume 87.2 fl (80-100); Mean Platelet Volume 10.3 fl (7.4-10.4); Platelet Count Result 214 k/mm3 (150-375); Red Blood Count 3.67 M/mm3 (4.2-5.4); Red Cell Distribution Width 12.8 % (11.5-14.5); White Blood Count 14.3 K/mm3 (4.5-10.0)
[2020-09-13 05:54] LABS: Anion Gap 7 mmol/L (8-16); Blood Urea Nitrogen 12 mg/dL (7-17); Calcium 8.3 mg/dL (8.4-10.2); Carbon Dioxide 21 mmol/L (22-30); Chloride 106 mmol/L (98-107); Estimated CRCL calculation 39 ml/min; Estimated Glomerular Filt Rate 45; Glucose 104 mg/dL (65-105); Potassium 4.1 mmol/L (3.4-5.0); Sodium 134 mmol/L (137-145)
[2020-09-13] MEDS: HYDROcodone/acetaminophen (*CRX) 5-325 MG TABLET 1 TAB PO ×2 (05:56→17:09)
[2020-09-13] MEDS: LEVOTHYROXINE SODIUM 88 MCG TABLET PO (05:58)
[2020-09-13 06:00] VITALS: BP 176/77; PULSE 91; RESP 18; TEMP 36.8; O2SAT 96
--- NOTE | 2020-09-13 08:13 | P.PNIM_ITS ---
Progress Note: A&P Assessment and Plan (1) Malignant neoplasm of sigmoid colon: Code(s): C18.7 - Malignant neoplasm of sigmoid colon Status: Chronic Assessment and Plan: * sigmoid adenocarcinoma: limited to colon. * s/p sigmoid colectomy per gen surgery. * regular surveillance as per guidelines * Bowel sounds are absent at this time * colon polyps: found in routine colonoscopy. * s/p polypectomy. * follow up with repeat colonoscopy as per schedule. * Managed by general surgery * Antiemetics and pain control per surgery * DVT prophylaxis Lovenox * Will add Reglan 10mg IV Q6hr PRN * Farley should come out * Diet low fiber and advanced per surgery (2) Essential (primary) hypertension: Code(s): I10 - Essential (primary) hypertension Status: Chronic Assessment and Plan: * Current blood pressure is 176/77 * Lisinopril 20 mg p.o. daily * Received Bumex per surgery * Trend blood pressures * Adjust medications as needed (3) Diabetes: Qualifiers: Diabetes mellitus complication status: without complication Diabetes mellitus extermination supervisor insulin use: without extermination supervisor use Diabetes mellitus type: type 2 Qualified Code(s): E11.9 - Type 2 diabetes mellitus without complications Code(s): E11.9 - Type 2 diabetes mellitus without complications Status: Chronic Assessment and Plan: * Continue home metformin 500mg PO daily * Accu check AC/HS * Sliding scale * Adjust medications as needed (4) Spinal stenosis, lumbar region with neurogenic claudication: Code(s): M48.062 - Spinal stenosis, lumbar region with neurogenic claudication Status: Acute Assessment and Plan: * lumbar radiculopathy * PRN pain medications are ordered (5) Hypothyroidism (acquired): Code(s): E03.9 - Hypothyroidism, unspecified Status: Acute Assessment and Plan: * Continue home levothyroxine 88 meq p.o. daily (6) Hyperlipidemia: Qualifiers: Hyperlipidemia type: unspecified Qualified Code(s): E78.5 - Hyperlipidemia, unspecified Code(s): E78.5 - Hyperlipidemia, unspecified Status: Acute Assessment and Plan: * Continue home atorvastatin 10 mg at bedtime Additional Plan Thanks for the consultation. we will follow along with you. Subjective Date/time seen: 09/13/20 07:40 Letty Irene is a 65 year old female with a past medical history Dementia, Diabetes, GERD, HLD, HTN who had sigmoid colon resection done by Dr. Dixon on 09/09/2020 for her localized sigmoid colon adenocarcinoma, recently diagnosed in 2020. Patient was sitting in the chair eating breakfast when I saw her today. She stated that she is doing a lot better. She stated that she does get a bit dizzy with activity and stated that the condition was apart of her vertigo. The nausea and vomiting is also getting better. Her appetite is slowly progressing and she is able to eat more. She has had a BM about 2 days ago and she is also passing gas. Miguelito was taken out yesterday and she has been going to the bathroom. Patient denies chest pain, shortness of breath, vomiting, lightheadedness, syncope, falls, numbness and tingling, urinary dysfunction, or increased swelling. Patient did state that she is moving around but with support from a master steam yacht. Patient stated that she doesn't want to go too far from the dizziness. She also stated that she does not like the supplements, and does not drink them. Did notice that the left leg is a bit more swolle
--- NOTE | 2020-09-13 08:13 | PM.IMPN ---
Progress Note: A&P Assessment and Plan (1) Malignant neoplasm of sigmoid colon: Code(s): C18.7 - Malignant neoplasm of sigmoid colon Status: Chronic Assessment and Plan: sigmoid adenocarcinoma: limited to colon. s/p sigmoid colectomy per gen surgery. regular surveillance as per guidelines Bowel sounds are absent at this time colon polyps: found in routine colonoscopy. s/p polypectomy. follow up with repeat colonoscopy as per schedule. Managed by general surgery Antiemetics and pain control per surgery DVT prophylaxis Lovenox Will add Reglan 10mg IV Q6hr PRN Farley should come out Diet low fiber and advanced per surgery (2) Essential (primary) hypertension: Code(s): I10 - Essential (primary) hypertension Status: Chronic Assessment and Plan: Current blood pressure is 176/77 Lisinopril 20 mg p.o. daily Received Bumex per surgery Trend blood pressures Adjust medications as needed (3) Diabetes: Qualifiers: Diabetes mellitus complication status: without complication Diabetes mellitus terminal block assembler insulin use: without mcfp use Diabetes mellitus type: type 2 Qualified Code(s): E11.9 - Type 2 diabetes mellitus without complications Code(s): E11.9 - Type 2 diabetes mellitus without complications Status: Chronic Assessment and Plan: Continue home metformin 500mg PO daily Accu check AC/HS Sliding scale Adjust medications as needed (4) Spinal stenosis, lumbar region with neurogenic claudication: Code(s): M48.062 - Spinal stenosis, lumbar region with neurogenic claudication Status: Acute Assessment and Plan: lumbar radiculopathy PRN pain medications are ordered (5) Hypothyroidism (acquired): Code(s): E03.9 - Hypothyroidism, unspecified Status: Acute Assessment and Plan: Continue home levothyroxine 88 meq p.o. daily (6) Hyperlipidemia: Qualifiers: Hyperlipidemia type: unspecified Qualified Code(s): E78.5 - Hyperlipidemia, unspecified Code(s): E78.5 - Hyperlipidemia, unspecified Status: Acute Assessment and Plan: Continue home atorvastatin 10 mg at bedtime Additional Plan Thanks for the consultation. we will follow along with you. Subjective Date/time seen: 09/13/20 07:40 Letty Irene is a 65 year old female with a past medical history Dementia, Diabetes, GERD, HLD, HTN who had sigmoid colon resection done by Dr. Dixon on 09/09/2020 for her localized sigmoid colon adenocarcinoma, recently diagnosed in 2020. Patient was sitting in the chair eating breakfast when I saw her today. She stated that she is doing a lot better. She stated that she does get a bit dizzy with activity and stated that the condition was apart of her vertigo. The nausea and vomiting is also getting better. Her appetite is slowly progressing and she is able to eat more. She has had a BM about 2 days ago and she is also passing gas. Miguelito was taken out yesterday and she has been going to the bathroom. Patient denies chest pain, shortness of breath, vomiting, lightheadedness, syncope, falls, numbness and tingling, urinary dysfunction, or increased swelling. Patient did state that she is moving around but with support from a team guide. Patient stated that she doesn't want to go too far from the dizziness. She also stated that she does not like the supplements, and does not drink them. Did notice that the left leg is a bit more swollen than the left. Review of Systems Review of Systems: All systems reviewed & are unremarkable except as noted in HPI and below Exam Const: General: cooperative, healthy appearing, no acute distress, well developed, alert, awake, ill appearing and uncomfortable Nutritional Appearance: well nourished Orientation/consciousness: patient oriented x3 Limitations: no limitations HENMT: Head: normal to inspection Ears: hea
[2020-09-13 08:19] LABS: Glucose Point of Care 112 mg/dl (65-105)
[2020-09-13] MEDS: lisinopriL 20 MG TABLET PO (08:20)
[2020-09-13] MEDS: PANTOPRAZOLE 40 MG TABLET PO (08:20)
[2020-09-13] MEDS: ENOXAPARIN 40 MG/0.4 ML SYRINGE SUB-Q (08:20)
[2020-09-13] MEDS: ALVIMOPAN 12 MG CAPSULE PO ×2 (08:20→20:16)
[2020-09-13 10:11] VITALS: O2SAT 93
[2020-09-13 11:52] LABS: Glucose Point of Care 99 mg/dl (65-105)
--- NOTE | 2020-09-13 12:09 | PM.PNGS ---
Progress Note: A&P Assessment and Plan (1) Malignant neoplasm of sigmoid colon: Code(s): C18.7 - Malignant neoplasm of sigmoid colon Status: Chronic Assessment and Plan: Continues to tolerate a diet and bowels are moving. WBC slightly up to 14,000 today. She is afebrile. Incisions look good with no signs of infection. No other specific complaints. Will give 1 dose of IV Bumex today. Repeat labs again tomorrow morning to trend white blood cell count. Encouraged to increase activity. PT/OT ordered. (2) Acute renal failure with oliguria: Code(s): N17.9 - Acute kidney failure, unspecified; R34 - Anuria and oliguria Status: Acute Assessment and Plan: Creatinine continues to slowly improve at 1.2 this morning. Urine output continues to improve as well. (3) BMI 35.0-35.9,adult: Code(s): Z68.35 - Body mass index [BMI] 35.0-35.9, adult Status: Chronic (4) Essential (primary) hypertension: Code(s): I10 - Essential (primary) hypertension Status: Chronic Additional Plan Discussed plan of care with Dr. Dixon. Subjective Subjective Date/Time Seen: 09/13/20 12:09 Post Op day: 4 (SANA sigmoidectomy, mobilization splenic flexure) Patient reports: no new complaints, pain is less, tolerating a regular diet, voiding w/o difficulty, flatus, afebrile and other (dizziness improved) Interval history: Patient feeling better today. Reports her main complaint was the dizziness she has been experiencing that is typical of her vertigo. This has improved with the meclizine. Reports lots of flatus. Last bowel movement was yesterday evening. Tolerating her diet without any nausea, vomiting, or significant bloating. No other complaints. Review of Systems Review of Systems: All systems reviewed & are unremarkable except as noted in HPI and below Constitutional: Constitutional: Reports as per HPI, Reports no additional constitutional complaints, Denies chills and Denies fever(s) Cardiovascular: Cardiovascular: Reports no additional cardiovascular complaints, Denies chest pain and Denies leg edema Respiratory: Respiratory: Reports no additional respiratory complaints, Denies cough and Denies dyspnea Gastrointestinal: Gastrointestinal: Reports as per HPI and Reports no additional gastrointestinal complaints Neurologic: Reports system reviewed and no additional complaints, except as documented, Denies Abnormal speech present and Denies focal weakness Exam Const: General: comfortable, no acute distress, alert and awake Orientation/consciousness: patient oriented x3 Resp: Effort & Inspection: normal respiratory effort Auscultation: clear to auscultation bilaterally Cardio: Rate: regular rate Rhythm: regular rhythm GI: Inspection: non-distended GI Palp: Yes Soft to palpation and Yes Tenderness to palpation present (GI) (incisional) Auscultation: normal bowel sounds Other: Abdominal incisions clean and dry, small bullae near umbilicus. No erythema, swelling, or signs of infection. Minimal ecchymosis at incisions. Skin: General skin exam: normal color Neuro: General: moves all extremities and no focal motor deficits Extrem: General: no clubbing, cyanosis or edema and no calf tenderness Psych: Mental Status: mental status grossly normal Insight: Good insight present (Psych) Judgement: Good judgement present (Psych) Objective Data Vital Signs Vital Signs: Vital Signs - 24 hr 09/12/20 14:00 09/12/20 22:00 09/13/20 06:00 Temperature 97.0 F L 98.4 F 98.2 F Pulse Rate 88 88 91 Respiratory Rate 16 20 18 Blood Pressure 152/72 H 159/70 H 176/77 H Pulse Oximetry 97 98 96 09/13/20 10:11 Temperature Pulse Rate Respiratory Rate Blood Pressure Pulse Oximetry 93 Intake/Output Intake/Output: Intake & Output 09/10/20 09/11/20 09/12/20 09/13/20 23:59 23:59 23:59 23:59 Intake Total 5810 2390 2900 500 Output Total 1100 1150 3150 800 Balance 4710 1240 -250 -300 Med
[2020-09-13] MEDS: BUMETANIDE INJ 1 MG/4 ML VIAL 2 MG IV PUSH (13:12)
[2020-09-13 14:00] VITALS: BP 152/72; PULSE 84; RESP 16; TEMP 36.5; O2SAT 94
[2020-09-13 16:56] LABS: Glucose Point of Care 94 mg/dl (65-105)
[2020-09-13] MEDS: metFORMIN HCL XR 500 MG TAB.SR.24H PO (17:07)
[2020-09-13 20:00] VITALS: PULSE 88; RESP 18; O2SAT 95
[2020-09-13] MEDS: ATORVASTATIN 10 MG TABLET BY MOUTH (20:16)
[2020-09-13 20:55] VITALS: BP 152/61; PULSE 88; RESP 18; TEMP 36.4; O2SAT 95
[2020-09-13 21:56] LABS: Glucose Point of Care 113 mg/dl (65-105)
[2020-09-14 05:33] LABS: Hematocrit 31.6 % (37.0-47.0); Hemoglobin 10.7 g/dL (12.0-15.0); Mean Corpuscular HGB Conc 33.9 g/dl (32-36); Mean Corpuscular Hemoglobin 29.2 pg (26-34); Mean Corpuscular Volume 86.3 fl (80-100); Platelet Count Result 235 k/mm3 (150-375); Red Blood Count 3.66 M/mm3 (4.2-5.4); Red Cell Distribution Width 12.9 % (11.5-14.5); White Blood Count 13.6 K/mm3 (4.5-10.0)
[2020-09-14 05:43] LABS: Anion Gap 9 mmol/L (8-16); Blood Urea Nitrogen 14 mg/dL (7-17); Calcium 8.5 mg/dL (8.4-10.2); Carbon Dioxide 26 mmol/L (22-30); Chloride 101 mmol/L (98-107); Estimated CRCL calculation 36 ml/min; Estimated Glomerular Filt Rate 41; Glucose 99 mg/dL (65-105); Potassium 3.6 mmol/L (3.4-5.0); Sodium 136 mmol/L (137-145)
[2020-09-14 06:00] VITALS: BP 161/78; PULSE 88; RESP 16; TEMP 36.8; O2SAT 96
[2020-09-14 07:32] LABS: Basophils Percent Auto 0.3 % (0.2-1.2); Eosinophils Absolute Auto 0.3 K/mm3 (0-0.3); Eosinophils Percent Auto 2.3 % (0-4.4); Hematocrit 31.6 % (37.0-47.0); Hemoglobin 10.7 g/dL (12.0-15.0); Immature Granulocyte Absolute 0.24 K/mm3 (0.00-0.031); Immature Granulocyte Percent A 1.8 % (0-0.5); Lymphocytes Absolute Auto 1.45 K/mm3 (0.9-3.2); Lymphocytes Percent Auto 10.7 % (18.3-44.2); Mean Corpuscular HGB Conc 33.9 g/dl (32-36); Mean Corpuscular Hemoglobin 29.5 pg (26-34); Mean Corpuscular Volume 87.1 fl (80-100); Mean Platelet Volume 10.4 fl (7.4-10.4); Monocytes Percent Auto 7.7 % (2.6-8.5); Neutrophils Absolute Auto 10.4 K/mm3 (1.3-6.7); Neutrophils Percent Auto 77.2 % (45.5-73.1); Nucleated Red Blood Cells Perc 0.2 % (0.0-0.2); Platelet Count Result 240 k/mm3 (150-375); Red Blood Count 3.63 M/mm3 (4.2-5.4); Red Cell Distribution Width 12.9 % (11.5-14.5); White Blood Count 13.5 K/mm3 (4.5-10.0)
--- NOTE | 2020-09-14 07:33 | PM.PNGS ---
Progress Note: A&P Assessment and Plan (1) Malignant neoplasm of sigmoid colon: Code(s): C18.7 - Malignant neoplasm of sigmoid colon Status: Chronic Assessment and Plan: pathology showed no evidence of residual cancer. There was a benign polyp in the specimen. Lymph nodes were negative. Thirteen nodes were examined. Patient seems to be healing well after surgery. She has active bowel sounds and mild appropriate abdominal pain. She has been having bowel movements as well. White blood cell count is still a little elevated at 13,000 thousand but slightly lower than yesterday. Will recheck again tomorrow. Patient will get another dose of Bumex today for additional diuresis. We will ambulate and continue regular diabetic diet. If continues to do well, plan home tomorrow. (2) Dizziness, nonspecific: Code(s): R42 - Dizziness and giddiness Status: Acute Assessment and Plan: Gets this off and on as an outpatient. It usually lasts about 4 days. Will continue diuresis as I have seen this improve as fluid status improves. Plan home tomorrow if looking good as above. Subjective Subjective Date/Time Seen: 09/14/20 07:33 Post Op day: 5 Patient reports: no new complaints (No dizziness this morning but has had it off and on), pain is less, tolerating a regular diet, bowel movement, afebrile and other ( multiple trips to the bathroom last night to urinate) Review of Systems Review of Systems: All systems reviewed & are unremarkable except as noted in HPI and below Constitutional: Constitutional: Denies chills, Denies fever(s), Denies headache(s) and Denies poor appetite Cardiovascular: Cardiovascular: Denies chest pain and Denies dyspnea Respiratory: Respiratory: Denies cough and Denies dyspnea Gastrointestinal: Gastrointestinal: Reports as per HPI, Reports abdominal pain ( mild, relieved with [place]), Denies bloating, Denies GI cramping and Reports nausea ( only associated with the dizziness) Genitourinary: Genitourinary: Denies hematuria, Reports nocturia ( received Bumex yesterday), Denies dysuria and Denies pelvic pain Neurologic: Denies confusion and Denies headache(s) Exam Const: General: cooperative, comfortable, no acute distress, alert and awake; No confusion Nutritional Appearance: obese Orientation/consciousness: patient oriented x3 and No confusion GI: Inspection: non-distended, incision ( all incisions dry and healing well) and obesity GI Palp: Yes Soft to palpation, Yes Tenderness to palpation present (GI) ( appropriate mild tenderness mostly mid abdomen), No Guarding due to palpation present (GI), No Hernia present, No Palpable mass present and No Rebound tenderness present Auscultation: normal bowel sounds and normoactive bowel sounds Neuro: General: patient oriented x3, no focal motor deficits and No confusion Extrem: General: no calf tenderness and no edema Psych: Affect: normal affect Insight: Good insight present (Psych) Judgement: Good judgement present (Psych) Objective Data Vital Signs Vital Signs: Vital Signs - 24 hr 09/13/20 10:11 09/13/20 14:00 09/13/20 20:00 Temperature 36.5 C Pulse Rate 84 88 Respiratory Rate 16 18 Blood Pressure 152/72 H Pulse Oximetry 93 94 95 09/13/20 20:55 09/14/20 06:00 Temperature 36.4 C L 36.8 C Pulse Rate 88 88 Respiratory Rate 18 16 Blood Pressure 152/61 H 161/78 H Pulse Oximetry 95 96 Intake/Output Intake/Output: Intake & Output 09/11/20 09/12/20 09/13/20 09/14/20 23:59 23:59 23:59 23:59 Intake Total 2390 2900 990 200 Output Total 1150 3150 3200 Balance 1240 -250 -2210 200 diuresed over 2 L with dose of Bumex yesterday. Meds/Results Medications: Active Medications Generic Name Dose Route Start Last Admin Trade Name Freq PRN Reason Stop Dose Admin Acetaminophen 500 mg 09/09/20 17:16 Acetaminophen 500 Mg Tablet PO Q6H PRN Mild Pain (1-3) or Fever Hydrocodone Bitart/Acetamino
[2020-09-14] MEDS: LEVOTHYROXINE SODIUM 88 MCG TABLET PO (07:55)
[2020-09-14] MEDS: ENOXAPARIN 40 MG/0.4 ML SYRINGE SUB-Q (07:55)
[2020-09-14 08:12] LABS: Glucose Point of Care 97 mg/dl (65-105)
[2020-09-14] MEDS: BUMETANIDE INJ 2.5 MG/10 ML VIAL 2 MG IV PUSH (09:18)
[2020-09-14] MEDS: lisinopriL 20 MG TABLET PO (09:18)
[2020-09-14] MEDS: POTASSIUM CHLORIDE 20 MEQ TABLET.ER PO ×2 (09:18→16:55)
[2020-09-14] MEDS: PANTOPRAZOLE 40 MG TABLET PO (09:18)
[2020-09-14] MEDS: HYDROcodone/acetaminophen (*CRX) 5-325 MG TABLET 1 TAB PO ×2 (10:23→17:18)
[2020-09-14] MEDS: MECLIZINE HCL 25 MG TABLET PO (10:23)
[2020-09-14 11:43] LABS: Glucose Point of Care 102 mg/dl (65-105)
[2020-09-14 12:52] LABS: Add Urine Microscopic? NO; Appearance Urine Clear (Clear); Bilirubin Urine Negative (Negative); Blood Urine Negative (Negative); Color Urine Colorless (Yellow); Glucose Urine UA Negative (Negative); Ketones Urine Negative (Negative); Leukocyte Esterase Ur Negative LEU/UL (Negative); Nitrate Urine Negative (Negative); Protein Urine Negative (Negative); Specific Grav Ur 1.006 (1.001-1.035); Urobilinogen Urine Negative mg/dL (<2.0)
[2020-09-14 14:00] VITALS: BP 169/77; PULSE 90; RESP 16; TEMP 36.4; O2SAT 94
--- NOTE | 2020-09-14 15:18 | PM.IMPN ---
Progress Note: A&P Assessment and Plan (1) Leukocytosis: Code(s): D72.829 - Elevated white blood cell count, unspecified Status: Acute Assessment and Plan: Patient has had leukocytosis since arrival. The patient has been doing well postop, other than some dizziness. Denies any urinary symptoms, respiratory symptoms at this time. Patient did have some blood noted to her urine so urinalysis was completed and was completely normal with no signs of infection No need for further workup at this time, will continue to check CBC in the morning, Monitor the patient's symptoms. May need CBC as an outpatient to be completed postop. (2) Dizziness, nonspecific: Code(s): R42 - Dizziness and giddiness Status: Acute Assessment and Plan: Patient's dizziness is improving, only mild this morning. Will schedule low-dose meclizine 6.25 mg TID and PRN if needed. Will discharge on low dose to continue taking as needed. (3) Malignant neoplasm of sigmoid colon: Code(s): C18.7 - Malignant neoplasm of sigmoid colon Status: Chronic Assessment and Plan: sigmoid adenocarcinoma: limited to colon. s/p sigmoid colectomy per gen surgery on 09/09/20. Per Surgery, Antiemetics and pain control, DVT prophylaxis Lovenox, Diet Discharge per surgery (4) Essential (primary) hypertension: Code(s): I10 - Essential (primary) hypertension Status: Chronic Assessment and Plan: Blood pressure was 161/78 this morning, slightly elevated. Continue Lisinopril 20 mg p.o. daily She was thought to be fluid overloaded and received IV Bumex per surgery 09/13 and this morning 09/14. Continue monitoring BP. Make adjustments as needed (5) Diabetes: Qualifiers: Diabetes mellitus type: type 2 Diabetes mellitus jail insulin use: without client technical support associate use Diabetes mellitus complication status: without complication Qualified Code(s): E11.9 - Type 2 diabetes mellitus without complications Code(s): E11.9 - Type 2 diabetes mellitus without complications Status: Chronic Assessment and Plan: Continue home metformin 500mg PO daily Accu check AC/HS. Sliding scale. Adjust medications as needed (6) Spinal stenosis, lumbar region with neurogenic claudication: Code(s): M48.062 - Spinal stenosis, lumbar region with neurogenic claudication Status: Acute Assessment and Plan: lumbar radiculopathy. PRN pain medications are ordered. Stable at this time. Continue PT/OT (7) Hypothyroidism (acquired): Code(s): E03.9 - Hypothyroidism, unspecified Status: Acute Assessment and Plan: Continue home levothyroxine 88 meq p.o. daily (8) Hyperlipidemia: Qualifiers: Hyperlipidemia type: unspecified Qualified Code(s): E78.5 - Hyperlipidemia, unspecified Code(s): E78.5 - Hyperlipidemia, unspecified Status: Acute Assessment and Plan: Continue home atorvastatin 10 mg at bedtime Additional Plan Time Spent With Patient Time with patient: 25 - 35 minutes Subjective Date/time seen: 09/14/20 15:18 Interval history: Date of service 09/14/2020: Patient reports feeling well today other than some slight dizziness and nausea this morning. She was still able to eat her breakfast without any vomiting. She has not had any more episodes of dizziness today. She still has some post operative abdominal discomfort, but passing gas and having bowel movements. She did urinate earlier with therapy and noticed a speck of blood. She did not have any blood when she wiped vagina. This is the 1st time anything like this happen before. Denies any fevers, chills, chest pain, shortness of breath, cough, leg swelling, calf pain, frequent urination, foul odor to urine, dysuria or any other symptoms at this time. Review of Systems Review of Systems: All systems reviewed & are unremarkable except as noted in HPI and below
[2020-09-14 16:52] LABS: Glucose Point of Care 94 mg/dl (65-105)
[2020-09-14] MEDS: metFORMIN HCL XR 500 MG TAB.SR.24H PO (16:58)
[2020-09-14] MEDS: MECLIZINE HCL 6.25 MG TABLET PO (17:16)
[2020-09-14] MEDS: ATORVASTATIN 10 MG TABLET BY MOUTH (20:19)
[2020-09-14 21:09] LABS: Glucose Point of Care 112 mg/dl (65-105)
[2020-09-14 22:00] VITALS: BP 155/75; PULSE 88; RESP 16; TEMP 36.2; O2SAT 95
[2020-09-15] VITALS (11 sets, daily range): BP systolic 126–168; BP diastolic 50–85; PULSE 84–95; RESP 16–22; TEMP 36.6–37.2; O2SAT 93–100
[2020-09-15] MEDS: HYDROcodone/acetaminophen (*CRX) 5-325 MG TABLET 1 TAB PO ×3 (01:23→21:53)
[2020-09-15 05:39] LABS: Hemoglobin 12.1 g/dL (12.0-15.0); Mean Corpuscular HGB Conc 33.6 g/dl (32-36); Mean Corpuscular Hemoglobin 29.9 pg (26-34); Mean Corpuscular Volume 88.9 fl (80-100); Platelet Count Result 252 k/mm3 (150-375); Red Blood Count 4.05 M/mm3 (4.2-5.4); Red Cell Distribution Width 12.9 % (11.5-14.5); White Blood Count 17.5 K/mm3 (4.5-10.0)
[2020-09-15 05:51] LABS: Anion Gap 10 mmol/L (8-16); Blood Urea Nitrogen 16 mg/dL (7-17); Carbon Dioxide 30 mmol/L (22-30); Chloride 96 mmol/L (98-107); Estimated CRCL calculation 36 ml/min; Estimated Glomerular Filt Rate 41; Glucose 123 mg/dL (65-105); Potassium 4.1 mmol/L (3.4-5.0); Sodium 136 mmol/L (137-145)
[2020-09-15] MEDS: LEVOTHYROXINE SODIUM 88 MCG TABLET PO (05:53)
--- NOTE | 2020-09-15 07:39 | PC.NURSE ---
Patient transported to CT and XR per wheelchair.
[2020-09-15 08:11] LABS: Glucose Point of Care 111 mg/dl (65-105)
[2020-09-15] MEDS: POTASSIUM CHLORIDE 20 MEQ TABLET.ER PO ×2 (08:17→18:25)
[2020-09-15] MEDS: MECLIZINE HCL 6.25 MG TABLET PO ×2 (08:17→18:25)
[2020-09-15] MEDS: ENOXAPARIN 40 MG/0.4 ML SYRINGE SUB-Q (08:17)
[2020-09-15] MEDS: PANTOPRAZOLE 40 MG TABLET PO (08:17)
[2020-09-15] MEDS: lisinopriL 20 MG TABLET PO (08:17)
--- NOTE | 2020-09-15 11:53 | PM.IMPN ---
Progress Note: A&P Assessment and Plan (1) Leukocytosis: Code(s): D72.829 - Elevated white blood cell count, unspecified Status: Acute Assessment and Plan: Patient has had leukocytosis since arrival. The patient has been doing well postop, other than some dizziness. Denies any urinary symptoms, respiratory symptoms at this time. Patient did have some blood noted to her urine 09/14/20-but urinalysis was completely normal. No signs of infection Patient leukocytosis became worse this morning, 17,500. Surgery ordered CT Abd/Pelvis since she is post-op and I ordered CXR. She denies any new or worsening symptoms at this time. Pending results. May need CBC as an outpatient to be completed postop. (2) PAL (acute kidney injury): Code(s): N17.9 - Acute kidney failure, unspecified Status: Acute Assessment and Plan: Cr 08/30/20 was normal at 0.7. Cr after surgery on 09/09/20 has remained elevated at 1.3, normal BUN. Patient has had normal urine output. UA was normal yesterday no signs of infection, or other abnormality CT Abd/Pelvis to be completed due to leukocytosis, pending results. Continue monitoring. Consider Nephrology consultation (3) Dizziness, nonspecific: Code(s): R42 - Dizziness and giddiness Status: Acute Assessment and Plan: Patient's dizziness is improving, only mild this morning. Will schedule low-dose meclizine 6.25 mg TID and PRN if needed. Will discharge on low dose to continue taking as needed. (4) Malignant neoplasm of sigmoid colon: Code(s): C18.7 - Malignant neoplasm of sigmoid colon Status: Chronic Assessment and Plan: sigmoid adenocarcinoma: limited to colon. s/p sigmoid colectomy per gen surgery on 09/09/20. Per Surgery, Antiemetics and pain control, DVT prophylaxis Lovenox, Diet Discharge per surgery (5) Essential (primary) hypertension: Code(s): I10 - Essential (primary) hypertension Status: Chronic Assessment and Plan: Blood pressure was 168/71 this morning, slightly elevated. Continue Lisinopril 20 mg p.o. daily She was thought to be fluid overloaded and received IV Bumex per surgery 09/13 and 09/14. Continue monitoring BP. Make adjustments as needed (6) Diabetes: Qualifiers: Diabetes mellitus type: type 2 Diabetes mellitus terminal operator insulin use: without halfway use Diabetes mellitus complication status: without complication Qualified Code(s): E11.9 - Type 2 diabetes mellitus without complications Code(s): E11.9 - Type 2 diabetes mellitus without complications Status: Chronic Assessment and Plan: Continue home metformin 500mg PO daily Accu check AC/HS. Sliding scale. Adjust medications as needed (7) Spinal stenosis, lumbar region with neurogenic claudication: Code(s): M48.062 - Spinal stenosis, lumbar region with neurogenic claudication Status: Acute Assessment and Plan: lumbar radiculopathy. PRN pain medications are ordered. Stable at this time. Continue PT/OT (8) Hypothyroidism (acquired): Code(s): E03.9 - Hypothyroidism, unspecified Status: Acute Assessment and Plan: Continue home levothyroxine 88 meq p.o. daily (9) Hyperlipidemia: Qualifiers: Hyperlipidemia type: unspecified Qualified Code(s): E78.5 - Hyperlipidemia, unspecified Code(s): E78.5 - Hyperlipidemia, unspecified Status: Acute Assessment and Plan: Continue home atorvastatin 10 mg at bedtime Additional Plan Time Spent With Patient Time with patient: 25 - 35 minutes Subjective Date/time seen: 09/15/20 11:53 Interval history: Date of service 09/15/2020: Patient reports feeling well today, she denies any fevers, chills, urinary symptoms or worsening abdominal pain overnight. Patient did have some slight dizziness this morning, but it has resolved. Denies any nausea, vomiting. She still eating a
[2020-09-15 12:09] LABS: Glucose Point of Care 116 mg/dl (65-105)
[2020-09-15] MEDS: MORPHINE SULFATE (*CRX) 2 MG/ML INJ 1 MG IV PUSH (13:05)
--- NOTE | 2020-09-15 13:31 | PM.PNGS ---
Progress Note: A&P Assessment and Plan (1) Acute left flank pain: Code(s): R10.9 - Unspecified abdominal pain Status: Acute Assessment and Plan: left flank pain developed about 2:00 a.m. this morning. Her white blood cell count was somewhat high at 13,000 thousand but increased today to 17,500. her creatinine has been elevated since surgery and remains about 1.3. CT scan abdomen and pelvis suggests mid ureteral obstruction either from injury or other source. Dr. Garcia was consulted and will proceed with cystoscopy as well as retrograde ureterogram today. I did discuss this with Dr. Garcia and reviewed the CT scan with the radiologist Dr. Livingston. I discussed the findings with the patient and the possible causes. If there is a ureteral injury, plan will be per Dr. Garcia regarding repair or stenting. Nephrostomy tube also a possibility. (2) Leukocytosis: Qualifiers: Leukocytosis type: unspecified Qualified Code(s): D72.829 - Elevated white blood cell count, unspecified Code(s): D72.829 - Elevated white blood cell count, unspecified Status: Acute Assessment and Plan: Following leukocytosis of [id number] increased today as noted above. (3) Dizziness, nonspecific: Code(s): R42 - Dizziness and giddiness Status: Acute Assessment and Plan: No complaints of dizziness or vertigo today. (4) Malignant neoplasm of sigmoid colon: Code(s): C18.7 - Malignant neoplasm of sigmoid colon Status: Chronic Assessment and Plan: Pathology showed no evidence of malignancy in the specimen. No lymph nodes were involved. Thirteen nodes were examined. 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 Subjective Subjective Date/Time Seen: 09/15/20 13:31 Post Op day: #6 Patient reports: tolerating a regular diet, bowel movement, afebrile and other ( patient started having left flank pain early this morning like about 2:00 a.m.) Review of Systems Review of Systems: All systems reviewed & are unremarkable except as noted in HPI and below Constitutional: Constitutional: Denies chills, Denies fever(s), Denies headache(s) and Denies poor appetite Cardiovascular: Cardiovascular: Denies chest pain and Denies dyspnea Respiratory: Respiratory: Denies cough and Denies dyspnea Gastrointestinal: Gastrointestinal: Reports as per HPI, Reports abdominal pain ( left flank pain as per HPI), Denies heartburn, Denies nausea and Denies vomiting Neurologic: Denies confusion and Denies headache(s) Exam Const: General: comfortable and no acute distress; No confusion Orientation/consciousness: patient oriented x3 and No confusion GI: Inspection: non-distended, incision ( all incisions healing well) and obesity GI Palp: Yes Soft to palpation, No Tenderness to palpation present (GI), No Guarding due to palpation present (GI) and No Rebound tenderness present Auscultation: normal bowel sounds Neuro: General: patient oriented x3, no focal motor deficits and No confusion Extrem: General: no calf tenderness and no edema Psych: Affect: normal affect Insight: Good insight present (Psych) Judgement: Good judgement present (Psych) Objective Data Vital Signs Vital Signs: Vital Signs - 24 hr 09/14/20 14:00 09/14/20 22:00 09/15/20 06:00 Temperature 36.4 C 36.2 C L 37.2 C Pulse Rate 90 88 84 Respiratory Rate 16 16 18 Blood Pressure 169/77 H 155/75 H 168/71 H Pulse Oximetry 94 95 96 Intake/Output Intake/Output: Intake & Output 09/12/20 09/13/20 09/14/20 09/15/20 23:59 23:59 23:59 23:59
--- NOTE | 2020-09-15 13:44 | WPDURCON ---
Assessment and Plan Assessment and plan (1) PAL (acute kidney injury): Code(s): N17.9 - Acute kidney failure, unspecified Status: Acute (2) Acute left flank pain: Code(s): R10.9 - Unspecified abdominal pain Status: Acute (3) Hydronephrosis: Code(s): N13.30 - Unspecified hydronephrosis Status: Acute Assessment and Plan: This is a very pleasant 65-year-old lady who is 6 days status post sigmoid colectomy. The patient has developed acute renal failure and left hydronephrosis- findings concerning for a left ureteral injury -I discussed with the patient and with Dr. Dixon. We will plan to take her today for a cystoscopy and left retrograde pyelogram with likely placement of a left ureteral stent. I explained that if we are unable to place a stent, a percutaneous nephrostomy tube will be required. If the patient has significant ureteral injury a reimplant may be required, however given the timing since her recent operation this may require to be performed in a delayed fashion if needed. -the risks of today's procedure were discussed with the patient. Risks including but not limited to infection, bleeding, pain, injury to surrounding structures, inability to place a stent, need for additional operations were discussed completion anesthesia were discussed. The patient agrees to proceed Urology Consult Note HPI Date Seen: 09/15/20 Requesting Physician: Everette Dixon MD Primary Care Provider: Flakito Breaux MD Consult Narrative Narrative: Letty Irene is a 65 year old female who underwent a sigmoidectomy on September 09, 2020. The patient subsequently has had an elevation of her creatinine, and has developed left sided flank pain. CT scan performed earlier today revealed left hydronephrosis and concern for possible ureteral injury. Urology was consulted to further evaluate the patient Currently the patient states that she has persistent left-sided pain. She denies nausea vomiting fevers or chills. Patient has expected abdominal tenderness over her incision. Review of Systems Review of Systems: All systems reviewed & are unremarkable except as noted in HPI and below PMFSH Past Medical History Medical History (Updated 09/15/20 @ 14:30 by Ziyad Garcia MD) Dementia Diabetes Essential (primary) hypertension GERD (gastroesophageal reflux disease) Hydronephrosis Hyperlipidemia Hypothyroidism (acquired) Pre-op exam Sigmoid polyp Surgical History Surgical History H/O rotator cuff surgery H/O tubal ligation History of appendectomy History of cholecystectomy Previous back surgery Family History Family History Father Hypertension Family history of malignant neoplasm of urinary bladder Mother Hypertension, Onset Age: 50 Heart attack Sibling Hypertension Family history of elevated blood lipids Family history of cardiovascular disease Malignant neoplasm of prostate Grandparent Heart disease Cancer Hypertension Social History Social History Smoking status: Former smoker Second hand tobacco smoke exposure: No Additional smoking assessment comments: STATES SOCIAL SMOKER/6MONTHS-1YR/QUIT 1972 Alcohol intake: never Substance use: never Substance use type: does not use Gender identity (if verbalized by the patient): Female Spiritual care concerns: No Meds Home Medications and Allergies Home Medications Medication Instructions Recorded Confirmed Type levothyroxine 88 mcg tablet 88 mcg PO DAILY #90 tablet 02/04/20 09/09/20 Rx metformin 500 mg tablet,extended 500 mg PO QPM #90 tablet 06/25/20 09/09/20 Rx release 24 hr naproxen 500 mg tablet 500 mg PO BID #180 tablet 06/25/20 09/01/20 Rx omeprazole 20 mg PO HS 07/05/20 09/09/20 History erythromyci
--- NOTE | 2020-09-15 14:14 | WPDANESEPPF ---
Anes - Initial Pre Proc Eval Procedure: Operation Date: 09/09/20 10:30 Proposed Procedures p Hand Assisted Laparoscopic Sigmoid Colon Resection - Everette Dixon MD Operation Date: 09/15/20 16:30 Proposed Procedures p Cystoscopy,Left Retrograde Pyelogram,Left Stent Placement - Ziyad Garcia MD Date/Time: 09/15/20 14:14 Surgeon: Everette Dixon MD Pre Op Diagnosis: sigmoid colon CA Patient Data Age: 65 Gender: F Height: 5 ft Weight: 83 kg Last Vital Signs Temp 37.2 C 09/15/20 06:00 Pulse 84 09/15/20 06:00 Resp 18 09/15/20 06:00 BP 168/71 H 09/15/20 06:00 Pulse Ox 96 09/15/20 06:00 Allergies Allergy/AdvReac Type Severity Reaction Status Date / Time No Known Allergies Allergy Verified 09/15/20 13:38 Home Medications Medication Instructions Recorded Confirmed Type levothyroxine 88 mcg tablet 88 mcg PO DAILY #90 tablet 02/04/20 09/09/20 Rx metformin 500 mg tablet,extended 500 mg PO QPM #90 tablet 06/25/20 09/09/20 Rx release 24 hr naproxen 500 mg tablet 500 mg PO BID #180 tablet 06/25/20 09/01/20 Rx omeprazole 20 mg PO HS 07/05/20 09/09/20 History erythromycin 500 mg tablet 1,000 mg PO .COMPLEX #6 tablet 07/29/20 09/09/20 Rx neomycin 500 mg tablet See Rx Instructions .ROUTE 07/29/20 09/09/20 Rx .COMPLEX #6 tablet tramadol 50 mg tablet 50 mg PO Q6H PRN #40 tablet 07/30/20 09/09/20 Rx atorvastatin 10 mg HS 09/01/20 09/09/20 History lisinopril 20 mg PO DAILY 09/09/20 09/09/20 History Laboratory Tests 09/14/20 09/14/20 09/15/20 16:49 20:18 05:03 WBC 17.5 K/mm3 H K/mm3 (4.5-10.0) RBC 4.05 M/mm3 L M/mm3 (4.2-5.4) Hgb 12.1 g/dL g/dL (12.0-15.0) Hct 36.0 % L % (37.0-47.0) MCV 88.9 fl fl (80-100) MCH 29.9 pg pg (26-34) MCHC 33.6 g/dl g/dl (32-36) RDW 12.9 % % (11.5-14.5) Plt Count 252 k/mm3 k/mm3 (150-375) MPV 10.0 fl fl (7.4-10.4) Sodium Potassium Chloride Carbon Dioxide Anion Gap BUN Creatinine Estim Creat Clear Calc Estimated GFR Glucose POC Capillary Glucose 94 mg/dl mg/dl 112 mg/dl H mg/dl (65-105) (65-105) Calcium 09/15/20 09/15/20 09/15/20 05:03 08:03 12:06 WBC RBC Hgb Hct MCV MCH MCHC RDW Plt Count MPV Sodium 136 mmol/L L mmol/L (137-145) Potassium 4.1 mmol/L mmol/L (3.4-5.0) Chloride 96 mmol/L L mmol/L (98-107) Carbon Dioxide 30 mmol/L mmol/L (22-30) Anion Gap 10 mmol/L mmol/L (8-16) BUN 16 mg/dL mg/dL (7-17) Creatinine 1.30 mg/dL H mg/dL (0.7-1.0) Estim Creat Clear Calc 36 ml/min ml/min Estimated GFR 41 L (59 - ) Glucose 123 mg/dL H mg/dL (65-105) POC Capillary Glucose 111 mg/dl H mg/dl 116 mg/dl H mg/dl (65-105) (65-105) Calcium 9.0 mg/dL mg/dL (8.4-10.2) Patient hx anesthesia problems: other (slow to awaken) Family hx anesthesia problems: none PMFSH Past Medical History Medical History Dementia Diabetes Essential (primary) hypertension GERD (gastroesophageal reflux disease) Hyperlipidemia Hypothyroidism (acquired) Pre-op exam Sigmoid polyp Surgical History Surgical History H/O rotator cuff surgery H/O tubal ligation History of appendectomy History of cholecystectomy Previous back surgery Family History Family History Father Hypertension Family history of malignant neoplasm of urinary bladder Mother Hypertension, [place]
[2020-09-15] MEDS: ceFAZolin 2 GM/D5W 50 ML 2 GM/50 ML BAG IVPB (14:18)
[2020-09-15] MEDS: LACTATED RINGERS 1,000 ML 30 ML IV CONT ×2 (14:48→17:37)
--- NOTE | 2020-09-15 16:15 | WPDHPUPDATE1 ---
History and Physical Update Update Date/Time: 09/15/20 16:15 History and Physical has been reviewed, including an updated exam of the patient. There are NO changes in the patient's condition. Risks, benefits, and alternatives have been discussed and questions answered. Patient agrees to proceed with procedure.
[2020-09-15 16:54] LABS: Glucose Point of Care 98 mg/dl (65-105)
--- NOTE | 2020-09-15 17:29 | W.PM.PROC2 ---
Procedure Note - Detailed Date of Procedure 09/15/20 Pre-op Diagnosis sigmoid colon CA Post-op Diagnosis other (Left ureteral injury) Procedure Performed Cystoscopy left retrograde pyelogram Surgeon Ziyad Garcia MD Anesthesia general Findings Extravasation from the left ureter at the level of the pelvic brim. Description of Procedure Informed consent was obtained. Patient taken the operating. A time-out was performed. She was given preoperative IV antibiotics. We inserted a 22 F cystoscope through the urethra into the bladder and pressure of the bladder revealed to be normal without mucosal abnormalities. The patient had bilateral orthotopic ureteral orifices. We cannulated the left ureteral orifice retrograde pyelogram was performed there was a stop of contrast in the pelvic brim and then extravasation noted at this level. I did advance the 5 F angiographic catheter up to the level of the injury again retrograde ureterogram was performed and there was extravasation and no advancement of contrast cephalad. As there was robust contrast drainage and no visualization of contrast into the proximal ureter I did not attempt to place a stent at this time. The patient will be sent tomorrow for placement of a percutaneous nephrostomy tube by interventional Radiology. I discussed with 2 of my partners about the potential of performing a reimplant immediately, however given the timing since her injury (almost 7 days) it was felt that placing nephrostomy tube history evaluate the length of injury and delay repair was in the patient's best interest. I discussed this plan with Dr. Dixon as well. Patient was awakened and taken to PACU in stable condition Estimated Blood Loss 0 Urine Output 600 Drains No Packing No Pathology none sent Complications No immediate complications Condition stable Disposition PACU
[2020-09-15] MEDS: fentaNYL CITRATE INJ (*CRX) 100 MCG/2 ML VIAL 25 MCG IV PUSH ×3 (17:37→17:50)
--- NOTE | 2020-09-15 18:17 | PC.NURSE ---
Pt return from OR per stretcher 09/15/201816.
[2020-09-15 18:58] LABS: Glucose Point of Care 120 mg/dl (65-105)
[2020-09-15] MEDS: ATORVASTATIN 10 MG TABLET BY MOUTH (21:56)
[2020-09-15 22:14] LABS: Glucose Point of Care 185 mg/dl (65-105)
[2020-09-16] MEDS: ACETAMINOPHEN 500 MG TABLET PO (01:35)
[2020-09-16 05:48] LABS: Basophils Percent Auto 0.2 % (0.2-1.2); Hemoglobin 11.9 g/dL (12.0-15.0); Immature Granulocyte Absolute 0.76 K/mm3 (0.00-0.031); Immature Granulocyte Percent A 4.1 % (0-0.5); Lymphocytes Absolute Auto 0.98 K/mm3 (0.9-3.2); Lymphocytes Percent Auto 5.3 % (18.3-44.2); Mean Corpuscular HGB Conc 33.1 g/dl (32-36); Mean Corpuscular Hemoglobin 29.5 pg (26-34); Mean Corpuscular Volume 89.3 fl (80-100); Mean Platelet Volume 10.2 fl (7.4-10.4); Monocytes Absolute Auto 0.9 K/mm3 (0.1-0.6); Monocytes Percent Auto 5.1 % (2.6-8.5); Neutrophils Absolute Auto 15.8 K/mm3 (1.3-6.7); Neutrophils Percent Auto 85.3 % (45.5-73.1); Nucleated Red Blood Cells Perc 0.1 % (0.0-0.2); Platelet Count Result 288 k/mm3 (150-375); Red Blood Count 4.03 M/mm3 (4.2-5.4); White Blood Count 18.5 K/mm3 (4.5-10.0)
[2020-09-16 05:57] VITALS: BP 152/78; PULSE 88; RESP 18; TEMP 36.7; O2SAT 94
[2020-09-16 05:57] LABS: Anion Gap 8 mmol/L (8-16); Blood Urea Nitrogen 16 mg/dL (7-17); Calcium 8.8 mg/dL (8.4-10.2); Carbon Dioxide 29 mmol/L (22-30); Chloride 97 mmol/L (98-107); Estimated CRCL calculation 39 ml/min; Estimated Glomerular Filt Rate 45; Glucose 128 mg/dL (65-105); Potassium 4.4 mmol/L (3.4-5.0); Sodium 134 mmol/L (137-145)
[2020-09-16] MEDS: LEVOTHYROXINE SODIUM 88 MCG TABLET PO (06:15)
--- NOTE | 2020-09-16 07:16 | WPDANESPN ---
Anes - Prog Note Post-Op Date/Time: 09/16/20 07:16 Cardiovascular status: normal Respiratory status: normal Airway patency: baseline Mental status: baseline Post-Op hydration status: normal Vital Signs: Last Vital Signs Temp 98.0 F 09/16/20 05:57 Pulse 88 09/16/20 05:57 Resp 18 09/16/20 05:57 BP 152/78 H 09/16/20 05:57 Pulse Ox 94 09/16/20 05:57 Pain Score (VAS): 05/19 I/O: Intake & Output 09/15/20 09/15/20 09/16/20 15:59 23:59 07:59 Intake Total 120 1250 150 Output Total 750 700 Balance 120 500 -550 Laboratory Tests 09/16/20 05:00 09/16/20 05:00 09/15/20 09/15/20 09/15/20 08:03 12:06 16:51 WBC RBC Hgb Hct MCV MCH MCHC RDW Plt Count MPV Immature Gran % (Auto) Neut % (Auto) Lymph % (Auto) Wetzel % (Auto) Eos % (Auto) Baso % (Auto) Lymph # (Auto) Wetzel # (Auto) Eos # (Auto) Baso # (Auto) Abs Immat Gran (auto) Absolute Neuts (auto) Absolute Nucleated RBC Nucleated RBC % Sodium Potassium Chloride Carbon Dioxide Anion Gap BUN Creatinine Estim Creat Clear Calc Estimated GFR Glucose POC Capillary Glucose 111 H 116 H 98 Calcium 09/15/20 09/15/20 09/16/20 18:48 22:12 05:00 WBC 18.5 H RBC 4.03 L Hgb 11.9 L Hct 36.0 L MCV 89.3 MCH 29.5 MCHC 33.1 RDW 13.0 Plt Count 288 MPV 10.2 Immature Gran % (Auto) 4.1 H Neut % (Auto) 85.3 H Lymph % (Auto) 5.3 L Wetzel % (Auto) 5.1 Eos % (Auto) 0.0 Baso % (Auto) 0.2 Lymph # (Auto) 0.98 Wetzel # (Auto) 0.9 H Eos # (Auto) 0.0 Baso # (Auto) 0.0 Abs Immat Gran (auto) 0.76 H Absolute Neuts (auto) 15.8 H Absolute Nucleated RBC 0.0 Nucleated RBC % 0.1 Sodium Potassium Chloride Carbon Dioxide Anion Gap BUN Creatinine Estim Creat Clear Calc Estimated GFR Glucose POC Capillary Glucose 120 H 185 H Calcium 09/16/20 05:00 WBC RBC Hgb Hct MCV MCH MCHC RDW Plt Count MPV Immature Gran % (Auto) Neut % (Auto) Lymph % (Auto) Wetzel % (Auto) Eos % (Auto) Baso % (Auto) Lymph # (Auto) Wetzel # (Auto) Eos # (Auto) Baso # (Auto) Abs Immat Gran (auto) Absolute Neuts (auto) Absolute Nucleated RBC Nucleated RBC % Sodium 134 L Potassium 4.4 Chloride 97 L Carbon Dioxide 29 Anion Gap 8 BUN 16 Creatinine 1.20 H Estim Creat Clear Calc 39 Estimated GFR 45 L Glucose 128 H POC Capillary Glucose Calcium 8.8 Post-procedural complaints: none Patient Feedback: Patient satisfied with anesthetic care.
[2020-09-16] MEDS: lisinopriL 20 MG TABLET PO (07:52)
[2020-09-16 08:04] LABS: Glucose Point of Care 115 mg/dl (65-105)
[2020-09-16 08:23] LABS: Partial Thromboplastin Time 26.9 SECONDS (22.3-36.8); Prothrombin Time 13.9 Seconds (11.1-14.7)
--- NOTE | 2020-09-16 09:05 | PM.PNGS ---
Progress Note: A&P Assessment and Plan (1) Acute left flank pain: Code(s): R10.9 - Unspecified abdominal pain Status: Acute Assessment and Plan: Left flank pain starting postop day [address] scan abd/pelvis suggested mid ureteral discontinuity. Urology consulted and performed cystoscopy with left retrograde pyelogram. Contrast only passed to the pelvic brim, suggesting injury to that area. Urology feels that due to the presentation being about a week postop, it is best to delay repair for a few weeks. urology plans for left nephrostomy tube placement today for urine flow diversion. Okay from our standpoint to restart patient's diet postop if okay from urology standpoint. (2) Leukocytosis: Qualifiers: Leukocytosis type: unspecified Qualified Code(s): D72.829 - Elevated white blood cell count, unspecified Code(s): D72.829 - Elevated white blood cell count, unspecified Status: Acute Assessment and Plan: WBC up to 18,500 today. Discussed with the Hospitalist. Urology feels this is likely secondary to inflammation and urine spilling into the abdomen. They recommend holding off on sending any urine from the nephrostomy tube for cultures. CT abd/pelvis did not show any evidence of an anastomotic leak. Incisions healing well without any signs of infection. Continue to trend labs and will consider other sources of infection if WBC continues to trend up or if she becomes febrile. (3) Dizziness, nonspecific: Code(s): R42 - Dizziness and giddiness Status: Acute Assessment and Plan: No complaints of dizziness or vertigo today. (4) Malignant neoplasm of sigmoid colon: Code(s): C18.7 - Malignant neoplasm of sigmoid colon Status: Chronic Assessment and Plan: Pathology showed no evidence of malignancy in the specimen. No lymph nodes were involved. Thirteen nodes were examined. 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 Miles. Subjective Subjective Date/Time Seen: 09/16/20 09:05 Post Op day: 7 (SANA sigmoidectomy) Patient reports: no new complaints, still having pain (left flank), flatus, bowel movement and afebrile Interval history: Patient is seen sitting up in the bed with physical therapy. She reports feeling about the same as yesterday. Still having left flank pain. Denies any nausea, vomiting, or bloating. Denies any dizziness this morning. Bowels are still moving with a bowel movement this morning. No other complaints at this time. Review of Systems Review of Systems: All systems reviewed & are unremarkable except as noted in HPI and below Constitutional: Constitutional: Reports as per HPI, Reports no additional constitutional complaints, Denies chills and Denies fever(s) ENT: Denies headache(s) Cardiovascular: Cardiovascular: Reports no additional cardiovascular complaints, Denies chest pain and Denies leg edema Respiratory: Respiratory: Reports no additional respiratory complaints, Denies cough and Denies dyspnea Gastrointestinal: Gastrointestinal: Reports as per HPI and Reports no additional gastrointestinal complaints Genitourinary: Genitourinary: Denies hematuria Neurologic: Reports system reviewed and no additional complaints, except as documented, Denies Abnormal speech present and Denies focal weakness Exam Const: General: comfortable, no acute distress, alert and awake Nutritional Appearance: obese Orientation/consciousness: patient oriented x3 Resp: Effort & Inspection: normal respiratory effort Auscultation: clear to auscultation bilat
[2020-09-16 11:45] VITALS: BP 152/78; PULSE 88; RESP 18; TEMP 36.6; O2SAT 94
[2020-09-16 11:49] LABS: Glucose Point of Care 103 mg/dl (65-105)
[2020-09-16] MEDS: PANTOPRAZOLE 40 MG TABLET PO (12:03)
[2020-09-16] MEDS: MECLIZINE HCL 6.25 MG TABLET PO ×2 (12:04→16:57)
--- NOTE | 2020-09-16 12:08 | PM.IMPN ---
Progress Note: A&P Assessment and Plan (1) Leukocytosis: Qualifiers: Leukocytosis type: unspecified Qualified Code(s): D72.829 - Elevated white blood cell count, unspecified Code(s): D72.829 - Elevated white blood cell count, unspecified Status: Acute Assessment and Plan: Leukocytosis is believe to be inflammatory in nature from findings of Extravasation from the left ureter at the level of the pelvic brim. Discussed with Urology about this and he also is not worried about slight elevation of leukocytosis today due to having cystoscopy yesterday. Plan is to recheck CBC in the morning to make sure it is trending down Monitor vitals for any fevers or other abnormality to be concerned for an infection Continue monitoring (2) PAL (acute kidney injury): Code(s): N17.9 - Acute kidney failure, unspecified Status: Acute Assessment and Plan: Cr 08/30/20 was normal at 0.7. Cr after surgery on 09/09/20 has remained elevated at 1.2, normal BUN. Patient found to have Extravasation from the left ureter at the level of the pelvic brim. Patient had left nephrostomy tube placed and draining urine. Will continue monitoring Urine output and renal function. UA was normal yesterday no signs of infection, or other abnormality Continue monitoring. Consider Nephrology consultation (3) Dizziness, nonspecific: Code(s): R42 - Dizziness and giddiness Status: Acute Assessment and Plan: Patient denies dizziness this morning. Will schedule low-dose meclizine 6.25 mg TID and PRN if needed. Will discharge on low dose to continue taking as needed. (4) Malignant neoplasm of sigmoid colon: Code(s): C18.7 - Malignant neoplasm of sigmoid colon Status: Chronic Assessment and Plan: sigmoid adenocarcinoma: limited to colon. s/p sigmoid colectomy per gen surgery on 09/09/20. Per Surgery, Antiemetics and pain control, DVT prophylaxis Lovenox, Diet Discharge per surgery (5) Essential (primary) hypertension: Code(s): I10 - Essential (primary) hypertension Status: Chronic Assessment and Plan: Blood pressure was 152/78 this morning, slightly elevated. Continue Lisinopril 20 mg p.o. daily She was thought to be fluid overloaded and received IV Bumex per surgery 09/13 and 6/8. Continue monitoring BP. 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 Sliding scale. Adjust medications as needed (7) Spinal stenosis, lumbar region with neurogenic claudication: Code(s): M48.062 - Spinal stenosis, lumbar region with neurogenic claudication Status: Acute Assessment and Plan: lumbar radiculopathy. PRN pain medications are ordered. Stable at this time. Continue PT/OT (8) Hypothyroidism (acquired): Code(s): E03.9 - Hypothyroidism, unspecified Status: Acute Assessment and Plan: Continue home levothyroxine 88 meq p.o. daily (9) Hyperlipidemia: Qualifiers: Hyperlipidemia type: unspecified Qualified Code(s): E78.5 - Hyperlipidemia, unspecified Code(s): E78.5 - Hyperlipidemia, unspecified Status: Acute Assessment and Plan: Continue home atorvastatin 10 mg at bedtime Additional Plan Time Spent With Patient Time with patient: 25 - 35 minutes Subjective Date/time seen: 09/16/20 12:08 Interval history: Date of service 09/16/2020: Patient reports feeling well today, little overwhelmed about everything going on. She just reports some discomfort
--- NOTE | 2020-09-16 12:14 | PCNWS ---
Weekly nutritional screen. Patient is tolerating current diet with adequate intake. Patient stated having a decreased appetite but it is slowly getting better. Not interested in any type of nutritional supplement. No weight loss reported. No nutritional needs at this time.
[2020-09-16 14:00] VITALS: BP 155/78; PULSE 89; RESP 18; TEMP 36.9; O2SAT 95
[2020-09-16 16:36] LABS: Glucose Point of Care 134 mg/dl (65-105)
[2020-09-16 17:28] LABS: Glucose Point of Care 128 mg/dl (65-105)
--- NOTE | 2020-09-16 17:44 | WPDUROPN2 ---
Progress Note: A&P Assessment and Plan (1) Hydronephrosis: Code(s): N13.30 - Unspecified hydronephrosis Status: Acute Assessment and Plan: Successful left nephrostomy tube placement today. Plan to observe the patient overnight. Okay to remove Farley catheter tomorrow Plan repeat BMP and CBC in the morning Plan outpatient evaluation and planning for left ureteral reconstruction. I will refer her to Dr. Dominic Velazquez for evaluation and treatment. (2) Left ureteral injury: Code(s): S37.10XA - Unspecified injury of ureter, initial encounter Status: Acute Subjective Subjective Date/Time Seen: 09/16/20 17:44 Patient feeling much better today after nephrostomy tube insertion Exam Narrative: Exam Narrative: The patient is awake alert in no acute distress. She is comfortable. Her left nephrostomy tube and Farley catheter draining clear urine Objective Data Vital Signs Vital Signs: Vital Signs - 24 hr 09/15/20 17:50 09/15/20 18:30 09/15/20 18:45 Temperature 36.7 C 36.6 C Pulse Rate 92 88 90 Respiratory Rate 18 16 16 Blood Pressure 126/54 L 130/62 140/80 Pulse Oximetry 95 94 94 09/15/20 19:15 09/15/20 20:15 09/16/20 05:57 Temperature 36.9 C 36.8 C 36.7 C Pulse Rate 92 94 88 Respiratory Rate 16 18 18 Blood Pressure 148/80 H 144/80 H 152/78 H Pulse Oximetry 93 93 94 09/16/20 11:45 09/16/20 14:00 Temperature 36.6 C 36.9 C Pulse Rate 88 89 Respiratory Rate 18 18 Blood Pressure 152/78 H 155/78 H Pulse Oximetry 94 95 Intake/Output Intake/Output: Intake & Output 09/13/20 09/14/20 09/15/20 09/16/20 23:59 23:59 23:59 23:59 Intake Total 990 1000 1720 440 Output Total 3200 900 1350 1080 Balance -2210 100 370 -640 Meds/Results Medications: Active Medications Generic Name Dose Route Start Last Admin Trade Name Freq PRN Reason Stop Dose Admin Acetaminophen 500 mg 09/09/20 17:16 09/16/20 01:35 Acetaminophen 500 Mg Tablet PO 500 mg Q6H PRN Administration Mild Pain (1-3) or Fever Hydrocodone Bitart/Acetaminophen 1 tab 09/09/20 17:16 09/15/20 21:53 Hydrocodone/Acetaminophen (*Crx) 5-325 Mg Tablet PO 1 tab Q4H PRN Administration Pain Rated 4-6 Hydrocodone Bitart/Acetaminophen 1 tab 09/09/20 17:16 Hydrocodone/Acetaminophen (*Crx) 7.5-325 Mg Tablet PO Q4H PRN Pain Rated 7-10 Atorvastatin Calcium 10 mg 09/09/20 21:00 09/15/20 21:56 Atorvastatin 10 Mg Tablet BY MOUTH 10 mg HS ZAC Administration Dextrose 12.5 gm 09/09/20 17:16 Dextrose 50% 25 Gm/50 Ml Syringe IV PUSH PRN PRN Hypoglycemia Protocol Fentanyl Citrate 25 mcg 09/15/20 14:16 09/15/20 17:50 Fentanyl Citrate Inj (*Crx) 100 Mcg/2 Ml Vial IV PUSH 25 mcg Q2M PRN Administration Pain Glucagon 1 mg 09/09/20 17:16 Glucagon For Inj 1 Mg Vial IM PRN PRN Hypoglycemia Protocol Glucose 15 gm 09/09/20 17:16 Glucose Oral Gel 15 Gm Of Glucse In 37.5 Gm Tube PO PRN PRN Hypoglycemia Protocol Dextrose 1,000 mls @ 100 mls/hr 09/09/20 17:16 Dextrose 5% 1,000 Ml IVPB PRN PRN Hypoglycemia Protocol Lactated Ringer's 1,000 mls @ 30 mls/hr 09/15/20 14:20 09/16/20 13:25 Lr - Lactated Ringers Iv IV CONT Not Given .Q24H ZAC Lactated Ringer's 1,000 mls @ 30 mls/hr 09/15/20 14:20 09/16/20 13:25 Lr - Lactated Ringers Iv IV CONT Not Given .Q24H ZAC Insulin Aspart 4 - 8 units 09/09/20 17:16 09/16/20 16:35 Insulin Aspart (*Bkc) 100 Units/Ml SUB-Q Not Given TIDWM [facility] Protocol Levothyroxine Sodium 88 mcg 09/10/20 06:30 09/16/20 06:15 Levothyroxine Sodium 88 Mcg Tablet PO 88 mcg DAILY@0630 ZAC Administration Lisinopril 20 mg 09/10/20 09:00 09/16/20 07:52 Lisinopril 20 Mg Tablet PO 20 mg DAILY ZAC Administration Meclizine HCl 25 mg 09/12/20 18:39 09/14/20 10:23 Meclizine Hcl 25 Mg Tablet PO 25 mg Q6H PRN Administration
[2020-09-16] MEDS: HYDROcodone/acetaminophen (*CRX) 5-325 MG TABLET 1 TAB PO (18:55)
[2020-09-16] MEDS: ATORVASTATIN 10 MG TABLET BY MOUTH (20:38)
[2020-09-16 20:56] LABS: Glucose Point of Care 127 mg/dl (65-105)
[2020-09-16 20:59] VITALS: BP 143/54; PULSE 92; RESP 18; TEMP 37.1; O2SAT 94
[2020-09-17] MEDS: HYDROcodone/acetaminophen (*CRX) 5-325 MG TABLET 1 TAB PO (02:53)
[2020-09-17 05:06] VITALS: BP 147/76; PULSE 80; RESP 18; TEMP 36.3; O2SAT 95
[2020-09-17 05:41] LABS: Basophils Percent Auto 0.2 % (0.2-1.2); Eosinophils Absolute Auto 0.2 K/mm3 (0-0.3); Eosinophils Percent Auto 1.7 % (0-4.4); Hematocrit 33.3 % (37.0-47.0); Immature Granulocyte Absolute 0.55 K/mm3 (0.00-0.031); Immature Granulocyte Percent A 4.1 % (0-0.5); Lymphocytes Absolute Auto 1.99 K/mm3 (0.9-3.2); Lymphocytes Percent Auto 14.9 % (18.3-44.2); Mean Corpuscular Volume 87.9 fl (80-100); Mean Platelet Volume 9.8 fl (7.4-10.4); Monocytes Percent Auto 7.8 % (2.6-8.5); Neutrophils Absolute Auto 9.5 K/mm3 (1.3-6.7); Neutrophils Percent Auto 71.3 % (45.5-73.1); Platelet Count Result 295 k/mm3 (150-375); Red Blood Count 3.79 M/mm3 (4.2-5.4); White Blood Count 13.4 K/mm3 (4.5-10.0)
[2020-09-17 05:51] LABS: Potassium 3.8 mmol/L (3.4-5.0)
[2020-09-17 05:56] LABS: Anion Gap 6 mmol/L (8-16); Blood Urea Nitrogen 13 mg/dL (7-17); Calcium 8.2 mg/dL (8.4-10.2); Carbon Dioxide 29 mmol/L (22-30); Chloride 100 mmol/L (98-107); Estimated CRCL calculation 57 ml/min; Estimated Glomerular Filt Rate > 60; Glucose 111 mg/dL (65-105); Sodium 135 mmol/L (137-145)
[2020-09-17] MEDS: LEVOTHYROXINE SODIUM 88 MCG TABLET PO (06:30)
[2020-09-17 07:37] LABS: Glucose Point of Care 111 mg/dl (65-105)
[2020-09-17] MEDS: MECLIZINE HCL 6.25 MG TABLET PO ×2 (08:02→12:19)
[2020-09-17] MEDS: PANTOPRAZOLE 40 MG TABLET PO (08:02)
[2020-09-17] MEDS: lisinopriL 20 MG TABLET PO (08:02)
--- NOTE | 2020-09-17 08:56 | WPDUROPN2 ---
Progress Note: A&P Assessment and Plan (1) Left ureteral injury: Code(s): S37.10XA - Unspecified injury of ureter, initial encounter Status: Acute Assessment and Plan: -repeat BMP and CBC this morning shows improvement of her leukocytosis. Her creatinine has now normalized -okay to be discharged home from a urologic perspective today. - Plan outpatient evaluation and planning for left ureteral reconstruction. I will refer her to Dr. Dominic Velazquez for evaluation and treatment. (2) Hydronephrosis: Code(s): N13.30 - Unspecified hydronephrosis Status: Acute (3) Acute left flank pain: Code(s): R10.9 - Unspecified abdominal pain Status: Acute Subjective Subjective Date/Time Seen: 09/17/20 08:56 Feeling well Exam Narrative: Exam Narrative: The patient is awake alert oriented no acute distress. Breathing is labored. Her abdomen soft nontender nondistended. Left percutaneous nephrostomy tube is draining clear urine Objective Data Vital Signs Vital Signs: Vital Signs - 24 hr 09/16/20 11:45 09/16/20 14:00 09/16/20 20:59 Temperature 36.6 C 36.9 C 37.1 C Pulse Rate 88 89 92 Respiratory Rate 18 18 18 Blood Pressure 152/78 H 155/78 H 143/54 H Pulse Oximetry 94 95 94 09/17/20 05:06 Temperature 36.3 C L Pulse Rate 80 Respiratory Rate 18 Blood Pressure 147/76 H Pulse Oximetry 95 Intake/Output Intake/Output: Intake & Output 09/14/20 09/15/20 09/16/20 09/17/20 23:59 23:59 23:59 23:59 Intake Total 1000 1720 630 440 Output Total 900 1350 1150 900 Balance 100 563 -520 460 Meds/Results Medications: Active Medications Generic Name Dose Route Start Last Admin Trade Name Freq PRN Reason Stop Dose Admin Acetaminophen 500 mg 09/09/20 17:16 09/16/20 01:35 Acetaminophen 500 Mg Tablet PO 500 mg Q6H PRN Administration Mild Pain (1-3) or Fever Hydrocodone Bitart/Acetaminophen 1 tab 09/09/20 17:16 09/17/20 02:53 Hydrocodone/Acetaminophen (*Crx) 5-325 Mg Tablet PO 1 tab Q4H PRN Administration Pain Rated 4-6 Hydrocodone Bitart/Acetaminophen 1 tab 09/09/20 17:16 Hydrocodone/Acetaminophen (*Crx) 7.5-325 Mg Tablet PO Q4H PRN Pain Rated 7-10 Atorvastatin Calcium 10 mg 09/09/20 21:00 09/16/20 20:38 Atorvastatin 10 Mg Tablet BY MOUTH 10 mg HS ZAC Administration Dextrose 12.5 gm 09/09/20 17:16 Dextrose 50% 25 Gm/50 Ml Syringe IV PUSH PRN PRN Hypoglycemia Protocol Fentanyl Citrate 25 mcg 09/15/20 14:16 09/15/20 17:50 Fentanyl Citrate Inj (*Crx) 100 Mcg/2 Ml Vial IV PUSH 25 mcg Q2M PRN Administration Pain Glucagon 1 mg 09/09/20 17:16 Glucagon For Inj 1 Mg Vial IM PRN PRN Hypoglycemia Protocol Glucose 15 gm 09/09/20 17:16 Glucose Oral Gel 15 Gm Of Glucse In 37.5 Gm Tube PO PRN PRN Hypoglycemia Protocol Dextrose 1,000 mls @ 100 mls/hr 09/09/20 17:16 Dextrose 5% 1,000 Ml IVPB PRN PRN Hypoglycemia Protocol Lactated Ringer's 1,000 mls @ 30 mls/hr 09/15/20 14:20 09/16/20 13:25 Lr - Lactated Ringers Iv IV CONT Not Given .Q24H ZAC Lactated Ringer's 1,000 mls @ 30 mls/hr 09/15/20 14:20 09/16/20 13:25 Lr - Lactated Ringers Iv IV CONT Not Given .Q24H ZAC Insulin Aspart 4 - 8 units 09/09/20 17:16 09/17/20 07:41 Insulin Aspart (*Bkc) 100 Units/Ml SUB-Q Not Given TIDWM [facility] Protocol Levothyroxine Sodium 88 mcg 09/10/20 06:30 09/17/20 06:30 Levothyroxine Sodium 88 Mcg Tablet PO 88 mcg DAILY@0630 ZAC Administration Lisinopril 20 mg 09/10/20 09:00 09/17/20 08:02 Lisinopril 20 Mg Tablet PO 20 mg DAILY ZAC Administration Meclizine HCl 25 mg 09/12/20 18:39 09/14/20 10:23 Meclizine Hcl 25 Mg Tablet PO 25 mg Q6H PRN Administration Vertigo Meclizine HCl 6.25 mg 09/14/20 17:00 09/17/20 08:02 Meclizine Hcl 6.25 Mg Tablet PO 6.25 mg TID ZAC Administra
--- NOTE | 2020-09-17 10:31 | PM.IMPN ---
Progress Note: A&P Assessment and Plan (1) Leukocytosis: Qualifiers: Leukocytosis type: unspecified Qualified Code(s): D72.829 - Elevated white blood cell count, unspecified Code(s): D72.829 - Elevated white blood cell count, unspecified Status: Acute Assessment and Plan: Leukocytosis is believe to be inflammatory in nature from findings of Extravasation from the left ureter at the level of the pelvic brim. Discussed with Urology about this and he also is not worried about slight elevation of leukocytosis today due to having cystoscopy yesterday. Leukocytosis trending down, vitals normal. No signs of infection. Most likely leukocytosis is from inflammation. Will recheck labs in 1 week as outpatient. Cleared from medical standpoint for discharge when surgery agrees. Call me with any questions. (2) PAL (acute kidney injury): Code(s): N17.9 - Acute kidney failure, unspecified Status: Acute Assessment and Plan: Cr 08/30/20 was normal at 0.7. Cr after surgery on 09/09/20 has remained elevated at 1.2-1.3. Since nephrostomy was placed Cr improved to 0.8. Much improved. PAL caused by Extravasation from the left ureter at the level of the pelvic brim. Will recheck labs in 1 week and follow up with urology. (3) Dizziness, nonspecific: Code(s): R42 - Dizziness and giddiness Status: Acute Assessment and Plan: Patient had mild dizziness this morning. Will discharge on Meclizine 6.25 mg TID, then taper as tolerated. Follow up with PCP. (4) Malignant neoplasm of sigmoid colon: Code(s): C18.7 - Malignant neoplasm of sigmoid colon Status: Chronic Assessment and Plan: sigmoid adenocarcinoma: limited to colon. s/p sigmoid colectomy per gen surgery on 09/09/20. Per Surgery, Antiemetics and pain control, DVT prophylaxis Lovenox, Diet Discharge per surgery (5) Essential (primary) hypertension: Code(s): I10 - Essential (primary) hypertension Status: Chronic Assessment and Plan: Blood pressure was 147/76 this morning, slightly elevated prior to home meds being given. Told to check BP at home and follow up with PCP. 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 PRN pain medications are ordered. Stable at this time. (8) Hypothyroidism (acquired): Code(s): E03.9 - Hypothyroidism, unspecified Status: Acute Assessment and Plan: Continue home levothyroxine 88 meq p.o. daily (9) Hyperlipidemia: Qualifiers: Hyperlipidemia type: unspecified Qualified Code(s): E78.5 - Hyperlipidemia, unspecified Code(s): E78.5 - Hyperlipidemia, unspecified Status: Acute Assessment and Plan: Continue home atorvastatin 10 mg at bedtime Additional Plan Time Spent With Patient Time with patient: 25 - 35 minutes Subjective Date/time seen: 09/17/20 10:31 Interval history: Date of service 09/17/2020: Patient reports feeling well today, no more sharp stabbing pain to her left flank area since Nephrostomy tube was placed. urinating well, without symptoms. Only slight dizziness. She denies any fevers, chills, urinary symptoms, nausea, vomiting. She still eating and drinking without any issues, passing gas and moving her bowels. Denies any chest pain, shortness of breath, coug
[2020-09-17 11:59] LABS: Glucose Point of Care 77 mg/dl (65-105)
--- NOTE | 2020-09-17 14:01 | PM.DS ---
DS: Admitting Diagnosis Admitting Diagnosis Admitting Diagnosis: Abdominal pain and Leukocytosis. DS: Discharge Diagnosis Discharge Diagnosis (1) Left ureteral injury: Code(s): S37.10XA - Unspecified injury of ureter, initial encounter Status: Acute Assessment and Plan: This was discovered during this admission. Once discovered appropriate steps, including Urology consultation were taken. Pt was infomed of the problem and of the plan to corredt it. She knows that allowing the inflamation related to the problem and to the recent colon surgery to settle doown for about 2 months will lead to a better ability to repair and thereby reconstitute the left ureter. She will be seen by Dr. Velazquez form Urology to plan this. (2) Hydronephrosis: Code(s): N13.30 - Unspecified hydronephrosis Status: Acute Assessment and Plan: Improved with the placement of the Nephrostomy tube. (3) Acute left flank pain: Code(s): R10.9 - Unspecified abdominal pain Status: Acute Assessment and Plan: Improved with the placement of the nephrostomy tube. (4) Leukocytosis: Qualifiers: Leukocytosis type: unspecified Qualified Code(s): D72.829 - Elevated white blood cell count, unspecified Code(s): D72.829 - Elevated white blood cell count, unspecified Status: Acute Assessment and Plan: No signs of UTI. Thoought to be related to the blockage of the left ureter and dthe resultant inflammation. Trending down on discharge. (5) Hyperlipidemia: Qualifiers: Hyperlipidemia type: unspecified Qualified Code(s): E78.5 - Hyperlipidemia, unspecified Code(s): E78.5 - Hyperlipidemia, unspecified Status: Acute Assessment and Plan: Pt will continue her usual meds for this. (6) Hypothyroidism (acquired): Code(s): E03.9 - Hypothyroidism, unspecified Status: Acute Assessment and Plan: Not addressed Pt. will continue her usual meds for this. (7) Malignant neoplasm of sigmoid colon: Code(s): C18.7 - Malignant neoplasm of sigmoid colon Status: Chronic Assessment and Plan: S/p Left hemicolectomy. Path reviewed and it appears the the malignant portion of the polyp was removed at the time of polypectomy. No residual tumor noted on the path after the recent colon resection. Pt will ot need any further treatment for this besides the completed surgery. (8) Essential (primary) hypertension: Code(s): I10 - Essential (primary) hypertension Status: Chronic Assessment and Plan: Pt will continue her current meds for this. (9) BMI 35.0-35.9,adult: Code(s): Z68.35 - Body mass index [BMI] 35.0-35.9, adult Status: Chronic Assessment and Plan: Pt encouraged to lose weight by following a low fat diet and by burning calories by exercising --- walking. 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 (11) Dizziness, nonspecific: Code(s): R42 - Dizziness and giddiness Status: Acute Assessment and Plan: This has been controlled with use of Meclazine. A script for this was given by our hospitlaist and pt will F/U with her PCP for further care of this problem. She will take precautions and use a walker at home until she feels steady to walk without it. DS: Summary Hospital Course Reason for hospitalization: Postop complications with elevated white count and abdominal pain. Hospital Course: The patient was admitted with increased a
== END 2020-09-17 15:10 | disposition home health service (06) | DRG 330 ==
LOC: ANH2MED 09-14 07:10
PROVIDERS: Nurse Practitioner; Nurse Practitioner Family; Physician Assistant; Surgery; Urology; Admitting Provider Surgery; PCP Family Medicine; Visit Provider Surgery
PROC: 0D1E4Z4 Bypass Large Intestine to Cutaneous, Percutaneous Endoscopic Approach (ICD-10-PCS; principal; 2020-09-09 10:30)
PROC: BT1F1ZZ Fluoroscopy of Left Kidney, Ureter and Bladder using Low Osmolar Contrast (ICD-10-PCS; CPT 52352; principal; 2020-09-15 16:30)
DX: C18.7 Malignant neoplasm of sigmoid colon (principal); N13.39 Other hydronephrosis; S37.19XA Other injury of ureter, initial encounter; N99.89 Other postprocedural complications and disorders of genitourinary system; N99.0 Postprocedural (acute) (chronic) kidney failure; R42 Dizziness and giddiness; I10 Essential (primary) hypertension; E78.5 Hyperlipidemia, unspecified; E03.9 Hypothyroidism, unspecified; E66.9 Obesity, unspecified; Z68.35 Body mass index [BMI] 35.0-35.9, adult; E11.9 Type 2 diabetes mellitus without complications; F03.90 Unspecified dementia, unspecified severity, without behavioral disturbance, psychotic disturbance, mood disturbance, and anxiety; K21.9 Gastro-esophageal reflux disease without esophagitis; M48.061 Spinal stenosis, lumbar region without neurogenic claudication; Z90.49 Acquired absence of other specified parts of digestive tract; Z87.891 Personal history of nicotine dependence; Y65.8 Other specified misadventures during surgical and medical care
CPT/HCPCS: 36415; 50432; 71046; 74176; 74420; 80048; 80053; 80069; 81003; 82948; 83735; 85025; 85027; 85610; 85730; 88309; 97110; 97161; 97165; 97530; 97535; A9270; C1713; C1729; C1769; C1887; C9803; J0690; J1100; J1170; J1650; J1885; J2250; J2270; J2405; J2704; J2710; J2765; J3010; J3480; J7030; J7120; Q9966; Q9967; U0003; U0005

== ENCOUNTER 2020-09-22 13:32 | Outpatient (CLI) | payer MEDICARE, SELFPAY ==
[2020-09-22 14:15] LABS: EDCOVIDSCREEN Negative (Negative)
== END 2020-09-22 13:33 | disposition home or self-care (01) ==
PROVIDERS: PCP Family Medicine; Visit Provider Urology
DX: Z01.812 Encounter for preprocedural laboratory examination (principal); Z20.822 Contact with and (suspected) exposure to COVID-19
CPT/HCPCS: 36415; 87426; C9803

== ENCOUNTER 2020-09-24 00:51 | Day surgery (SDC) | payer MEDICARE, SELFPAY ==
[2020-09-21 15:56] VITALS: BMI 35.1
--- NOTE | 2020-09-23 07:21 | PM.HPGS ---
History of Present Illness History of Present Illness Consent: Risks, benefits, and alternatives have been discussed and questions answered. Patient agrees to proceed with procedure. Chief complaint: Left hydronephrosis Narrative: Letty Irene is a 65 year old female with visit which was status post recent hand assisted laparoscopic colectomy with postoperative extravasation from her left ureter. She has undergone placement of a left nephrostomy to. After discussion options she has elected to present within the attempt at a left ureteral stent placement via ureteroscopy. Review of Systems Cardiovascular: Cardiovascular: Denies chest pain, Denies lightheadedness, Denies palpitations and Denies dyspnea Respiratory: Respiratory: Denies dyspnea Gastrointestinal: Gastrointestinal: Denies diarrhea, Denies nausea and Denies vomiting Genitourinary: Genitourinary: Denies hematuria and Denies dysuria Endocrine: Endocrine: Denies palpitations PMFSH Past Medical History Medical History Dementia Diabetes Essential (primary) hypertension GERD (gastroesophageal reflux disease) Hydronephrosis Hyperlipidemia Hypothyroidism (acquired) Left ureteral injury Pre-op exam Sigmoid polyp Surgical History Surgical History H/O rotator cuff surgery H/O tubal ligation History of appendectomy History of cholecystectomy Previous back surgery Family History Family History Father Hypertension Family history of malignant neoplasm of urinary bladder Mother Hypertension, Onset Age: 50 Heart attack Sibling Hypertension Family history of elevated blood lipids Family history of cardiovascular disease Malignant neoplasm of prostate Grandparent Heart disease Cancer Hypertension Social History Social History Smoking status: Never smoker Second hand tobacco smoke exposure: No Additional smoking assessment comments: [place] SOCIAL SMOKER/6MONTHS-1YR/QUIT 1972 Alcohol intake: never Substance use: never Substance use type: does not use Additional living arrangements comments: [employer] Gender identity (if verbalized by the patient): Female Spiritual care concerns: No Meds Home Medications and Allergies Home Medications Medication Instructions Recorded Confirmed Type metformin 500 mg tablet,extended 500 mg PO QPM #90 tablet 06/25/20 09/21/20 Rx release 24 hr omeprazole 20 mg PO HS 07/05/20 09/21/20 History tramadol 50 mg tablet 50 mg PO Q6H PRN #40 tablet 07/30/20 09/21/20 Rx atorvastatin 10 mg PO HS 09/01/20 09/21/20 History lisinopril 20 mg PO QAM 09/09/20 09/21/20 History meclizine 12.5 mg PO TID PRN #30 tablet 09/17/20 09/21/20 Rx levothyroxine 88 mcg PO QAM 09/21/20 09/21/20 History naproxen 500 mg PO BID PRN 09/21/20 09/21/20 History Allergies Allergy/AdvReac Type Severity Reaction Status Date / Time No Known Allergies Allergy Verified 09/21/20 15:51 Exam Const: General: no acute distress Resp: Effort & Inspection: normal respiratory effort GI: Inspection: non-distended GI Palp: No abdominal tenderness and No Guarding due to palpation present (GI) Auscultation: normal bowel sounds Assessment and Plan Assessment and plan (1) Left ureteral injury: Code(s): S37.10XA - Unspecified injury of ureter, initial encounter Status: Acute Assessment and Plan: Cystoscopy, left ureteroscopy with attempted left ureteral stent placement
[2020-09-24] VITALS (7 sets, daily range): BP systolic 116–148; BP diastolic 49–74; PULSE 80–91; RESP 10–20; TEMP 36.1–36.4; O2SAT 98–100; BMI 33.1
--- NOTE | ~2020-09-24 | XR_ITS ---
EXAMINATION: XR retrograde pyelogram LT EXAM DATE: 09/24/2020 14:31 INDICATION: Left-sided retrograde pyelogram. TECHNIQUE: Fluoroscopy used during XR retrograde pyelogram LT performed by Dr. Isreal Barlow MD , urologist. The radiologist Lucas Livingston M.D. dictating this report of the image(s) available was no t present for the procedure. Total fluoroscopic time of 157 seconds. The DAP for this procedure was 4623 radcm2. A total of 8 images sent to PACS from the exam. Correlation is made to CT abdomen pelv is 09/15/2020. FINDINGS: Left ureter was cannulated, injected. It is truncated ovary S1 level. No contrast extravas ation visualized on single image of this available. The left nephrostomy tube was then identified, mi d ureter has abnormal lateral course, with pooling of contrast identified at its terminus, probably e xtravasated. Mild left hydronephrosis. Lumbar fusion hardware. Correlate with procedure note. IMPRESSION: Transected left mid ureter with some pooling of contrast injected through nephrostomy tub e, probably extraluminal. Reviewed, dictated and finalized at location B. IMPRESSION: Transected left mid ureter with some pooling of contrast injected t hrough nephrostomy tube, probably extraluminal.
--- NOTE | 2020-09-24 06:41 | WPDHPUPDATE1 ---
History and Physical Update Update Date/Time: 09/24/20 06:41 History and Physical has been reviewed, including an updated exam of the patient. There are NO changes in the patient's condition. Risks, benefits, and alternatives have been discussed and questions answered. Patient agrees to proceed with procedure.
--- NOTE | 2020-09-24 10:27 | WPDANESEPPF ---
Anes - Initial Pre Proc Eval Procedure: Operation Date: 09/24/20 11:30 Proposed Procedures p Cystoscopy, Left Ureteroscopy, Left Stent Placement - Isreal Barlow MD Date/Time: 09/24/20 10:27 Surgeon: Isreal Barlow MD Pre Op Diagnosis: Left hydronephrosis Patient Data Age: 65 Gender: F Height: 1.55 m Weight: 79.5 kg Last Vital Signs Temp 36.1 C L 09/24/20 09:45 Pulse 86 09/24/20 09:45 Resp 16 09/24/20 09:45 BP 124/49 L 09/24/20 09:45 Pulse Ox 100 09/24/20 09:45 Allergies Allergy/AdvReac Type Severity Reaction Status Date / Time No Known Allergies Allergy Verified 09/21/20 15:51 Home Medications Medication Instructions Recorded Confirmed Type metformin 500 mg tablet,extended 500 mg PO QPM #90 tablet 06/25/20 09/21/20 Rx release 24 hr omeprazole 20 mg PO HS 07/05/20 09/21/20 History tramadol 50 mg tablet 50 mg PO Q6H PRN #40 tablet 07/30/20 09/21/20 Rx atorvastatin 10 mg PO HS 09/01/20 09/21/20 History lisinopril 20 mg PO QAM 09/09/20 09/21/20 History meclizine 12.5 mg PO TID PRN #30 tablet 09/17/20 09/21/20 Rx levothyroxine 88 mcg PO QAM 09/21/20 09/21/20 History naproxen 500 mg PO BID PRN 09/21/20 09/21/20 History Patient hx anesthesia problems: none Family hx anesthesia problems: none [facility] Past Medical History Medical History Dementia Diabetes Essential (primary) hypertension GERD (gastroesophageal reflux disease) Hydronephrosis Hyperlipidemia Hypothyroidism (acquired) Left ureteral injury Pre-op exam Sigmoid polyp Surgical History Surgical History H/O rotator cuff surgery H/O tubal ligation History of appendectomy History of cholecystectomy Previous back surgery Family History Family History Father Hypertension Family history of malignant neoplasm of urinary bladder Mother Hypertension, Onset Age: 50 Heart attack Sibling Hypertension Family history of elevated blood lipids Family history of cardiovascular disease Malignant neoplasm of prostate Grandparent Heart disease Cancer Hypertension Social History Social History Smoking status: Never smoker Second hand tobacco smoke exposure: No Additional smoking assessment comments: [place] SOCIAL SMOKER/6MONTHS-1YR/QUIT 1972 Alcohol intake: never Substance use: never Substance use type: does not use Living arrangements: with family Additional living arrangements comments: [employer] Gender identity (if verbalized by the patient): Female Spiritual care concerns: No Anes - Eval Final PreProcedure Day of Procedure 09/24/20 10:27 Patient weight: obese Heart: regular rate and rhythm Lungs: clear to auscultation and normal air movement Airway: Mallampati scale class II Neurological: alert and oriented Last oral intake: >/= 8 hours ASA classification: III Emergent: no Anesthetic plan: proceed Anesthesia type and monitoring: general LMA Informed Consent: The patient's anesthetic plan and its attendant risks and benefits were discussed with the patient/family/POA. Questions were solicited and answers provided to the satisfaction of the patient/family/POA.
[2020-09-24 10:45] LABS: Glucose Point of Care 121 mg/dl (65-105)
[2020-09-24] MEDS: LACTATED RINGERS 1,000 ML 30 ML IV CONT ×2 (10:45→15:05)
--- NOTE | 2020-09-24 12:20 | SUR.PREOP ---
0945- Notified patient procedure will be delayed. Patient verbalized understanding.
[2020-09-24] MEDS: ceFAZolin 2 GM/D5W 50 ML 2 GM/50 ML BAG IVPB (13:46)
[2020-09-24] MEDS: LIDOCAINE HCL 2% GEL UROJET 10 ML PKG MUCOUS MEM (14:01)
[2020-09-24 14:44] LABS: Glucose Point of Care 108 mg/dl (65-105)
--- NOTE | 2020-09-24 15:24 | W.PM.PROC2 ---
Procedure Note - Detailed Date of Procedure 09/24/20 Pre-op Diagnosis Left hydronephrosis Post-op Diagnosis same Procedure Performed Cystoscopy, left retrograde pyelography, left ureteroscopy, attempted left ureteral stent placement Surgeon Isreal Barlow MD Bed Placement Coordinator None Anesthesia general Indications Left hydronephrosis Findings Left mid ureteral injury Description of Procedure Patient brought to the operative suite if she has prepped draped in routine sterile fashion while in a dorsal lithotomy position. Cystoscopy is undertaken with a 19 F rigid cystoscope. The bladder was endoscopically normal without foreign body neoplasm should. His a single orthotopic ureteral orifice bilaterally. 0.035 in glidewire was advanced in the left mid ureter were reaches a point of obstruction. Used an angiographic catheter to obtain a retrograde pyelogram which, on this occasion, shows no extravasation but also no contrast into the more proximal ureter. Appears to be completely obstructed at this point. I tried passing straight and angle tip wires to no avail. Performed digital ureteroscopy in could not identify a ureteral lumen. Then performed a left antegrade nephrostogram through her indwelling nephrostomy tube. I could not get contrast to go beyond the mid ureter. Implants None Drains No Packing No Pathology none sent Complications No immediate complications Condition stable Disposition PACU
== END 2020-09-24 16:04 | disposition home or self-care (01) ==
PROVIDERS: PCP Family Medicine; Visit Provider Urology
PROC: (CPT 52352; principal; 2020-09-24 11:30)
DX: N13.30 Unspecified hydronephrosis (principal); N99.89 Other postprocedural complications and disorders of genitourinary system; Z93.6 Other artificial openings of urinary tract status; Z85.038 Personal history of other malignant neoplasm of large intestine; Z90.49 Acquired absence of other specified parts of digestive tract; F03.90 Unspecified dementia, unspecified severity, without behavioral disturbance, psychotic disturbance, mood disturbance, and anxiety; E11.9 Type 2 diabetes mellitus without complications; I10 Essential (primary) hypertension; E78.5 Hyperlipidemia, unspecified; E03.9 Hypothyroidism, unspecified; K21.9 Gastro-esophageal reflux disease without esophagitis; Z79.84 Long term (current) use of oral hypoglycemic drugs; E66.9 Obesity, unspecified; Z68.33 Body mass index [BMI] 33.0-33.9, adult; Y83.8 Other surgical procedures as the cause of abnormal reaction of the patient, or of later complication, without mention of misadventure at the time of the procedure
CPT/HCPCS: 52005; 36415; 74420; 82948; 87426; A9270; C1769; C1887; C9803; J0690; J1100; J2250; J2590; J2704; J3010; J7120; Q9966

== ENCOUNTER 2020-10-04 11:53 | Outpatient (CLI) | payer MEDICARE, SELFPAY ==
--- NOTE | ~2020-10-04 | XR_ITS ---
EXAMINATION: XR abdomen obstructive series EXAM DATE: 10/04/2020 12:38 INDICATION: C18.7-Malignant neoplasm sigmoid colon. TECHNIQUE: Frontal upright projection of the upper abdomen, frontal projection of the lower abdomen f or interpretation. There is no prior study for comparison. FINDINGS: Left-sided nephrostomy tube. Lumbar fusion hardware L4-S1. Cholecystectomy clips. Nonobstr uctive bowel gas pattern. Expected amount of colonic stool and gas. Rectosigmoid anastomosis material . Moderate disc disease L2-3 and L3-4. There is no free intraperitoneal air. Advanced pubis arthritis and moderate bilateral hip primary osteoarthritis. IMPRESSION: 1. Nonobstructive bowel gas pattern. 2. Surgical changes. Reviewed, dictated and finalized at location A.
[2020-10-04 12:21] LABS: Hematocrit 35.8 % (37.0-47.0); Hemoglobin 11.3 g/dL (12.0-15.0); Mean Corpuscular HGB Conc 31.6 g/dl (32-36); Mean Corpuscular Hemoglobin 28.5 pg (26-34); Mean Corpuscular Volume 90.4 fl (80-100); Mean Platelet Volume 9.6 fl (7.4-10.4); Platelet Count Result 327 k/mm3 (150-375); Red Blood Count 3.96 M/mm3 (4.2-5.4); Red Cell Distribution Width 12.9 % (11.5-14.5); White Blood Count 13.2 K/mm3 (4.5-10.0)
[2020-10-04 12:33] LABS: Alanine Aminotransferase 17 U/L (4-35); Albumin Level 3.8 g/dL (3.5-5.1); Alkaline Phosphatase 101 U/L (38-126); Anion Gap 9 mmol/L (8-16); Aspartate Amino Transferase 18 U/L (14-36); Bilirubin,Total 0.4 mg/dL (0.2-1.3); Blood Urea Nitrogen 7 mg/dL (7-17); Calcium 9.4 mg/dL (8.4-10.2); Carbon Dioxide 28 mmol/L (22-30); Chloride 100 mmol/L (98-107); Estimated Glomerular Filt Rate > 60; Glucose 117 mg/dL (65-105); Potassium 3.8 mmol/L (3.4-5.0); Sodium 137 mmol/L (137-145)
== END 2020-10-04 11:54 | disposition home or self-care (01) ==
PROVIDERS: PCP Family Medicine; Visit Provider Surgery
DX: R53.83 Other fatigue (principal); C18.7 Malignant neoplasm of sigmoid colon; R63.0 Anorexia; Z98.890 Other specified postprocedural states
CPT/HCPCS: 36415; 74019; 80053; 85027

== ENCOUNTER 2020-10-05 10:57 | Outpatient (CLI) | payer MEDICARE, SELFPAY ==
--- NOTE | ~2020-10-05 | CT_ITS ---
EXAMINATION: CT abdomen pelvis w con DATE: 10/05/2020 12:44 INDICATION: Abdominal pain. Leukocytosis. TECHNIQUE: Computed tomography (CT) of the abdomen and pelvis was performed with 100 mL Omnipaque-350 intravenous contrast. Automated exposure control and iterative reconstruction technique were employe d. The dose-length product was 833.78 mGy-cm. COMPARISON: 09/15/2020 FINDINGS: Lung bases are clear. Heart size is normal. No pericardial or pleural effusion. Small sliding-type hi atal hernia. Cholecystectomy clips at the gallbladder fossa. Liver, spleen, pancreas, bilateral adren al glands and right kidney are normal. Percutaneous nephrostomy tube with loop formed in the left chelita al pelvis. No hydronephrosis in either kidney. The left ureter deviates laterally from the normal exp ected course appearing to terminate along the posterolateral margin of the left psoas muscle at the l evel of L4. Postoperative changes of prior distal partial colectomy with anastomosis in the pelvis. T here is some inflammatory stranding surrounding the anastomosis as well as a 1.6 cm loculated gas col lection. Increase in size and 8.8 x 5.2 x 7.0 cm loculated retroperitoneal fluid collection along the lateral margin of the right psoas muscle which demonstrates greater than simple fluid attenuation mo st consistent with either hematoma/seroma or abscess. This previously measured 7.5 x 2.2 x 4.9 cm. No evident active contrast extravasation. There is only minimal stranding along a small portion of the margin of the fluid collection which would argue against abscess with significant inflammation. No di lated bowel to suggest obstruction. Appendix is normal. Subtle likely inflammatory groundglass opacit y in the small bowel mesentery of the left lower quadrant and left pelvis. Small amount of nonloculat ed free fluid in the cul-de-sac. Decompressed bladder, uterus and bilateral adnexa are unremarkable. No pathologically enlarged abdominal or pelvic lymphadenopathy. Infraumbilical midline surgical wound . Moderate lumbar spondylosis with change of prior L4-S1 posterior spinal fusion with bilateral verti genesis esme and pedicle screw fixation. Chronic indolent appearing lytic lesion with thin sclerotic richard ns and a couple coarsened trabecula in the L1 vertebral body without significant change in size since MRI dated 05/07/2007 most likely representing a hemangioma. IMPRESSION: 1. Postoperative changes of recent sigmoidectomy and reanastomosis with small amount of extraluminal gas in the vicinity of the anastomosis suggesting anastomotic leak. 2. Interval increase in size of a loculated complex right retroperitoneal fluid collection currently measuring 8.8 x 5.2 x 7.0 cm which could represent either a hematoma/seroma or abscess. Favor the for rohith given the relative paucity of inflammatory stranding along the margins of much of the fluid colle ction. 3. Previously placed nephrostomy tubes with loops formed in the left renal pelvis with no hydronephro sis. This was placed for reported left ureteral injury with the proximal margin of the likely transec марина left ureter positioned in the paracolic gutter along the posterolateral margin of the psoas muscl e at the level of L4. 4. Small sliding-type hiatal hernia. Reviewed, dictated and finalized at location A. IMPRESSION: 1. Postoperative changes of recent sigmoidectomy and reanastomosis with small a mount of extraluminal gas in the vicinity of the anastomosis suggesting anastom otic leak. 2. Interval increase in size of a loculated complex right retroperitoneal fluid collection currently measuring 8.8 x 5.2 x 7.0 cm which could represent either a hematoma/seroma or abscess. Favor the former given the relative paucity of i nflammatory stranding along the margins of much of th
== END 2020-10-05 10:58 | disposition home or self-care (01) ==
PROVIDERS: PCP Family Medicine; Visit Provider Surgery
DX: R10.9 Unspecified abdominal pain (principal); Z90.49 Acquired absence of other specified parts of digestive tract; Z96.0 Presence of urogenital implants; K44.9 Diaphragmatic hernia without obstruction or gangrene
CPT/HCPCS: 74177; Q9967

== ENCOUNTER 2020-10-07 14:40 | Inpatient (IN) | payer MEDICARE, SELFPAY ==
[2020-10-07] VITALS (24 sets, daily range): BP systolic 106–158; BP diastolic 54–74; PULSE 73–94; RESP 13–23; TEMP 36.6–36.7; O2SAT 97–100
--- NOTE | ~2020-10-07 | CT_ITS ---
EXAMINATION: CT abdomen pelvis w con EXAM DATE: 10/07/2020 19:40 INDICATION: Nausea vomiting, history colon cancer and resection. Right groin pain. TECHNIQUE: Spiral CT of the abdomen and pelvis was performed following intravenous injection of 100 m L Omnipaque 350. Axial, coronal and sagittal images of the abdomen and pelvis were reviewed. The do se-length product (DLP) for this examination was 1093.14 mGy-cm. The exposure was tailored according to patient size (auto mA exposure control), and iterative reconstruction (ASIR) was used as addition al dose reduction technique. Comparison is made to prior examination from 10/05/2020. FINDINGS: There is a fluid collection with thin enhancing wall in the right paraspinal location, post erior to the right iliopsoas muscle from the L4 level into the pelvis. This region measures 5 x 8 x 8 cm, unchanged, with differential diagnosis including abscess, postoperative hematoma seroma. There i s a loop of small bowel which is contiguous to this anteriorly, but there is potential window for per cutaneous drainage. Rectosigmoid anastomosis. Small sliding gastroesophageal hiatal hernia. No free intraperitoneal air o r small bowel obstruction. Left-sided nephrostomy tube in position, with the transected left ureter taking a posterior course, discontinuity. No hydronephrosis. There is small amount of free pelvic flu id. Uterus and bladder unremarkable. The liver, spleen, adrenal glands and pancreas are unremarkable. Gallbladder is unremarkable. No bi liary obstruction. There is no retroperitoneal or pelvic lymphadenopathy. The heart is normal in size. There are no pericardial or pleural effusions. The lung bases are unre markable. Fusion L4-S1. IMPRESSION: 1. Fluid collection posterior to the right iliopsoas muscle, could be abscess or postoperative hemat yuan/seroma, unchanged. 2. Discontinuous left ureter. Nephrostomy in position. Reviewed, dictated and finalized at location A. IMPRESSION: 1. Fluid collection posterior to the right iliopsoas muscle, could be abscess or postoperative hematoma/seroma, unchanged. 2. Discontinuous left ureter. Nephrostomy in position.
--- NOTE | ~2020-10-07 | CT_ITS ---
EXAMINATION: CT guide absc cath placement DATE: 10/08/2020 13:55 INDICATION: Right retroperitoneal abscess. TECHNIQUE: The procedure including the risks, benefits, and alternatives was discussed with the patie nt. Risks discussed included bleeding and infection. The patient understood the risks and benefits an d agreed to proceed. The patient was confirmed to be receiving appropriate antibiotic coverage. The skin overlying the abdomen was prepped and draped in usual sterile fashion. Anesthetic was administe red with 1% lidocaine subcutaneously. An 18 gauge trochar needle was inserted into the right retroper itoneal abscess with CT guidance. The needle was exchanged over a wire for 6 Serbian and 8 Serbian dila tors and then for an 8.5 Serbian pigtail catheter. The catheter was stitched to the skin, and a steril e dressing was applied. The mA was adjusted according to patient size. Iterative reconstruction techn ique was employed. The dose-length product was 194.45 mGy-cm. There were no immediate complications. FINDINGS: CT images demonstrate the catheter within the fluid collection. 10 mL fluid was aspirated f or testing. IMPRESSION: 1. Successful CT-guided right retroperitoneal abscess drainage. 2. 10 mL [place], opaque fluid was sent for aerobic and anaerobic cultures. Reviewed, dictated and finalized at location A.
--- NOTE | 2020-10-07 14:55 | ED.NAVMDI ---
HPI - Nausea/Vomiting/Diarrhea General Chief complaint: Nausea/Vomiting/Diarrhea Stated complaint: Post Op Complications Time Seen by Provider: 10/07/20 14:53 Source: patient Mode of arrival: ambulatory Limitations: no limitations History of Present Illness HPI Narrative: Patient is a 65-year-old female complaining of nausea and vomiting, intermittent, accompanied by right lower quadrant pain started when she was discharged here last month, September 18 . Patient had colon resection surgery due to colon CA last month. Patient was sent here by Dr. Dixon's office for evaluation, make sure I do not have infection . Patient had a CT scan of her abdomen pelvis done 2 days ago. Patient denies any chest pain, shortness of breath, diarrhea, fever or chills. Related Data Home Medications Medication Instructions Recorded Confirmed omeprazole 20 mg PO HS 07/05/20 10/04/20 atorvastatin 10 mg PO HS 09/01/20 10/04/20 lisinopril 20 mg PO QAM 09/09/20 10/04/20 levothyroxine 88 mcg PO QAM 09/21/20 10/04/20 naproxen 500 mg PO BID PRN 09/21/20 10/04/20 Allergies Allergy/AdvReac Type Severity Reaction Status Date / Time No Known Allergies Allergy Verified 10/07/20 14:54 Review of Systems Review of Systems: All systems reviewed & are unremarkable except as noted in HPI and below Constitutional: Constitutional: Denies body ache(s), Denies chills, Denies excessive sweating, Denies fatigue, Denies fever(s), Denies headache(s), Denies lethargy, Denies malaise, Denies weakness and Denies weight loss Eyes: Eyes: Denies blurry vision, Denies change in vision and Denies loss of vision ENT: Denies dizziness, Denies ear discharge, Denies headache(s), Denies lip swelling, Denies epistaxis, Denies nasal congestion, Denies neck pain, Denies throat swelling and Denies tongue swelling Cardiovascular: Cardiovascular: Denies chest pain, Denies chest pain at rest, Denies chest pain with activity, Denies diaphoresis, Denies rapid heart rate, Denies edema, Denies irregular heart rhythm, Denies lightheadedness, Denies palpitations, Denies dyspnea and Denies dyspnea on exertion Respiratory: Respiratory: Denies chest congestion, Denies cough, Denies hemoptysis, Denies dyspnea and Denies dyspnea on exertion Gastrointestinal: Gastrointestinal: Denies abdominal pain, Denies melena, Denies hematochezia, Denies diarrhea and Denies hematemesis Musculoskeletal: Musculoskeletal: Denies abnormal gait, Denies deformity, Denies joint swelling, Denies limited range of motion, Denies neck pain and Denies numbness Neurologic: Denies Abnormal speech present, Denies abnormal gait, Denies confusion, Denies dizziness, Denies headache(s), Denies focal weakness, Denies loss of vision, Denies numbness, Denies Other visual disturbances, Denies Sensory deficit (Neuro) and Denies weakness Psychiatric: Psychiatric: Denies confusion, Denies depression, Denies auditory hallucinations, Denies homicidal ideation and Denies suicidal ideation Endocrine: Endocrine: Denies cold intolerance, Denies excessive sweating, Denies fatigue, Denies heat intolerance and Denies palpitations Hematologic/Lymphatic: Hematologic/Lymphatic: Denies easy bleeding and Denies easy bruising Allergic/Immunologic: Allergic/Immunologic: Denies lip swelling, Denies throat swelling and Denies tongue swelling PMFSH Past Medical History Medical History Dementia Diabetes Essential (primary) hypertension GERD (gastroesophageal reflux disease) Hydronephrosis Hyperlipidemia Hypothyroidism (acquired) Left ureteral injury Pre-op exam Sigmoid polyp Surgical History Surgical History H/O rotator cuff surgery H/O tubal ligation History of appendectomy History of cholecystectomy Previous back surgery S/P laparoscopic-assisted sigmoidectomy 09/09/20 Family History Family History (Reviewed 10/07/20 @ 14:59 by Howard
[2020-10-07] MEDS: LACTATED RINGERS 1,000 ML 999 ML IV CONT ×2 (15:44→19:16)
[2020-10-07] MEDS: ONDANSETRON INJ 4 MG/2 ML VIAL IV PUSH (15:44)
[2020-10-07 16:00] LABS: Basophils Absolute Auto 0.1 K/mm3 (0.0-0.1); Basophils Percent Auto 0.4 % (0.2-1.2); Eosinophils Absolute Auto 0.2 K/mm3 (0-0.3); Eosinophils Percent Auto 1.3 % (0-4.4); Hematocrit 33.2 % (37.0-47.0); Hemoglobin 10.8 g/dL (12.0-15.0); Immature Granulocyte Absolute 0.08 K/mm3 (0.00-0.031); Immature Granulocyte Percent A 0.6 % (0-0.5); Lymphocytes Absolute Auto 2.37 K/mm3 (0.9-3.2); Lymphocytes Percent Auto 16.6 % (18.3-44.2); Mean Corpuscular HGB Conc 32.5 g/dl (32-36); Mean Corpuscular Hemoglobin 28.6 pg (26-34); Mean Corpuscular Volume 88.1 fl (80-100); Mean Platelet Volume 9.8 fl (7.4-10.4); Monocytes Percent Auto 7.1 % (2.6-8.5); Neutrophils Absolute Auto 10.6 K/mm3 (1.3-6.7); Platelet Count Result 336 k/mm3 (150-375); Red Blood Count 3.77 M/mm3 (4.2-5.4); Red Cell Distribution Width 12.9 % (11.5-14.5); White Blood Count 14.3 K/mm3 (4.5-10.0)
[2020-10-07 16:10] LABS: Alanine Aminotransferase 15 U/L (4-35); Albumin Level 3.6 g/dL (3.5-5.1); Alkaline Phosphatase 93 U/L (38-126); Anion Gap 10 mmol/L (8-16); Aspartate Amino Transferase 19 U/L (14-36); Bilirubin,Total 0.5 mg/dL (0.2-1.3); Blood Urea Nitrogen 6 mg/dL (7-17); Calcium 8.9 mg/dL (8.4-10.2); Carbon Dioxide 25 mmol/L (22-30); Chloride 99 mmol/L (98-107); Estimated CRCL calculation 64 ml/min; Estimated Glomerular Filt Rate > 60; Glucose 110 mg/dL (65-105); Potassium 3.7 mmol/L (3.4-5.0); Sodium 134 mmol/L (137-145)
--- NOTE | 2020-10-07 21:32 | ADMGEN ---
This patient, Letty Irene, was admitted to [facility] Surg Room 301-01. Patient/family oriented to hospital policies and general routines including ID bracelet, bed and alarms, visiting hours, pain management, procedures, bathroom and other care routines, personal items, smoking policy, room service/diet, and visiting hours. Information on how to activate the Rapid Response Team has been discussed. Patient/Family are encouraged to report perceived risks to care and to ask questions if they do not understand what they are told or what they should do.
[2020-10-07] MEDS: LACTATED RINGERS 1,000 ML 125 ML IV CONT (21:53)
[2020-10-07] MEDS: HYDROmorphone HCL INJ (*CRX) 1 MG/ML SYR 0.5 MG IV PUSH (23:08)
[2020-10-07 23:37] LABS: Glucose Point of Care 111 mg/dl (65-105)
[2020-10-08] MEDS: LACTATED RINGERS 1,000 ML 125 ML IV CONT ×2 (05:42→15:02)
[2020-10-08 06:00] VITALS: BP 132/61; PULSE 86; RESP 18; TEMP 36.4; O2SAT 98
--- NOTE | 2020-10-08 10:09 | PM.IMHP ---
H&P: HPI History of Present Illness Date/Time: 10/08/20 10:09 Pt is a 65 y/o F s/p sigmoid colectomy complicated by L ureter injury and subsequent L nephrostomy tube presenting c persistent R lower abd/flank pain. Pt reports pain is constant but much worse c movement. Pt also reports associated N/V, poor appetite. Pt reports she has been having bowel fxn s issue. Pt denies f/c. Chief Complaint: abdominal pain, N/V Review of Systems Constitutional: Constitutional: Reports anorexia, Reports body ache(s), Denies chills, Reports fatigue, Denies fever(s), Denies increased appetite, Reports lethargy, Reports malaise, Denies night sweats, Reports poor appetite, Reports weakness, Denies weight gain and Denies weight loss Eyes: Eyes: Reports no additional eye complaints ENT: Reports system reviewed and no additional complaints, except as documented Cardiovascular: Cardiovascular: Reports no additional cardiovascular complaints Respiratory: Respiratory: Reports no additional respiratory complaints Gastrointestinal: Gastrointestinal: Reports as per HPI, Reports abdominal pain, Denies change in bowel habits, Denies change in stool character, Denies constipation, Denies GI cramping, Denies diarrhea, Reports loose stools, Reports nausea and Reports vomiting Genitourinary: Genitourinary: Reports no additional female genitourinary complaints Musculoskeletal: Musculoskeletal: Reports no additional musculoskeletal complaints Integumentary/Breasts: Skin/Breast: Reports system reviewed and no additional complaints, except as docu Neurologic: Reports system reviewed and no additional complaints, except as documented Psychiatric: Psychiatric: Reports no additional psychiatric complaints Endocrine: Endocrine: Reports no additional endocrine complaints Hematologic/Lymphatic: Hematologic/Lymphatic: Reports no additional hematologic/lymphatic complaints Allergic/Immunologic: Allergic/Immunologic: Reports no additional allergic/immunologic complaints [facility] Past Medical History Medical History Dementia Diabetes Essential (primary) hypertension GERD (gastroesophageal reflux disease) Hydronephrosis Hyperlipidemia Hypothyroidism (acquired) Left ureteral injury Pre-op exam Sigmoid polyp Surgical History Surgical History H/O rotator cuff surgery H/O tubal ligation History of appendectomy History of cholecystectomy Previous back surgery S/P laparoscopic-assisted sigmoidectomy 09/09/20 Family History Family History Father Hypertension Family history of malignant neoplasm of urinary bladder Mother Hypertension, Onset Age: 50 Heart attack Sibling Hypertension Family history of elevated blood lipids Family history of cardiovascular disease Malignant neoplasm of prostate Grandparent Heart disease Cancer Hypertension Social History Social History Smoking status: Former smoker Second hand tobacco smoke exposure: No Smoking end date: 04/09/71 Additional smoking assessment comments: STATES SOCIAL SMOKER/6MONTHS-1YR/QUIT 1972 Alcohol intake: never Substance use: never Substance use type: does not use Additional living arrangements comments: [facility] Gender identity (if verbalized by the patient): Female Spiritual care concerns: No Meds Home Medications and Allergies Home Medications Medication Instructions Recorded Confirmed Type metformin 500 mg tablet,extended 500 mg PO QPM #90 tablet 06/25/20 10/07/20 Rx release 24 hr omeprazole 20 mg PO HS 07/05/20 10/07/20 History tramadol 50 mg tablet 50 mg PO Q6H PRN #40 tablet 07/30/20 10/07/20 Rx atorvastatin 10 mg PO HS 09/01/20 10/07/20 History lisinopril 20 mg PO QAM 09/09/20 10/07/20 History levothyroxine 8
[2020-10-08] MEDS: ONDANSETRON INJ 4 MG/2 ML VIAL IV PUSH (10:55)
[2020-10-08 11:23] LABS: INR 1.2; Prothrombin Time 14.8 Seconds (11.1-14.7)
[2020-10-08 11:24] LABS: Partial Thromboplastin Time 32.2 SECONDS (22.3-36.8)
[2020-10-08 11:33] VITALS: BMI 32.5
[2020-10-08 12:19] VITALS: O2SAT 98
--- NOTE | 2020-10-08 13:33 | PCNSR ---
On 10/08/20, the student, Jessica Reagan, provided care and completed [facility] documentation on this patient. I have reviewed the student's documentation and agree with the findings.
[2020-10-08 15:00] VITALS: BP 141/52; PULSE 84; RESP 12; TEMP 36.4; O2SAT 98
[2020-10-08] MEDS: HYDROcodone/acetaminophen (*CRX) 5-325 MG TABLET 1 TAB PO ×2 (15:05→21:27)
[2020-10-08 20:43] VITALS: BP 118/63; PULSE 81; RESP 16; TEMP 36.8; O2SAT 96
[2020-10-08 20:44] VITALS: BMI 32.5
[2020-10-09] MEDS: LACTATED RINGERS 1,000 ML 125 ML IV CONT ×2 (02:19→11:47)
[2020-10-09 05:49] LABS: Hemoglobin 9.8 g/dL (12.0-15.0); Mean Corpuscular HGB Conc 32.7 g/dl (32-36); Mean Corpuscular Hemoglobin 28.7 pg (26-34); Mean Platelet Volume 9.6 fl (7.4-10.4); Platelet Count Result 306 k/mm3 (150-375); Red Blood Count 3.41 M/mm3 (4.2-5.4); Red Cell Distribution Width 12.8 % (11.5-14.5); White Blood Count 12.5 K/mm3 (4.5-10.0)
[2020-10-09 06:00] VITALS: BP 129/65; PULSE 83; RESP 16; TEMP 37.1; O2SAT 98
[2020-10-09 06:04] LABS: Anion Gap 5 mmol/L (8-16); Blood Urea Nitrogen 3 mg/dL (7-17); Calcium 8.6 mg/dL (8.4-10.2); Carbon Dioxide 30 mmol/L (22-30); Chloride 100 mmol/L (98-107); Estimated CRCL calculation 56 ml/min; Estimated Glomerular Filt Rate > 60; Glucose 107 mg/dL (65-105); Potassium 4.2 mmol/L (3.4-5.0); Sodium 135 mmol/L (137-145)
[2020-10-09 14:00] VITALS: BP 122/42; PULSE 94; RESP 16; TEMP 37.9; O2SAT 96
[2020-10-09] MEDS: HYDROcodone/acetaminophen (*CRX) 5-325 MG TABLET 1 TAB PO ×2 (15:00→20:23)
--- NOTE | 2020-10-09 15:58 | PM.PNGS ---
Progress Note: A&P Assessment and Plan (1) Retroperitoneal fluid collection: Onset Date: ~09/2020 Code(s): R18.8 - Other ascites Status: Acute Assessment and Plan: Six S full percutaneous drainage by CT scan yesterday with significant slightly grayish to yellow cloudy drainage from the drain. Patient is does feel better. (2) Nausea & vomiting: Onset Date: Unknown Qualifiers: Vomiting Intractability: non-intractable Vomiting type: unspecified Qualified Code(s): R11.2 - Nausea with vomiting, unspecified Code(s): R11.2 - Nausea with vomiting, unspecified Status: Acute Assessment and Plan: Seems to be somewhat improves patient as tolerated her diet today (3) Abdominal pain: Onset Date: Unknown Qualifiers: Abdominal location: unspecified location Qualified Code(s): R10.9 - Unspecified abdominal pain Code(s): R10.9 - Unspecified abdominal pain Status: Acute Assessment and Plan: patient thinks it somewhat improved after drainage. (4) Elevated WBC count: Onset Date: Unknown Code(s): D72.829 - Elevated white blood cell count, unspecified Status: Acute Assessment and Plan: Improved. Down to 12,000 today will repeat CBC in a.m. and continue IV antibiotics (5) Poor appetite: Code(s): R63.0 - Anorexia Status: Acute Assessment and Plan: patient feels this is improved will continue to advance diet. (6) Hyperlipidemia: Qualifiers: Hyperlipidemia type: unspecified Qualified Code(s): E78.5 - Hyperlipidemia, unspecified Code(s): E78.5 - Hyperlipidemia, unspecified Status: Acute Assessment and Plan: Patient will resume home medications for this (7) Essential (primary) hypertension: Code(s): I10 - Essential (primary) hypertension Status: Chronic Assessment and Plan: patient will resume all home medications for this (8) Malignant neoplasm of sigmoid colon: Code(s): C18.7 - Malignant neoplasm of sigmoid colon Status: Chronic Assessment and Plan: patient had resection for this but is still recovering from her surgical procedure. Has not received any further treatment at this time. (9) BMI 35.0-35.9,adult: Code(s): Z68.35 - Body mass index [BMI] 35.0-35.9, adult Status: Chronic Assessment and Plan: will encourage patient to remain on a high-protein low-fat diet for this and try to lose weight Subjective Subjective Date/Time Seen: 10/09/20 13:58 Patient lying in bed when I entered the room. She states she does feel like her abdominal pain is little less now that she has had the percutaneous drainage. She states that there was a good amount of yellowish cloudy fluid that came out the drain overnight. When I checked of the drain was decompressed so I reconfirmed prior stent. She also has a nephrostomy tube on the left this is draining clear urine. She is tolerating her diet again now. She states that she probably will be able to manage again at home tomorrow so will think about discharge tomorrow if possible. Review of Systems Constitutional: Constitutional: Reports no additional constitutional complaints ENT: Reports other (Mucous Membranes moist.) Cardiovascular: Cardiovascular: Denies dyspnea Respiratory: Respiratory: Denies pain on inspiration and Denies dyspnea Musculoskeletal: Musculoskeletal: Reports other (No calf swelling or edema) Integumentary/Breasts: Skin/Breast: Reports system reviewed and no additional complaints, except as docu Exam Const: General: cooperative, no acute distress, alert and awake Orientation/consciousness: patient oriented x3 HENMT: Mouth: Yes moist mucous membranes Neck: Neck: normal visual inspection Chest: Chest palpation & inspection: normal inspection of the chest Resp: Effort & Inspection: normal respiratory effort Auscultatio
[2020-10-09 21:41] VITALS: BP 124/57; PULSE 81; RESP 18; TEMP 37.2; O2SAT 95
[2020-10-10 05:53] VITALS: BP 113/63; PULSE 87; RESP 18; TEMP 36.8; O2SAT 94
[2020-10-10 06:12] LABS: Hemoglobin 9.6 g/dL (12.0-15.0); Mean Corpuscular HGB Conc 33.1 g/dl (32-36); Mean Corpuscular Hemoglobin 28.7 pg (26-34); Mean Corpuscular Volume 86.8 fl (80-100); Mean Platelet Volume 9.7 fl (7.4-10.4); Platelet Count Result 318 k/mm3 (150-375); Red Blood Count 3.34 M/mm3 (4.2-5.4); Red Cell Distribution Width 12.7 % (11.5-14.5)
[2020-10-10 06:30] LABS: Anion Gap 8 mmol/L (8-16); Calcium 8.2 mg/dL (8.4-10.2); Carbon Dioxide 26 mmol/L (22-30); Chloride 101 mmol/L (98-107); Estimated CRCL calculation 64 ml/min; Estimated Glomerular Filt Rate > 60; Glucose 110 mg/dL (65-105); Potassium 3.5 mmol/L (3.4-5.0); Sodium 135 mmol/L (137-145)
[2020-10-10 07:14] LABS: Blood Urea Nitrogen < 2 mg/dL (7-17)
--- NOTE | 2020-10-10 09:43 | PM.DS ---
DS: Admitting Diagnosis Admitting Diagnosis Admitting Diagnosis: abdominal pain retroperitoneal abscess DS: Discharge Diagnosis Discharge Diagnosis (1) Retroperitoneal fluid collection: Onset Date: ~09/2020 Code(s): R18.8 - Other ascites Status: Acute Assessment and Plan: this was the main reason for the patient's admission. The day after admission she had a successful CT-guided drainage of the retroperitoneum abscess which initially on Gram stain is showing gram-negative rods. Patient was given IV antibiotics during her admission and will route resume oral antibiotics using Augmentin and Flagyl upon discharge. (2) Nausea & vomiting: Onset Date: Unknown Qualifiers: Vomiting Intractability: non-intractable Vomiting type: unspecified Qualified Code(s): R11.2 - Nausea with vomiting, unspecified Code(s): R11.2 - Nausea with vomiting, unspecified Status: Acute Assessment and Plan: This resolved as the patient was in the hospital. She is tolerating a diabetic diet upon discharge (3) Abdominal pain: Onset Date: ~09/2020 Qualifiers: Abdominal location: unspecified location Qualified Code(s): R10.9 - Unspecified abdominal pain Code(s): R10.9 - Unspecified abdominal pain Status: Acute Assessment and Plan: abdominal pain has resolved status post percutaneous drain placement (4) Elevated WBC count: Onset Date: Unknown Code(s): D72.829 - Elevated white blood cell count, unspecified Status: Acute Assessment and Plan: WBC down to almost normal now 2 days status post percutaneous drainage of the retroperitoneal abscess (5) Poor appetite: Onset Date: ~09/2020 Code(s): R63.0 - Anorexia Status: Acute Assessment and Plan: improved status post drainage of retroperitoneal abscess (6) Left ureteral injury: Onset Date: ~09/2020 Qualifiers: Encounter type: subsequent encounter Qualified Code(s): S37.10XD - Unspecified injury of ureter, subsequent encounter Code(s): S37.10XA - Unspecified injury of ureter, initial encounter Status: Acute Assessment and Plan: patient has a follow-up appoint with Dr. skinner on October 20 (7) Tubular adenoma of colon: Code(s): D12.6 - Benign neoplasm of colon, unspecified Status: Acute Assessment and Plan: this was the reason for her sigmoidectomy. Also found of the time was some mild chronic diverticulitis (see path report). Therefore, patient will probably need no further treatment for any colon problems. DS: Summary Hospital Course Reason for hospitalization: Persistent nausea loss of appetite and elevated white count. Patient found on CT scan to have retroperitoneal fluid collection. Hospital Course: Persistent nausea loss of appetite and elevated white count. Patient found on CT scan to have retroperitoneal fluid collection. Later in this admission this was successfully drained base percutaneous CT guidance. Patient is improving was far as pain and appetite. She will be discharged today with plans for follow-up after continued antibiotic treatment as an outpatient. Cultures are not back from the fluid obtained at the time of her surgery she has a drain in place which she has been taught how to empty. She will keep track of the amount and emptied each day. She will return to the office to see Dr. Dixon 1 week. Patient's diet was successfully advanced after percutaneous drainage. Initial Gram stain is showing gram-negative bacteria. She has Augmentin and metronidazole home to continue taking upon discharge. Time spent discussing smoking cessation with patient: more than 10 minutes Status at Discharge Cognitive/behavioral status at discharge: Back to normal Functional status at discharge: independent ambulation Time Spent with Patient Time attestation: Total time spent providing and/or c
== END 2020-10-10 11:15 | disposition home or self-care (01) | DRG 394 ==
LOC: ANHED 20:33 → ANH3MEDSUR 21:00
PROVIDERS: Admitting Provider Surgery; Emergency Provider Emergency Medicine; PCP Family Medicine; Visit Provider Surgery
DX: K91.89 Other postprocedural complications and disorders of digestive system (principal); K68.11 Postprocedural retroperitoneal abscess; R18.8 Other ascites; C18.7 Malignant neoplasm of sigmoid colon; B96.6 Bacteroides fragilis [B. fragilis] as the cause of diseases classified elsewhere; F03.90 Unspecified dementia, unspecified severity, without behavioral disturbance, psychotic disturbance, mood disturbance, and anxiety; K21.9 Gastro-esophageal reflux disease without esophagitis; E11.9 Type 2 diabetes mellitus without complications; I10 Essential (primary) hypertension; E78.5 Hyperlipidemia, unspecified; E03.9 Hypothyroidism, unspecified; D72.829 Elevated white blood cell count, unspecified; R63.0 Anorexia; E66.9 Obesity, unspecified; Z93.6 Other artificial openings of urinary tract status; Z68.32 Body mass index [BMI] 32.0-32.9, adult; Z90.49 Acquired absence of other specified parts of digestive tract; Z87.891 Personal history of nicotine dependence
CPT/HCPCS: 36415; 74177; 75989; 80048; 80053; 82948; 83605; 85025; 85027; 85610; 85730; 87070; 87075; 87076; 87205; 96361; 96365; 96374; 96375; 96376; 99285; A9270; C1769; G0378; J1170; J2405; J2543; J7120; Q9967

== ENCOUNTER 2020-10-14 16:07 | Outpatient (NON) | payer MEDICARE, SELFPAY ==
[2020-10-14 17:05] LABS: Hematocrit 36.9 % (37.0-47.0); Hemoglobin 11.4 g/dL (12.0-15.0); Mean Corpuscular HGB Conc 30.9 g/dl (32-36); Mean Corpuscular Hemoglobin 28.5 pg (26-34); Mean Corpuscular Volume 92.3 fl (80-100); Platelet Count Result 446 k/mm3 (150-375); Red Cell Distribution Width 13.5 % (11.5-14.5); White Blood Count 11.9 K/mm3 (4.5-10.0)
[2020-10-14 18:12] LABS: Anion Gap 13 mmol/L (8-16); Blood Urea Nitrogen 5 mg/dL (7-17); Carbon Dioxide 25 mmol/L (22-30); Chloride 100 mmol/L (98-107); Estimated Glomerular Filt Rate > 60; Glucose 122 mg/dL (65-105); Potassium 3.4 mmol/L (3.4-5.0); Sodium 138 mmol/L (137-145)
== END 2020-10-14 16:08 | disposition home or self-care (01) ==
LOC: HOME HLTH 16:09
PROVIDERS: PCP Family Medicine; Visit Provider Surgery
DX: Z48.3 Aftercare following surgery for neoplasm (principal); C18.7 Malignant neoplasm of sigmoid colon; N17.9 Acute kidney failure, unspecified; S37.10XD Unspecified injury of ureter, subsequent encounter; D64.9 Anemia, unspecified; E11.9 Type 2 diabetes mellitus without complications
CPT/HCPCS: 80048; 85027

== ENCOUNTER 2020-11-18 09:35 | Outpatient (CLI) | payer MEDICARE, SELFPAY ==
[2020-11-18 10:28] LABS: Hematocrit 38.3 % (37.0-47.0); Mean Corpuscular HGB Conc 31.3 g/dl (32-36); Mean Corpuscular Hemoglobin 28.6 pg (26-34); Mean Corpuscular Volume 91.2 fl (80-100); Mean Platelet Volume 10.1 fl (7.4-10.4); Platelet Count Result 339 k/mm3 (150-375); Red Cell Distribution Width 13.6 % (11.5-14.5); White Blood Count 9.4 K/mm3 (4.5-10.0)
== END 2020-11-18 09:36 | disposition home or self-care (01) ==
LOC: ANHLAB 09:37
PROVIDERS: PCP Family Medicine; Visit Provider Surgery
DX: R11.0 Nausea (principal); Z51.81 Encounter for therapeutic drug level monitoring; Z79.899 Other long term (current) drug therapy
CPT/HCPCS: 36415; 85027

== ENCOUNTER 2020-11-24 14:37 | Outpatient (CLI) | payer MEDICARE, SELFPAY ==
--- NOTE | ~2020-11-24 | CT_ITS ---
EXAMINATION: CT abdomen pelvis w con DATE: 11/24/2020 13:04 INDICATION: Retroperitoneal abscess. TECHNIQUE: Computed tomography (CT) of the abdomen and pelvis was performed with 100 mg Omnipaque 350 intravenous contrast. Automated exposure control and iterative reconstruction technique were employe d. The dose-length product was 1214.13 mGy-cm. COMPARISON: CT abdomen and pelvis 10/07/2020 FINDINGS: The visualized portions of the lung bases demonstrate minimal atelectasis on the right. No pleural effusion. The heart size is normal. No pericardial effusion. There is a small sliding hiatal hernia. The liver demonstrates focal steatosis in the gallbladder fossa and adjacent to the falciform ligament. There are changes of cholecystectomy. The spleen, pancreas, adrenal glands, and right kidn ey are normal. There is a left-sided percutaneous nephrostomy tube in expected position. A 10 cm span of the mid left ureter is not visualized. There is an anastomosis in the rectosigmoid. There is a fi stula from the anastomosis to a 2.1 x 1.4 x 1.5 cm presacral abscess containing fluid and gas. There is fat stranding in the presacral region, consistent with inflammation. Again seen are areas of fat s tranding in the left upper quadrant and left lower quadrant, likely fat necrosis. The appendix is nor mal. There are no pathologically enlarged lymph nodes. There is physiologic fluid in the pelvis. Ther e is no residual abscess in right iliopsoas groove. There are changes of anterior and posterior fusio n procedures from L4 to S1. There is severe lumbar spondylosis. There is a hemangioma in L1 vertebral body. IMPRESSION: 1. Fistula from the rectosigmoid anastomosis to a 2.1 x 1.4 x 1.5 cm presacral abscess, worsened from 10/07/20. 2. Resolved abscess in right iliopsoas groove status post drain removal. 3. Percutaneous left nephrostomy tube in expected position. Left ureteral injury with 10 cm span of t he mid ureter not visualized. Reviewed, dictated and finalized at location B. IMPRESSION: 1. Fistula from the rectosigmoid anastomosis to a 2.1 x 1.4 x 1.5 cm presacral abscess, worsened from 10/07/20. 2. Resolved abscess in right iliopsoas groove status post drain removal. 3. Percutaneous left nephrostomy tube in expected position. Left ureteral injur y with 10 cm span of the mid ureter not visualized.
[2020-11-24 12:58] LABS: Estimated Glomerular Filt Rate > 60
[2020-11-24 15:06] LABS: Basophils Absolute Auto 0.1 K/mm3 (0.0-0.1); Basophils Percent Auto 0.4 % (0.2-1.2); Eosinophils Absolute Auto 0.4 K/mm3 (0-0.3); Eosinophils Percent Auto 2.9 % (0-4.4); Hematocrit 38.8 % (37.0-47.0); Hemoglobin 12.3 g/dL (12.0-15.0); Immature Granulocyte Absolute 0.04 K/mm3 (0.00-0.031); Immature Granulocyte Percent A 0.3 % (0-0.5); Lymphocytes Percent Auto 16.4 % (18.3-44.2); Mean Corpuscular HGB Conc 31.7 g/dl (32-36); Mean Corpuscular Hemoglobin 28.7 pg (26-34); Mean Corpuscular Volume 90.7 fl (80-100); Mean Platelet Volume 10.1 fl (7.4-10.4); Monocytes Absolute Auto 0.7 K/mm3 (0.1-0.6); Monocytes Percent Auto 5.6 % (2.6-8.5); Neutrophils Absolute Auto 9.5 K/mm3 (1.3-6.7); Neutrophils Percent Auto 74.4 % (45.5-73.1); Platelet Count Result 323 k/mm3 (150-375); Red Blood Count 4.28 M/mm3 (4.2-5.4); Red Cell Distribution Width 13.6 % (11.5-14.5); White Blood Count 12.8 K/mm3 (4.5-10.0)
[2020-11-24 15:16] LABS: Anion Gap 8 mmol/L (8-16); Blood Urea Nitrogen 9 mg/dL (7-17); Calcium 9.1 mg/dL (8.4-10.2); Carbon Dioxide 26 mmol/L (22-30); Chloride 104 mmol/L (98-107); Estimated Glomerular Filt Rate > 60; Glucose 97 mg/dL (65-110); Potassium 3.7 mmol/L (3.4-5.0); Sodium 138 mmol/L (137-145)
== END 2020-11-24 14:38 | disposition home or self-care (01) ==
PROVIDERS: Physician Assistant; Surgery; PCP Family Medicine; Visit Provider Surgery
DX: R11.10 Vomiting, unspecified (principal); Z87.898 Personal history of other specified conditions; D72.829 Elevated white blood cell count, unspecified; S37.10XA Unspecified injury of ureter, initial encounter; N13.30 Unspecified hydronephrosis; N17.9 Acute kidney failure, unspecified; R10.9 Unspecified abdominal pain; K68.19 Other retroperitoneal abscess; Z93.6 Other artificial openings of urinary tract status
CPT/HCPCS: 74177; 80048; 85025; Q9967

== ENCOUNTER 2020-11-25 08:10 | Outpatient (CLI) | payer MEDICARE, SELFPAY ==
--- NOTE | ~2020-11-25 | XR_ITS ---
XR enema water soluble 11/25/2020 09:15 INDICATION: Rectosigmoid fistula TECHNIQUE: Examination of the colon utilizing retrograde water-soluble contrast technique. 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 There is obstruction of flow of contrast more proximally with m oderate retained fecal material in the mid and distal colon. There are cholecystectomy clips. There i s a left-sided percutaneous nephrostomy catheter. There are fusion changes at the lumbosacral junctio n. 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 Reviewed, dictated and finalized at location A. 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
== END 2020-11-25 08:11 | disposition home or self-care (01) ==
LOC: ANHIMG 08:13
PROVIDERS: PCP Family Medicine; Visit Provider Surgery
DX: C18.7 Malignant neoplasm of sigmoid colon (principal); Z87.898 Personal history of other specified conditions; K56.699 Other intestinal obstruction unspecified as to partial versus complete obstruction
CPT/HCPCS: 74270

== ENCOUNTER 2020-12-01 08:09 | Outpatient (CLI) | payer MEDICARE, SELFPAY ==
[2020-12-01 08:27] LABS: Basophils Absolute Auto 0.1 K/mm3 (0.0-0.1); Eosinophils Absolute Auto 0.4 K/mm3 (0-0.3); Eosinophils Percent Auto 4.7 % (0-4.4); Hematocrit 36.1 % (37.0-47.0); Hemoglobin 11.3 g/dL (12.0-15.0); Immature Granulocyte Absolute 0.01 K/mm3 (0.00-0.031); Immature Granulocyte Percent A 0.1 % (0-0.5); Lymphocytes Percent Auto 25.2 % (18.3-44.2); Mean Corpuscular HGB Conc 31.3 g/dl (32-36); Mean Corpuscular Hemoglobin 28.4 pg (26-34); Mean Corpuscular Volume 90.7 fl (80-100); Monocytes Absolute Auto 0.5 K/mm3 (0.1-0.6); Monocytes Percent Auto 6.2 % (2.6-8.5); Neutrophils Percent Auto 62.8 % (45.5-73.1); Platelet Count Result 316 k/mm3 (150-375); Red Blood Count 3.98 M/mm3 (4.2-5.4); Red Cell Distribution Width 13.6 % (11.5-14.5)
== END 2020-12-01 08:10 | disposition home or self-care (01) ==
PROVIDERS: PCP Family Medicine; Visit Provider Surgery
DX: D72.829 Elevated white blood cell count, unspecified (principal)
CPT/HCPCS: 36415; 85025

== ENCOUNTER 2020-12-15 14:01 | Outpatient (CLI) | payer MEDICARE, SELFPAY ==
--- NOTE | ~2020-12-15 | CT_ITS ---
EXAMINATION: CT abdomen pelvis wo con DATE: 12/15/2020 14:30 INDICATION: Personal history of abdominal abscess. TECHNIQUE: Computed tomography (CT) of the abdomen and pelvis was performed without intravenous contr ast. Automated exposure control and iterative reconstruction technique were employed. The dose-length product was 746.31 mGy-cm. COMPARISON: CT abdomen and pelvis 11/24/2020 FINDINGS: The visualized portions of the lung bases are clear without pneumonia or pleural effusion. The heart size is normal. No pericardial effusion. There is a small sliding hiatal hernia. The liver is normal. There are changes of cholecystectomy. The spleen, pancreas, adrenal glands, and kidneys ar e normal. There is a left-sided percutaneous nephrostomy tube in expected position. A 10 cm span of t he mid left ureter is not visualized. There is an anastomosis in the rectosigmoid with fistula to the presacral region, there is inflammation and a focus of gas. No drainable fluid. There are no dilated loops of bowel. There are no pathologically enlarged lymph nodes. There is no free intraperitoneal f luid. Again seen are areas of fat stranding in the left upper quadrant and left lower quadrant, consi stent with fat necrosis. There are changes of anterior and posterior fusion procedures from L4 to S1. There is a hemangioma in L1 vertebral body. There is severe lumbar spondylosis. IMPRESSION: 1. Fistula from the rectosigmoid anastomosis to an area of inflammation in the presacral region with mild improvement. No drainable fluid. 2. Percutaneous left nephrostomy tube in expected position. Left ureteral injury with 10 cm of the mi d ureter not visualized. Reviewed, dictated and finalized at location A. IMPRESSION: 1. Fistula from the rectosigmoid anastomosis to an area of inflammation in the presacral region with mild improvement. No drainable fluid. 2. Percutaneous left nephrostomy tube in expected position. Left ureteral injur y with 10 cm of the mid ureter not visualized.
[2020-12-15 15:35] LABS: Hematocrit 39.4 % (37.0-47.0); Hemoglobin 12.4 g/dL (12.0-15.0); Mean Corpuscular HGB Conc 31.5 g/dl (32-36); Mean Corpuscular Hemoglobin 28.4 pg (26-34); Mean Corpuscular Volume 90.4 fl (80-100); Mean Platelet Volume 10.3 fl (7.4-10.4); Platelet Count Result 278 k/mm3 (150-375); Red Blood Count 4.36 M/mm3 (4.2-5.4)
== END 2020-12-15 14:02 | disposition home or self-care (01) ==
PROVIDERS: PCP Family Medicine; Visit Provider Surgery
DX: Z87.898 Personal history of other specified conditions (principal); K63.2 Fistula of intestine; Z93.6 Other artificial openings of urinary tract status
CPT/HCPCS: 36415; 74176; 85027

== ENCOUNTER 2021-01-03 10:12 | Outpatient (CLI) | payer MEDICARE, SELFPAY ==
[2020-12-28 09:28] VITALS: BMI 31.0
--- NOTE | ~2021-01-03 | XR_ITS ---
EXAMINATION: XR nephrostomy tube change DATE: 01/03/2021 15:26 INDICATION: Hydronephrosis TECHNIQUE: The procedure including the risks, benefits, and alternatives was discussed with the patie nt. Risks discussed included bleeding, infection, allergic reaction and loss of access necessitating new percutaneous nephrostomy tube placement. The patient understood the risks and benefits and agreed to proceed. The patient was given 1 g of Ancef IV for prophylaxis. The skin overlying the left kidne y was prepped and draped in usual sterile fashion. Anesthetic was administered with 1% lidocaine subc utaneously. The existing left nephrostomy tube was injected with contrast and then fixation string cut. With some difficulty a wire was advanced thr ough the catheter and exchange for a new 8.5 Thai pigtail catheter under fluoroscopic guidance. Position was confirmed with injection of an additional small am ount of contrast. The catheter was stitched to the skin. Antibiotic ointment and a sterile dressing w ere applied. There were no immediate complications. A total of 5 fluoroscopic images recorded. The am ount of fluoroscopy time used during this procedure was 2.7 minutes. Total DAP was 19.323 mGycm^2 FINDINGS: Fluoroscopy images demonstrate the new left percutaneous nephrostomy tube and contrast in t he left renal pelvis. IMPRESSION: Successful fluoroscopic guided left percutaneous nephrostomy tube exchange. Reviewed, dictated and finalized at location A.
[2021-01-03 10:56] LABS: Basophils Percent Auto 0.3 % (0.2-1.2); Eosinophils Absolute Auto 0.5 K/mm3 (0-0.3); Eosinophils Percent Auto 6.1 % (0-4.4); Hematocrit 40.6 % (37.0-47.0); Hemoglobin 12.8 g/dL (12.0-15.0); Immature Granulocyte Absolute 0.02 K/mm3 (0.00-0.031); Immature Granulocyte Percent A 0.2 % (0-0.5); Lymphocytes Absolute Auto 1.72 K/mm3 (0.9-3.2); Lymphocytes Percent Auto 19.8 % (18.3-44.2); Mean Corpuscular HGB Conc 31.5 g/dl (32-36); Mean Corpuscular Hemoglobin 28.7 pg (26-34); Mean Platelet Volume 10.3 fl (7.4-10.4); Monocytes Absolute Auto 0.5 K/mm3 (0.1-0.6); Neutrophils Absolute Auto 5.9 K/mm3 (1.3-6.7); Neutrophils Percent Auto 67.6 % (45.5-73.1); Platelet Count Result 249 k/mm3 (150-375); Red Blood Count 4.46 M/mm3 (4.2-5.4); Red Cell Distribution Width 13.7 % (11.5-14.5); White Blood Count 8.7 K/mm3 (4.5-10.0)
[2021-01-03 11:06] LABS: INR 0.9; Prothrombin Time 12.2 Seconds (11.1-14.7)
[2021-01-03 14:20] VITALS: BP 155/92; PULSE 75; RESP 20; O2SAT 98
[2021-01-03 14:30] VITALS: BP 149/66; PULSE 73; RESP 20
[2021-01-03 15:00] VITALS: BP 149/80; PULSE 73; RESP 20
[2021-01-03 15:30] VITALS: BP 145/75; PULSE 75; RESP 20
[2021-01-03 16:00] VITALS: BP 139/73; PULSE 76; RESP 20
[2021-01-03 16:30] VITALS: BP 146/75; PULSE 79; RESP 20
--- NOTE | 2021-01-03 16:49 | SUR.PHASEII ---
1625 - dr. amaya lopez for pt to be discharged home. iv dc'd.
== END 2021-01-03 10:13 | disposition home or self-care (01) ==
PROVIDERS: Radiology Diagnostic Radiology; PCP Family Medicine; Visit Provider Urology
DX: N13.30 Unspecified hydronephrosis (principal)
CPT/HCPCS: 36415; 50435; 80053; 80061; 83036; 84439; 84443; 84480; 85025; 85610; C1729; C1769; J0690; Q9966

== ENCOUNTER 2021-01-03 10:21 | Outpatient (CLI) | payer MEDICARE, SELFPAY ==
[2021-01-03 11:08] LABS: Alanine Aminotransferase 19 U/L (4-35); Albumin Level 4.4 g/dL (3.5-5.1); Alkaline Phosphatase 113 U/L (38-126); Anion Gap 8 mmol/L (8-16); Aspartate Amino Transferase 17 U/L (14-36); Bilirubin,Total 0.4 mg/dL (0.2-1.3); Blood Urea Nitrogen 11 mg/dL (7-17); Calcium 9.3 mg/dL (8.4-10.2); Carbon Dioxide 28 mmol/L (22-30); Chloride 105 mmol/L (98-107); Cholesterol 151 mg/dL (0-200); Estimated Glomerular Filt Rate > 60; Glucose 118 mg/dL (65-110); HDL Direct 48 mg/dL; Potassium 4.3 mmol/L (3.4-5.0); Sodium 141 mmol/L (137-145); Triglycerides 150 mg/dL (<150)
[2021-01-03 11:16] LABS: Hemoglobin A1C 6.1 % (<5.7)
[2021-01-03 11:19] LABS: LDL Cholesterol Direct 64 mg/dL
[2021-01-03 11:42] LABS: Thyroid Stimulating Hormone Reflex 0.077 uIU/mL (0.465-4.68)
[2021-01-03 13:00] LABS: Free T4 Free Thyroxine Reflex 1.58 ng/dL (0.78-2.19)
[2021-01-03 13:46] LABS: Total Triiodothyronine (T3) 1.51 NG/ML (0.97-1.69)
== END 2021-01-03 10:22 | disposition home or self-care (01) ==
PROVIDERS: PCP Family Medicine; Referring Provider Surgery; Visit Provider Physician Assistant Medical
DX: E11.9 Type 2 diabetes mellitus without complications (principal); E78.5 Hyperlipidemia, unspecified
CPT/HCPCS: 36415; 80053; 80061; 83036; 84439; 84443; 84480

== ENCOUNTER → 2021-01-27 10:45 | Outpatient (CLI) | payer MEDICARE, SELFPAY ==
--- NOTE | ~2021-01-27 | CT_ITS ---
EXAMINATION: CT abdomen pelvis w con INDICATION: Stenosis of the venous and rectum TECHNIQUE: Computed tomographic images of the abdomen and pelvis were obtained after the administrati on of 100 cc of Omnipaque 350 intravenous contrast. The dose-length product (DLP) was 1075.77 mGy-cm. Automated exposure control and iterative reconstruction technique were employed. COMPARISON: 12/15/2020 FINDINGS: Minimal dependent atelectasis is present in the lung bases. The heart size is normal. There is a small sliding hiatal hernia. The gallbladder is surgically absent. The liver, spleen, pancreas, gallbladder, and adrenal glands are normal. The kidneys are normal. A left percutaneous nephrostomy tube is in expected position. Again noted is nonvisualization of the left mid ureter. There is a rect osigmoid surgical anastomosis. Again noted is a fistula extending to a presacral abscess which measur es 3.1 x 2.4 cm, not significantly changed in size. There is a small volume of free fluid in the cul- de-sac. No pathologically enlarged abdominal or pelvic lymph nodes are identified. There are no dila марина loops of bowel. Fat necrosis is again noted in the left upper quadrant. There are changes of ante rior and posterior fusion from L4 through S1. Severe lumbar spondylosis is unchanged. IMPRESSION: 1. Stable presacral abscess with fistula to the rectosigmoid anastomosis. Reviewed, dictated and finalized at location A.
[2021-01-27 11:07] LABS: Estimated Glomerular Filt Rate > 60
== END ==
PROVIDERS: PCP Family Medicine; Visit Provider Surgery
DX: K62.4 Stenosis of anus and rectum (principal); L02.818 Cutaneous abscess of other sites; K60.4 Rectal fistula
CPT/HCPCS: 74177; Q9967

== ENCOUNTER 2021-03-18 07:48 | Outpatient (CLI) | payer MEDICARE, SELFPAY ==
[2021-03-17 14:50] VITALS: BMI 31.9
--- NOTE | ~2021-03-18 | XR_ITS ---
EXAMINATION: XR nephrostomy tube change DATE: 03/18/2021 10:33 INDICATION: Left ureteral injury. TECHNIQUE: The procedure including the risks, benefits, and alternatives was discussed with the patie nt. Risks discussed included bleeding and infection. The patient understood the risks and benefits an d agreed to proceed. 1 g Ancef IV was given preop. The site around the left nephrostomy tube was pre pped and draped in usual sterile fashion. Anesthetic was administered with 1% lidocaine subcutaneous ly. The existing nephrostomy tube was cut and injected with Omnipaque 240. The catheter was exchanged over a [employer] wire for a new 8.5 Guinean pigtail catheter under fluoroscopic guidance. The catheter was stitched to the skin, and a dressing was applied. There were no immediate complications. FINDINGS: Fluoroscopy images demonstrate the new catheter within the left renal pelvis. There are gal nges of posterior fusion procedure in lumbar spine. IMPRESSION: 1. Successful fluoroscopy guided left nephrostomy tube change. Reviewed, dictated and finalized at location A. 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
[2021-03-18 08:45] VITALS: BP 174/77; PULSE 84; TEMP 36.2; O2SAT 100
[2021-03-18 08:49] LABS: Glucose Point of Care 110 mg/dl (65-105)
[2021-03-18 08:52] LABS: Mean Platelet Volume 10.5 fl (7.4-10.4); Platelet Count Result 237 k/mm3 (150-375)
[2021-03-18 09:11] LABS: INR 0.8; Prothrombin Time 11.5 Seconds (11.1-14.7)
[2021-03-18 10:35] VITALS: BP 165/76; PULSE 71; RESP 16
[2021-03-18 10:50] VITALS: BP 156/70; PULSE 76; RESP 16
[2021-03-18 11:05] VITALS: BP 150/68; PULSE 75; RESP 16
[2021-03-18 11:20] VITALS: BP 149/69; PULSE 76; RESP 18
== END 2021-03-18 11:35 | disposition home or self-care (01) ==
PROVIDERS: PCP Family Medicine; Visit Provider Radiology Diagnostic Radiology
PROC: 0TP530Z Removal of Drainage Device from Kidney, Percutaneous Approach (ICD-10-PCS; CPT 50435; principal; 2021-03-18 10:00)
DX: N13.5 Crossing vessel and stricture of ureter without hydronephrosis (principal)
CPT/HCPCS: 36415; 50435; 82948; 85049; 85610; C1729; C1769; J0690; Q9966

== ENCOUNTER 2021-04-13 12:18 | Outpatient (CLI) | payer MEDICARE, SELFPAY ==
--- NOTE | ~2021-04-13 | NM_ITS ---
EXAMINATION: DERRICK canales renal scan DATE: 04/13/2021 13:58 INDICATION: Left ureteral stenosis TECHNIQUE: 7.7 mCi Tc-99m MAG3 was administered IV. 40 mg furosemide was administered IV immediately afterward. The patient was scanned in the supine position. A posterior abdominal radionuclide angiog favian was obtained. A subsequent time course of static images of the kidneys, ureters, and bladder was obtained. COMPARISON: None FINDINGS: The posterior abdominal radionuclide angiogram and sequential static images show normal size, positio n, and morphology of the kidneys. Peak renal parenchymal uptake was 2.5 min in left kidney and 3.5 mi n in right kidney (normal peak 3-5 minutes). The relative early renal uptake was 45% on the left and 55% on the right (<40% is abnormal). Excreted contrast is seen extending along the left percutaneous nephrostomy tube. No abnormalities of the ureters or bladder are seen. T1/2 for clearance of activity from the left kidney and proximal collecting system was 7 minutes. T1/2 for clearance of activity from the right kidney and proximal collecting system was 7 minutes. Notes on interpretation: T1/2 <10 minutes is normal, 10-15 minutes is low grade obstruction of questi onable clinical significance, 15-20 minutes is partial obstruction that is likely clinically signific ant, >20 minutes is high grade obstruction. Note that false positives may be seen with supine positio lala, dehydration, severely dilated nonobstructed kidney, atonic collecting system, poor renal functi on, and chronic furosemide use. IMPRESSION: 1. Symmetric kidney function and normal clearance with no significant obstruction. Of note the left kidney appears to be draining via a percutaneous nephrostomy tube. 2. No delay in contrast clearance from either kidney to suggest fixed obstruction. Reviewed, dictated and finalized at location B. 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 Symmetric kidney function and normal clearance with no significant obstruct ion. Of note the left kidney appears to be draining via a percutaneous nephrost graciela tube. 2. No delay in contrast clearance from either kidney to suggest fixed obstruct ion.
== END 2021-04-13 12:19 | disposition home or self-care (01) ==
LOC: ANHIMG 12:20
PROVIDERS: PCP Family Medicine; Visit Provider Urology
DX: N13.5 Crossing vessel and stricture of ureter without hydronephrosis (principal)
CPT/HCPCS: 78708; A9562; J1940

== ENCOUNTER 2021-05-13 13:04 | Inpatient (IN) | payer MEDICARE, SELFPAY ==
--- NOTE | ~2021-05-13 | CT_ITS ---
EXAMINATION: CT abdomen pelvis w con DATE: 05/17/2021 12:48 INDICATION: Abdominal abscess TECHNIQUE: Computed tomography (CT) of the abdomen and pelvis was performed with 100 mL Omnipaque-350 intravenous contrast. Automated exposure control and iterative reconstruction technique were employe d. The dose-length product was 550.51 mGy-cm. COMPARISON: Outside institution CT dated 05/13/2021 FINDINGS: Persistent small left pleural effusion and mild linear discoid atelectasis in the left lower lobe. Vi sualized right lower lung is clear with no right-sided pleural effusion. Heart size is normal. No per icardial effusion. Cholecystectomy clips the gallbladder fossa. Liver, spleen, pancreas, right kidney and bilateral adrenal glands are normal. Status post left nephrectomy. Interval drainage of the larg e abscess previously seen at the nephrectomy bed which is now decompressed. There is a small amount o f nonloculated ascites along side several loops of small bowel at the posterolateral left abdomen. Po stoperative change of prior partial colectomy with anastomotic suture line in the deep pelvis. No bow el obstruction. Bladder, uterus and bilateral adnexa are unremarkable. Additional small amount of asc ites in the cul-de-sac. No pathologically enlarged abdominal or pelvic lymphadenopathy. There is a la yering fat fluid level within a small peripherally enhancing loculated fluid collection in the subcut aneous fat along the anterior abdominal wall of the left abdomen underlying a likely laparoscopic tro car access site. The collection as an acute V-shaped configuration with each leg of the measuring kirk roximate 7 cm in length and measuring up to 1-2 cm in maximal diameter. Severe lumbar spondylosis wit h combined instrumented anterior and posterior spinal fusion at L4-S1. Benign lytic lesion with thin sclerotic margins at L1 which was present on MRI dated 05/07/2007 most likely a hemangioma. IMPRESSION: 1. Interval decompression of the prior large abscess at the left nephrectomy bed post interval placem ent of a percutaneous abscess drain. 2. Small amount of nonorganized ascites in the left abdomen and pelvis dated 3. Small subcutaneous fat and fluid collection likely at the site of a prior laparoscopy trocar acces s site. Reviewed, dictated and finalized at location A. 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 Interval decompression of the prior large abscess at the left nephrectomy be d post interval placement of a percutaneous abscess drain. 2. Small amount of nonorganized ascites in the left abdomen and pelvis dated 3. Small subcutaneous fat and fluid collection likely at the site of a prior la paroscopy trocar access site.
--- NOTE | ~2021-05-13 | CT_ITS ---
EXAMINATION: CT guide absc cath placement DATE: 05/13/2021 15:59 INDICATION: Left retroperitoneal fluid collection post recent nephrectomy TECHNIQUE: The procedure including the risks and benefits was discussed with the patient. Risks discu ssed included bleeding and infection. The patient understood the risks and benefits and agreed to pro ceed. The patient was confirmed to be receiving appropriate antibiotic coverage. The skin overlying the lumbar and left paraspinal region was prepped and draped in usual sterile fashion. Anesthetic wa s administered with 1% lidocaine subcutaneously. An 18-gauge trocar needle was inserted into the locu lated retroperitoneal fluid collection utilizing CT guidance. The inner stylette was removed and a J- wire advanced into the fluid collection with positioning confirmed by CT. The needle was removed and utilizing Seldinger technique the tract was serially dilated to 12 [place] and a 12 [place] pigtail cat heter inserted over the wire. Position was confirmed by CT. The wire was removed and the catheter loo p was formed and locked. The catheter was stitched to the skin, antibiotic appointment and a sterile dressing were applied. An additional adhesive fixation device was applied. 50 mL of phoenix-tinged dark r eddish opaque fluid was aspirated and sent to the lab for Gram stain and cultures. The catheter was a ttached to suction drainage and was draining additional fluid at the conclusion of the procedure. The re were no immediate complications. The dose-length product was 322.07 mGy-cm. FINDINGS: CT images demonstrate the catheter within the left retroperitoneal gas and fluid collection which was significantly decreased in size at the conclusion of the procedure. 50 mL fluid was aspira марина for testing. IMPRESSION: 1. Successful CT-guided left retroperitoneal abscess drainage catheter placement. 2. 50 mL fluid was sent for aerobic and anaerobic cultures. 3. The catheter will be managed by the department of urology. Reviewed, dictated and finalized at location [facility]. [facility] IMPRESSION: 1. Successful CT-guided left retroperitoneal abscess drainage catheter placemen t. 2. 50 mL fluid was sent for aerobic and anaerobic cultures. 3. The catheter will be managed by the department of urology.
[2021-05-13 13:27] VITALS: BP 124/59; PULSE 82; RESP 16; TEMP 36.4; O2SAT 99
--- NOTE | 2021-05-13 13:53 | ED.ABDPAIN ---
HPI - Abdominal Pain General Chief Complaint: Skin/Abscess/Foreign Body <IVANIA Daniels Last Filed: 05/13/21 17:29> Stated Complaint: post op infection <IVANIA Daniels Last Filed: 05/13/21 17:29> Time Seen by Provider: 05/13/21 13:30 <IVANIA Daniels Last Filed: 05/13/21 17:29> Source: patient <IVANIA Daniels Last Filed: 05/13/21 17:29> Mode of arrival: ambulatory <IVANIA Daniels Last Filed: 05/13/21 17:29> Limitations: no limitations <IVANIA Daniels Last Filed: 05/13/21 17:29> History of Present Illness HPI narrative: This is a 66 year old female that presents to the ER for abnormal imaging findings. Reports she had a nephrectomy on the [address] Montes De Oca. Things were going well post-op until about a week ago. Reports she started to have decreased appetite, nausea and vomiting. Reports a couple days ago she saw some drainage from one of her incision sites. Denies fever or dysuria. <IVANIA Daniels Last Filed: 05/13/21 17:29> Related Data Home Medications: Home Medications Medication Instructions Recorded Confirmed atorvastatin 10 mg PO HS 09/01/20 04/14/21 lisinopril 20 mg PO QAM 09/09/20 04/14/21 meclizine 12.5 mg PO BID PRN 10/07/20 04/14/21 <IVANIA Daniels Last Filed: 05/13/21 17:29> Allergies/Adverse Reactions: Allergies Allergy/AdvReac Type Severity Reaction Status Date / Time metronidazole AdvReac Unknown Nausea,Vomi Verified 04/14/21 09:10 ting <IVANIA Daniels Last Filed: 05/13/21 17:29> Review of Systems Review of Systems: CONSTITUTIONAL: Denies fever GASTROINTESTINAL: Reports abdominal pain, nausea, vomiting GENITOURINARY: Denies dysuria or hematuria. <IVANIA Daniels Last Filed: 05/13/21 17:29> All systems reviewed & are unremarkable except as noted in HPI and below <IVANIA Daniels Last Filed: 05/13/21 17:29> [facility] Past Medical History Medical History: Medical History Dementia Diabetes Essential (primary) hypertension GERD (gastroesophageal reflux disease) Hydronephrosis Hyperlipidemia Hypothyroidism (acquired) Left ureteral injury (~09/2020) Sigmoid polyp Tubular adenoma of colon <IVANIA Daniels Last Filed: 05/13/21 17:29> Surgical History Surgical History: Surgical History H/O rotator cuff surgery H/O tubal ligation History of appendectomy History of cholecystectomy History of left nephrectomy Previous back surgery S/P laparoscopic-assisted sigmoidectomy 09/09/20 <IVANIA Daniels Last Filed: 05/13/21 17:29> Family History Family History: Family History Father Hypertension Family history of malignant neoplasm of urinary bladder Mother Hypertension, Onset Age: 50 Heart attack Sibling Hypertension Family history of elevated blood lipids Family history of cardiovascular disease Malignant neoplasm of prostate Grandparent Heart disease Cancer Hypertension <IVANIA Daniels Last Filed: 05/13/21 17:29> Social History Social History: Social History Smoking status: Never smoker Second hand tobacco smoke exposure: No Smoking end date: 04/09/71 Additional smoking assessment comments: STATES SOCIAL SMOKER/6MONTHS-1YR/QUIT 1972 Alcohol intake: never Substance use: never Substance use type: does not use Additional living arrangements comments: [employer] Gender identity (if verbalized by the patient): Female Sexual Orientation (if Verbalized by the Patient): Straight or Heterosexual Spiritual care concerns: No <IVANIA Daniels Last Filed: 05/13/21 17:29> Exam Narrative: GE
[2021-05-13 14:35] LABS: Basophils Percent Auto 0.2 % (0.2-1.2); Eosinophils Percent Auto 0.1 % (0-4.4); Hematocrit 35.6 % (37.0-47.0); Hemoglobin 11.7 g/dL (12.0-15.0); Immature Granulocyte Absolute 0.26 K/mm3 (0.00-0.031); Immature Granulocyte Percent A 1.3 % (0-0.5); Lymphocytes Absolute Auto 1.49 K/mm3 (0.9-3.2); Lymphocytes Percent Auto 7.6 % (18.3-44.2); Mean Corpuscular HGB Conc 32.9 g/dl (32-36); Mean Corpuscular Hemoglobin 28.4 pg (26-34); Mean Corpuscular Volume 86.4 fl (80-100); Mean Platelet Volume 9.5 fl (7.4-10.4); Monocytes Absolute Auto 1.4 K/mm3 (0.1-0.6); Neutrophils Absolute Auto 16.5 K/mm3 (1.3-6.7); Neutrophils Percent Auto 83.8 % (45.5-73.1); Platelet Count Result 523 k/mm3 (150-375); Red Blood Count 4.12 M/mm3 (4.2-5.4); Red Cell Distribution Width 14.3 % (11.5-14.5); White Blood Count 19.7 K/mm3 (4.5-10.0)
[2021-05-13 14:46] LABS: INR 1.3; Prothrombin Time 15.5 Seconds (11.1-14.7)
[2021-05-13 14:47] LABS: Lactic Acid Reflex 1.2 mmol/L (0.7-2.1); Partial Thromboplastin Time 30.9 SECONDS (22.3-36.8)
[2021-05-13 15:07] LABS: Alanine Aminotransferase 32 U/L (4-35); Albumin Level 3.6 g/dL (3.5-5.1); Alkaline Phosphatase 135 U/L (38-126); Anion Gap 7 mmol/L (8-16); Aspartate Amino Transferase 34 U/L (14-36); Bilirubin,Total 0.6 mg/dL (0.2-1.3); Blood Urea Nitrogen 18 mg/dL (7-17); Calcium 9.1 mg/dL (8.4-10.2); Carbon Dioxide 23 mmol/L (22-30); Chloride 99 mmol/L (98-107); Estimated CRCL calculation 30 ml/min; Estimated Glomerular Filt Rate 37; Glucose 106 mg/dL (65-110); Lipase 93 U/L (23-300); Potassium 4.8 mmol/L (3.4-5.0); Sodium 129 mmol/L (137-145)
--- NOTE | 2021-05-13 16:17 | WPDURCON ---
Assessment and Plan Assessment and plan (1) Status post nephrectomy: Code(s): Z90.5 - Acquired absence of kidney Status: Acute Assessment and Plan: Incisions are healing very nicely. (2) Abdominal abscess: Status: Acute Assessment and Plan: IR has finished placing a drain in the left flank to drain abscess noted on CT from this morning. Her drain is draining purulent, bloody drainage and is tender but with time I expect the pain to improve. She was previously on Bactrim, I recommend starting an IV broad spectrum antibiotic instead. Will culture fluid and tailor antibiotics to culture results. She is afebrile, but c/o nausea at this time. Will monitor patient, admit to medicine. (3) Nausea: Code(s): R11.0 - Nausea Status: Acute Assessment and Plan: ok to treat with Zofran. Urology Consult Note HPI Date Seen: 05/13/21 Primary Care Provider: Flakito Breaux MD Consult Narrative Narrative: Letty Irene is a 66 year old female who is s/p left nephrectomy with Dr. Fernando Montes De Oca on 04/25/2021. She was recovering nicely until Sunday when she developed left flank pain and tenderness in the lower left abdomen. Her incisions were well approximated and she had no drainage from those. She also denied a fever, chills or vomiting, but reports moderate nausea. She called our exchange to report these symptoms but d/t bad weather we were closed. She was then seen today in the office by Dr. Montes De Oca, who ordered a stat CT scan showing left retroperitoneal fluid collection, no free air or signs of bowel obstruction. She was sent to [facility] as it is close to her home to be evaluated for IR to drain the abscess s/p nephrectomy. She has been on Bactrim since Sunday without improvement. Her creatinine post op was 1.32 and is now 1.40, therefore remaining stable, she is afebrile, but has a WBC of 19.7. Review of Systems Cardiovascular: Cardiovascular: Denies chest pain Respiratory: Respiratory: Reports no additional respiratory complaints Gastrointestinal: Gastrointestinal: Reports nausea and Denies vomiting Genitourinary: Genitourinary: Denies hematuria, Denies dysuria, Reports pelvic pain, Reports flank pain and Denies urinary urgency PMFSH Past Medical History Medical History Dementia Diabetes Essential (primary) hypertension GERD (gastroesophageal reflux disease) Hydronephrosis Hyperlipidemia Hypothyroidism (acquired) Left ureteral injury (~09/2020) Sigmoid polyp Tubular adenoma of colon Surgical History Surgical History H/O rotator cuff surgery H/O tubal ligation History of appendectomy History of cholecystectomy History of left nephrectomy Previous back surgery S/P laparoscopic-assisted sigmoidectomy 09/09/20 Family History Family History Father Hypertension Family history of malignant neoplasm of urinary bladder Mother Hypertension, Onset Age: 50 Heart attack Sibling Hypertension Family history of elevated blood lipids Family history of cardiovascular disease Malignant neoplasm of prostate Grandparent Heart disease Cancer Hypertension Social History Social History Smoking status: Never smoker Second hand tobacco smoke exposure: No Smoking end date: 04/09/71 Additional smoking assessment comments: STATES SOCIAL SMOKER/6MONTHS-1YR/QUIT 1972 Alcohol intake: never Substance use: never Substance use type: does not use Additional living arrangements comments: [employer] Gender identity (if verbalized by the patient): Female Sexual Orientation (if Verbalized by the Patient): Straight or Heterosexual Spiritual care concerns: No Meds Home Medications and Allergies Home Medica
[2021-05-13 16:35] VITALS: BP 107/35; PULSE 81; RESP 18; O2SAT 98
[2021-05-13] MEDS: SODIUM CHLORIDE 0.9% IV 500 ML 999 ML IV CONT ×2 (16:53→17:47)
[2021-05-13 17:22] LABS: SARS-CoV-2 RNA PCR Negative
[2021-05-13 17:34] LABS: Add Urine Microscopic? YES; Appearance Urine Clear (Clear); Bilirubin Urine Negative (Negative); Blood Urine Negative (Negative); Color Urine Yellow (Yellow); Glucose Urine UA Negative (Negative); Ketones Urine Negative (Negative); Leukocyte Esterase Ur Negative LEU/UL (Negative); Mucus Urine Rare /lpf; Nitrate Urine Negative (Negative); Protein Urine 1+ mg/dL (Negative); Squamous Epithelial Cell Urine Few /hpf (Few); WBC Urine 0-3 /hpf
[2021-05-13 17:35] LABS: Specific Grav Ur 1.015 (1.001-1.035)
[2021-05-13] MEDS: DEXTROSE 5%/LACTATED RINGERS 1,000 ML 150 ML IV CONT (17:46)
[2021-05-13 17:57] VITALS: BP 158/73; PULSE 78; RESP 18; O2SAT 97
--- NOTE | 2021-05-13 18:15 | WPDCN ---
Assessment and Plan Assessment and plan (1) Retroperitoneal abscess: Code(s): K68.19 - Other retroperitoneal abscess Status: Acute Assessment and Plan: Status post drainage catheter insertion per IR. Drain management as per Urology. Continue Zosyn, pending cultures. (2) Elevated serum creatinine: Code(s): R79.89 - Other specified abnormal findings of blood chemistry Status: Acute Assessment and Plan: Postop creatinine was reportedly 1.32. Will continue to monitor. (3) Status post nephrectomy: Code(s): Z90.5 - Acquired absence of kidney Status: Acute Assessment and Plan: Status post left nephrectomy on 04/25/2021. (4) Hyponatremia: Code(s): E87.1 - Hypo-osmolality and hyponatremia Status: Acute Assessment and Plan: Patient has had poor appetite and decreased oral intake since her surgery. She will be judiciously hydrated overnight. Encourage oral intake. (5) Diet-controlled diabetes mellitus: Code(s): E11.9 - Type 2 diabetes mellitus without complications Status: Acute Assessment and Plan: Random glucose today is 106. (6) Essential (primary) hypertension: Code(s): I10 - Essential (primary) hypertension Status: Chronic Assessment and Plan: Blood pressures were reviewed and they have been stable. Her antihypertensives will be reviewed and resumed as appropriate. Additional Plan Thank you for allowing us to participate in this patient's care. Please do not hesitate to contact us with any questions. Supervising physician for this medical consultation is Dr. Aparna Lopez. HPI Data of Consult Date/Time: 05/13/21 18:15 Requesting Physician: Ziyad Garcia MD Primary Care Provider: Flakito Breaux MD Consult Narrative Narrative: This is a pleasant 66-year-old female with hypertension, hyperlipidemia, GERD, hypothyroidism, and colon cancer presented to the emergency department today for evaluation of abnormal findings noted on CT of the abdomen and pelvis. She is status post left nephrectomy on 04/25/[address] Montes De Oca and she feels as though she has just not bounced back postoperatively as well as she should. Specifically she has had ongoing, pretty constant discomfort at the operative site as well as frequent nausea, occasional emesis, and decreased appetite with poor oral intake. Two nights ago her daughter was helping her in the shower when she noticed a fairly large amount of purulence, bloody discharge coming from the operative site. She spoke with her surgeon and was started on Bactrim and she was seen in office today for follow-up. CT of the abdomen and pelvis done at that time demonstrated a left retroperitoneal fluid collection with gas and she is now status post drainage catheter placement per Interventional Radiology. Aside from discomfort at the operative site she has no specific complaints but is a bit despondent. She denies fever, chills, and sweats. She has not noticed a decrease in urine output and denies dysuria and hematuria. Review of Systems Review of Systems: Twelve systems were reviewed and are negative except for as per HPI. [facility] Past Medical History Medical History (Updated 05/13/21 @ 22:33 by Toyin Mcclain PA-C) Cancer of sigmoid colon Sigmoid colon polyp removed 06/30/2020 showed moderately differentiated adenocarcinoma. No evidence of residual neoplasm with sigmoidectomy. Diet-controlled diabetes mellitus Hemoglobin A1c was 6.1% in December 2020. Essential (primary) hypertension Gastroesophageal reflux disease Hyperlipidemia Hypothyroidism (acquired) Left ureteral injury (09/2020) Tubular adenoma of colon Surgical History Surgical History (Updated 05/13/21 @ 22:28 by Toyin Mcclain PA-C) History of appendectomy History of cholecystectomy History of left nephrectomy (04/25/21) History
--- NOTE | 2021-05-13 18:20 | PC.NURSE ---
This nurse told she the pt room was not clean and the nurse was not available for report at this time.
[2021-05-13] MEDS: DOCUSATE SODIUM 100 MG CAPSULE PO (18:41)
--- NOTE | 2021-05-13 19:08 | PC.NURSE ---
Per RN from [address] [place] [address], pt room is still not clean and this nurse will receive a call at this time to give report.
[2021-05-13 19:40] VITALS: BP 153/55; PULSE 82; RESP 16; O2SAT 99
--- NOTE | 2021-05-13 20:50 | ADMGEN ---
This patient, Letty Irene, was admitted to Medical Room 346-01. Patient/family oriented to hospital policies and general routines including ID bracelet, bed and alarms, visiting hours, pain management, procedures, bathroom and other care routines, personal items, smoking policy, room service/diet, and visiting hours. Information on how to activate the Rapid Response Team has been discussed. Patient/Family are encouraged to report perceived risks to care and to ask questions if they do not understand what they are told or what they should do.
[2021-05-13 21:02] VITALS: BMI 30.6
[2021-05-13 21:51] VITALS: BP 147/56; PULSE 82; RESP 18; TEMP 35.7; O2SAT 99
[2021-05-14] MEDS: SODIUM CHLORIDE 0.9% IV 1,000 ML 100 ML IV CONT (01:10)
[2021-05-14] MEDS: PANTOPRAZOLE 40 MG TABLET PO ×2 (01:11→21:58)
[2021-05-14] MEDS: ATORVASTATIN 10 MG TABLET PO ×2 (01:11→21:58)
[2021-05-14] MEDS: traMADol HCL (*CRX) 50 MG TABLET PO (01:16)
[2021-05-14] MEDS: LEVOTHYROXINE SODIUM 75 MCG TABLET PO (05:35)
[2021-05-14 05:43] VITALS: BP 104/56; PULSE 78; RESP 20; TEMP 35.9; O2SAT 97
[2021-05-14 05:47] LABS: Basophils Percent Auto 0.2 % (0.2-1.2); Eosinophils Absolute Auto 0.1 K/mm3 (0-0.3); Eosinophils Percent Auto 0.4 % (0-4.4); Hematocrit 30.8 % (37.0-47.0); Immature Granulocyte Absolute 0.24 K/mm3 (0.00-0.031); Immature Granulocyte Percent A 1.7 % (0-0.5); Lymphocytes Absolute Auto 1.84 K/mm3 (0.9-3.2); Lymphocytes Percent Auto 13.2 % (18.3-44.2); Mean Corpuscular HGB Conc 32.5 g/dl (32-36); Mean Corpuscular Hemoglobin 28.4 pg (26-34); Mean Corpuscular Volume 87.5 fl (80-100); Mean Platelet Volume 9.5 fl (7.4-10.4); Monocytes Percent Auto 7.4 % (2.6-8.5); Neutrophils Absolute Auto 10.8 K/mm3 (1.3-6.7); Neutrophils Percent Auto 77.1 % (45.5-73.1); Platelet Count Result 437 k/mm3 (150-375); Red Blood Count 3.52 M/mm3 (4.2-5.4); Red Cell Distribution Width 14.5 % (11.5-14.5)
[2021-05-14 06:04] LABS: Anion Gap 4 mmol/L (8-16); Blood Urea Nitrogen 14 mg/dL (7-17); Calcium 8.1 mg/dL (8.4-10.2); Carbon Dioxide 22 mmol/L (22-30); Chloride 105 mmol/L (98-107); Estimated CRCL calculation 34 ml/min; Estimated Glomerular Filt Rate 41; Glucose 109 mg/dL (65-110); Magnesium 2.2 mg/dL (1.6-2.3); Potassium 4.6 mmol/L (3.4-5.0); Sodium 131 mmol/L (137-145)
[2021-05-14] MEDS: HYDROcodone/acetaminophen (*CRX) 5-325 MG TABLET 1 TAB PO ×3 (08:35→21:58)
[2021-05-14] MEDS: DOCUSATE SODIUM 100 MG CAPSULE PO ×2 (08:35→18:06)
--- NOTE | 2021-05-14 13:00 | PM.IMPN ---
Progress Note: A&P Assessment and Plan (1) Retroperitoneal abscess: Code(s): K68.19 - Other retroperitoneal abscess Status: Acute Assessment and Plan: Status post drainage catheter insertion per IR on 05/13/21. Drain management as per Urology. Continue Zosyn, pending cultures. Blood cultures pending, no growth to date (2) Elevated serum creatinine: Code(s): R79.89 - Other specified abnormal findings of blood chemistry Status: Acute Assessment and Plan: Postop creatinine was reportedly 1.32. Creatinine 1.3 today. Continue monitoring (3) Status post nephrectomy: Code(s): Z90.5 - Acquired absence of kidney Status: Acute Assessment and Plan: Status post left nephrectomy on 04/25/2021. Managed per Urology (4) Hyponatremia: Code(s): E87.1 - Hypo-osmolality and hyponatremia Status: Acute Assessment and Plan: Patient has had poor appetite and decreased oral intake since her surgery. Sodium 129 on presentation. Has improved following IV fluid rehydration. Sodium 131 today. IV fluids discontinued as she is tolerating p.o. intake, which has been encouraged (5) Diet-controlled diabetes mellitus: Code(s): E11.9 - Type 2 diabetes mellitus without complications Status: Acute Assessment and Plan: Last A1c was 6.1. Fasting glucose today was 109. No further management required (6) Essential (primary) hypertension: Code(s): I10 - Essential (primary) hypertension Status: Chronic Assessment and Plan: Blood pressures were reviewed and they have been somewhat fluctuant but stable. Last BP 104/56. Lisinopril is on hold. Monitor BP trends Subjective Date/time seen: 05/14/21 13:00 Interval history: Date of service: 05/14/2021 Letty Irene is a 66-year-old female with a history of sigmoid colon cancer, hypertension, hyperlipidemia, hypothyroidism, s/p left nephrectomy 04/25/2021 who is seen in follow-up for retroperitoneal abscess. She is feeling a little bit better today but still not feeling back to her usual self. She does have some pain at the site of the drain that has improved somewhat today. At rest she rates this pain as a 1/10 but when she gets up or moves around her pain increased to 5-6/10. She has been requiring the use of a walker to get around for the past week or so and she feels wobbly on her feet. She reports weakness. Denies dizziness or lightheadedness. No nausea or vomiting. She does endorse a decreased appetite. She was able to eat a small amount of her breakfast this morning which she notes is an improvement overall. Denies abdominal pain. She does complain of left flank pain. No back pain. No urinary symptoms including dysuria, hematuria urgency, or frequency. Denies fever or chills. Review of Systems Review of Systems: All systems reviewed & are unremarkable except as noted in HPI and below Exam Narrative: General: Well-nourished, well-appearing, 66 year-old female, sitting up in bed, comfortable, NARD Neuro: awake, alert and oriented x4, speech clear, no focal neuro deficits noted HEENMT: normocephalic, atraumatic, EOMI, sclerae anicteric, moist oral mucosa Respiratory: clear to auscultation bilaterally, nonlabored breathing Cardio: regular rate, regular rhythm with S1-S2 Abdomen: nondistended, normoactive bowel sounds, soft, nontender to palpation : Drain from left flank with bloody output, left flank is tender to palpation, no CVA tenderness Extremities: no edema, erythema, or tenderness to palpation, DP pulses 2+ bilaterally Skin: no rashes or lesions, warm and dry Psych: appropriate mood and affect, judgment and insight intact Objective Data Vital Signs Vital Signs: Vital Signs - 24 hr 05/13/21 13:27 05/13/21 16:35 05/13/21 17:57 Temperature 97.5 F L Pulse Rate 82 81 78 Respiratory Rate 16 18 18 Blood Pressure 124/59 L 107/35 L 158/73
--- NOTE | 2021-05-14 13:21 | WPDUROPN2 ---
Progress Note: A&P Assessment and Plan (1) Status post nephrectomy: Code(s): Z90.5 - Acquired absence of kidney Status: Acute (2) Diet-controlled diabetes mellitus: Code(s): E11.9 - Type 2 diabetes mellitus without complications Status: Acute (3) Retroperitoneal abscess: Code(s): K68.19 - Other retroperitoneal abscess Status: Acute Assessment and Plan: drain placed on Zosyn improving and will observe Subjective Subjective Date/Time Seen: 05/14/21 13:21 Drain placed yesterday WBC improving no fevers documented no new complaints Review of Systems Review of Systems: All systems reviewed & are unremarkable except as noted in HPI and below Exam Chest: Chest palpation & inspection: normal inspection of the chest Resp: Effort & Inspection: normal respiratory effort GI: Inspection: normal to inspection GI Palp: No abdominal tenderness and Yes Soft to palpation Objective Data Vital Signs Vital Signs: Vital Signs - 24 hr 05/13/21 13:27 05/13/21 16:35 05/13/21 17:57 Temperature 36.4 C L Pulse Rate 82 81 78 Respiratory Rate 16 18 18 Blood Pressure 124/59 L 107/35 L 158/73 H Pulse Oximetry 99 98 97 05/13/21 19:40 05/13/21 21:51 05/14/21 05:43 Temperature 35.7 C L 35.9 C L Pulse Rate 82 82 78 Respiratory Rate 16 18 20 Blood Pressure 153/55 H 147/56 H 104/56 L Pulse Oximetry 99 99 97 Intake/Output Intake/Output: Intake & Output 05/11/21 05/12/21 05/13/21 05/14/21 23:59 23:59 23:59 23:59 Intake Total 1050 560 Output Total 950 Balance 1050 -390 Meds/Results Medications: Active Medications Generic Name Dose Route Start Last Admin Trade Name Freq PRN Reason Stop Dose Admin Hydrocodone Bitart/Acetaminophen 1 tab 05/14/21 05:00 05/14/21 08:35 Hydrocodone/Acetaminophen (*Crx) 5-325 Mg Tablet PO 1 tab Q4H PRN Administration Pain Rated 1-3 Hydrocodone Bitart/Acetaminophen 2 tab 05/14/21 05:00 Hydrocodone/Acetaminophen (*Crx) 5-325 Mg Tablet PO Q4H PRN Pain Rated 4-6 Atorvastatin Calcium 10 mg 05/13/21 22:45 05/14/21 01:11 Atorvastatin 10 Mg Tablet PO 10 mg HS ZAC Administration Dextrose 12.5 gm 05/13/21 22:37 Dextrose 50% 25 Gm/50 Ml Syringe IV PUSH PRN PRN Hypoglycemia Protocol Docusate Sodium 100 mg 05/13/21 17:00 05/14/21 08:35 Docusate Sodium 100 Mg Capsule PO 100 mg BID ZAC Administration Glucagon 1 mg 05/13/21 22:37 Glucagon For Inj 1 Mg Vial IM PRN PRN Hypoglycemia Protocol Glucose 15 gm 05/13/21 22:37 Glucose Oral Gel 15 Gm Of Glucse In 37.5 Gm Tube PO PRN PRN Hypoglycemia Protocol Hydromorphone HCl 0.5 mg 05/13/21 16:30 Hydromorphone Hcl Inj (*Crx) 1 Mg/Ml Syr IV PUSH Q4H PRN Pain Rated 7-10 Piperacillin Sod/Tazobactam Sod 2.25 gm in 50 mls @ 100 mls/hr 05/14/21 00:00 05/14/21 11:53 Zosyn 2.25 Gm/D5w 50 Ml IVPB 100 mls/hr Q6HR ZAC Administration Dextrose 1,000 mls @ 100 mls/hr 05/13/21 22:37 Dextrose 5% 1,000 Ml IVPB PRN PRN Hypoglycemia Protocol Levothyroxine Sodium 75 mcg 05/14/21 06:30 05/14/21 05:35 Levothyroxine Sodium 75 Mcg Tablet PO 75 mcg DAILY@0630 ZAC Administration Naloxone HCl 0.1 mg 05/13/21 16:30 Naloxone Hcl 0.4 Mg/Ml Vial IV PUSH Q2M PRN Opiate Reversal Ondansetron HCl 4 mg 05/13/21 16:26 Ondansetron Inj 4 Mg/2 Ml Vial IV PUSH TID PRN Nausea Pantoprazole Sodium 40 mg 05/13/21 21:00 05/14/21 01:11 Pantoprazole 40 Mg Tablet PO 40 mg HS ZAC Administration Tramadol HCl 50 mg 05/13/21 22:38 05/14/21 01:16 Tramadol Hcl (*Crx) 50 Mg Tablet PO 50 mg Q6H PRN Administration PAIN RATED 4-6 Radiology Results: ITS Impressions Catheter Placement CT 05/13/21 16:24 IMPRESSION: 1. Successful CT-guided left retroperitoneal abscess drainage catheter placement. 2. 50 mL fluid was
[2021-05-14 14:00] VITALS: BP 121/41; PULSE 75; RESP 18; TEMP 36.6; O2SAT 99
[2021-05-14 22:00] VITALS: BP 102/42; PULSE 77; RESP 16; TEMP 36.1; O2SAT 98
[2021-05-15] MEDS: LEVOTHYROXINE SODIUM 75 MCG TABLET PO (05:30)
[2021-05-15 05:43] LABS: Hematocrit 31.1 % (37.0-47.0); Hemoglobin 9.9 g/dL (12.0-15.0); Mean Corpuscular HGB Conc 31.8 g/dl (32-36); Mean Corpuscular Hemoglobin 28.3 pg (26-34); Mean Corpuscular Volume 88.9 fl (80-100); Mean Platelet Volume 9.5 fl (7.4-10.4); Platelet Count Result 392 k/mm3 (150-375); Red Cell Distribution Width 14.5 % (11.5-14.5)
[2021-05-15 06:00] VITALS: BP 114/58; PULSE 74; RESP 16; TEMP 36; O2SAT 98
[2021-05-15 06:00] LABS: Anion Gap 3 mmol/L (8-16); Blood Urea Nitrogen 12 mg/dL (7-17); Calcium 8.3 mg/dL (8.4-10.2); Carbon Dioxide 25 mmol/L (22-30); Chloride 104 mmol/L (98-107); Estimated CRCL calculation 34 ml/min; Estimated Glomerular Filt Rate 41; Glucose 115 mg/dL (65-110); Potassium 4.3 mmol/L (3.4-5.0); Sodium 132 mmol/L (137-145)
[2021-05-15] MEDS: DOCUSATE SODIUM 100 MG CAPSULE PO ×2 (09:50→17:19)
--- NOTE | 2021-05-15 10:23 | PM.IMPN ---
Progress Note: A&P Assessment and Plan (1) Retroperitoneal abscess: Code(s): K68.19 - Other retroperitoneal abscess Status: Acute Assessment and Plan: S/p drainage catheter insertion per IR on 05/13/21. Drain management as per Urology. Abscess Cultures growing E. coli and Enterococcus bacteria. Continue Zosyn #2 and added IV Vancomycin #1 for Enterococcus coverage, pending sensitivity results. Blood cultures no growth to date Continue monitoring. Appreciate Urology input. (2) Elevated serum creatinine: Code(s): R79.89 - Other specified abnormal findings of blood chemistry Status: Acute Assessment and Plan: Postop creatinine was reportedly 1.32. Creatinine 1.3 today. Appears stable. Continue monitoring (3) Status post nephrectomy: Code(s): Z90.5 - Acquired absence of kidney Status: Acute Assessment and Plan: Status post left nephrectomy on 04/25/2021. Managed per Urology (4) Hyponatremia: Code(s): E87.1 - Hypo-osmolality and hyponatremia Status: Acute Assessment and Plan: Patient has had poor appetite and decreased oral intake since her surgery. Sodium 129 on presentation and improved to 132. Has improved following IV fluid rehydration. IV fluids discontinued as she is tolerating p.o. intake, which has been encouraged Continue monitoring (5) Diet-controlled diabetes mellitus: Code(s): E11.9 - Type 2 diabetes mellitus without complications Status: Acute Assessment and Plan: Last A1c was 6.1. Fasting glucose today was 109. No further management required (6) Essential (primary) hypertension: Code(s): I10 - Essential (primary) hypertension Status: Chronic Assessment and Plan: Blood pressure 114/58. Stable at this time. Lisinopril is on hold. Monitor BP trends Additional Plan Time Spent With Patient Time with patient: 25 - 35 minutes Subjective Date/time seen: 05/15/21 10:23 Interval history: Letty Irene is a 66-year-old female with a history of sigmoid colon cancer, hypertension, hyperlipidemia, hypothyroidism, s/p left nephrectomy 04/25/2021 who is seen in follow-up for retroperitoneal abscess. Date of service 05/15/2021: She is feeling a little bit better today, eating and drinking well. At rest, she has minimal pain and it is worse when she gets up and is walking around. She denies any fever, chills, chest pain, SOB, cough, nausea, vomiting, abdominal pain ,constipation, diarrhea, leg swelling, calf pain, or any other symptoms at this time. Review of Systems Review of Systems: All systems reviewed & are unremarkable except as noted in HPI and below Exam Narrative: General: 66-year-old woman sitting up in bed watching TV. Appears comfortable. In no acute distress. Skin: No jaundice or cyanosis. Good skin turgor. Neck: Full range of motion. Supple. Respiratory: Lungs are clear to auscultation bilaterally. No bony chest wall tenderness. Cardiovascular: The heart has a regular rate and rhythm without murmur. Lower extremities: No lower extremity edema. Distal pulses are easily palpated. No calf tenderness to palpation. Gastrointestinal: Left flank with perc drain in place with brown output. The abdomen is otherwise soft, nontender and nondistended with active bowel sounds. Psychiatric: Lucid and oriented. Memory intact. Neurologic: No focal deficits. Speech is clear. No facial drooping. Objective Data Vital Signs Vital Signs: Vital Signs - 24 hr 05/14/21 14:00 05/14/21 22:00 05/15/21 06:00 Temperature 97.8 F 97 F L 96.8 F L Pulse Rate 75 77 74 Respiratory Rate 18 16 16 Blood Pressure 121/41 L 102/42 L 114/58 L Pulse Oximetry 99 98 98 Intake/Output Intake/Output: Intake & Output 05/12/21 05/13/21 05/14/21 05/15/21 23:59 23:59 23:59 23:59 Intake Total 1050 2320 420 Output Total 1910 1730 Balance 1050 410 -131
[2021-05-15 14:00] VITALS: BP 122/68; PULSE 76; RESP 18; TEMP 36.4; O2SAT 99
[2021-05-15] MEDS: HYDROcodone/acetaminophen (*CRX) 5-325 MG TABLET 1 TAB PO (17:19)
[2021-05-15 20:00] VITALS: BP 127/61; PULSE 84; RESP 18; TEMP 36.3; O2SAT 99
[2021-05-15] MEDS: ATORVASTATIN 10 MG TABLET PO (20:57)
[2021-05-15] MEDS: PANTOPRAZOLE 40 MG TABLET PO (20:57)
[2021-05-16] MEDS: HYDROcodone/acetaminophen (*CRX) 5-325 MG TABLET 1 TAB PO (00:11)
[2021-05-16] MEDS: LEVOTHYROXINE SODIUM 75 MCG TABLET PO (06:07)
[2021-05-16 06:27] LABS: Basophils Absolute Auto 0.1 K/mm3 (0.0-0.1); Basophils Percent Auto 1.1 % (0.2-1.2); Eosinophils Absolute Auto 0.4 K/mm3 (0-0.3); Eosinophils Percent Auto 4.2 % (0-4.4); Hematocrit 32.8 % (37.0-47.0); Hemoglobin 10.2 g/dL (12.0-15.0); Immature Granulocyte Absolute 0.33 K/mm3 (0.00-0.031); Immature Granulocyte Percent A 3.6 % (0-0.5); Lymphocytes Absolute Auto 2.55 K/mm3 (0.9-3.2); Lymphocytes Percent Auto 27.5 % (18.3-44.2); Mean Corpuscular HGB Conc 31.1 g/dl (32-36); Mean Corpuscular Hemoglobin 28.4 pg (26-34); Mean Corpuscular Volume 91.4 fl (80-100); Mean Platelet Volume 9.5 fl (7.4-10.4); Monocytes Absolute Auto 0.8 K/mm3 (0.1-0.6); Monocytes Percent Auto 8.2 % (2.6-8.5); Neutrophils Absolute Auto 5.1 K/mm3 (1.3-6.7); Neutrophils Percent Auto 55.4 % (45.5-73.1); Platelet Count Result 376 k/mm3 (150-375); Red Blood Count 3.59 M/mm3 (4.2-5.4); Red Cell Distribution Width 14.2 % (11.5-14.5); White Blood Count 9.3 K/mm3 (4.5-10.0)
[2021-05-16 06:35] LABS: Anion Gap 6 mmol/L (8-16); Blood Urea Nitrogen 12 mg/dL (7-17); Calcium 8.5 mg/dL (8.4-10.2); Carbon Dioxide 25 mmol/L (22-30); Chloride 103 mmol/L (98-107); Estimated CRCL calculation 34 ml/min; Estimated Glomerular Filt Rate 41; Glucose 119 mg/dL (65-110); Potassium 4.1 mmol/L (3.4-5.0); Sodium 134 mmol/L (137-145)
[2021-05-16 08:44] VITALS: BP 125/66; PULSE 79; RESP 18; TEMP 36.7; O2SAT 99
[2021-05-16] MEDS: DOCUSATE SODIUM 100 MG CAPSULE PO ×2 (08:48→17:50)
--- NOTE | 2021-05-16 10:27 | PM.IMPN ---
Progress Note: A&P Assessment and Plan (1) Retroperitoneal abscess: Code(s): K68.19 - Other retroperitoneal abscess Status: Acute Assessment and Plan: S/p drainage catheter insertion per IR on 05/13/21. Drain management as per Urology. Abscess Cultures growing moderate E. coli and heavy growth of Enterococcus bacteria. Continue Vancomycin #2 for Enterococcus coverage. Will change Zosyn to Imipenem for E coli coverage based on susceptibility reports to avoid nephrotoxicity with Vanc+Zosyn. Blood cultures no growth to date Continue monitoring. Appreciate Urology input. (2) Elevated serum creatinine: Code(s): R79.89 - Other specified abnormal findings of blood chemistry Status: Acute Assessment and Plan: Postop creatinine was reportedly 1.32. Creatinine remaining stable at 1.3 today. Continue to monitor BMP (3) Status post nephrectomy: Code(s): Z90.5 - Acquired absence of kidney Status: Acute Assessment and Plan: Status post left nephrectomy on 04/25/2021 following left ureteral injury. Managed per Urology (4) Hyponatremia: Code(s): E87.1 - Hypo-osmolality and hyponatremia Status: Acute Assessment and Plan: Patient has had poor appetite and decreased oral intake since her surgery. Sodium 129 on presentation and improved to 134 following adequate IV fluid rehydration IV fluids discontinued as she is tolerating p.o. intake, which has been encouraged (5) Diet-controlled diabetes mellitus: Code(s): E11.9 - Type 2 diabetes mellitus without complications Status: Acute Assessment and Plan: Last A1c was 6.1. Fasting glucose today was 119. No further management required (6) Essential (primary) hypertension: Code(s): I10 - Essential (primary) hypertension Status: Chronic Assessment and Plan: Blood pressures reviewed and have been stable. Last BP 125/66 Lisinopril is on hold. Monitor BP trends Subjective Date/time seen: 05/16/21 10:27 Interval history: Date of service: 05/16/2021 Letty Irene is a 66-year-old female with a history of sigmoid colon cancer, hypertension, hyperlipidemia, hypothyroidism, s/p left nephrectomy 04/25/2021 who is seen in follow-up for retroperitoneal abscess. She is feeling ?a lot better? today. She has no pain when she is at rest but when she gets up and moves around her left flank pain gets to about 3-5/10. She endorses abdominal soreness. Notes brownish-red output from her drain. Reports her appetite has improved and she has been eating most to her trays. Denies nausea or vomiting. No fevers, chills, sweats, dizziness, lightheadedness. Feels a bit wobbly when walking around but is no longer requiring a walker to get up and go to the bathroom. No urinary symptoms. Reports regular bowel movements, no diarrhea. No shortness breath, cough, chest pain. Review of Systems Review of Systems: All systems reviewed & are unremarkable except as noted in HPI and below Exam Narrative: General: Well-nourished, well-appearing, 66 year-old female, sitting up in bed, comfortable, NARD Neuro: awake, alert and oriented x4, speech clear, no focal neuro deficits noted HEENMT: normocephalic, atraumatic, EOMI, sclerae anicteric, moist oral mucosa Respiratory: clear to auscultation bilaterally, nonlabored breathing Cardio: regular rate, regular rhythm with S1-S2 Abdomen: nondistended, normoactive bowel sounds, soft, nontender to palpation : Drain from left flank with brown/red output, left flank is tender to palpation, no CVA tenderness Extremities: no edema, erythema, or tenderness to palpation, DP pulses 2+ bilaterally Skin: no rashes or lesions, warm and dry Psych: appropriate mood and affect, judgment and insight intact Objective Data Vital Signs Vital Signs: Vital Signs - 24 hr 05/15/21 14:00 05/15/21 20:00 05/16/21 08:44 T
[2021-05-16 14:16] VITALS: BP 130/58; PULSE 83; RESP 20; TEMP 36.7; O2SAT 98
--- NOTE | 2021-05-16 15:30 | WPDUROPN2 ---
Progress Note: A&P Assessment and Plan (1) Elevated serum creatinine: Code(s): R79.89 - Other specified abnormal findings of blood chemistry Status: Acute Assessment and Plan: Stable at 1.3 (2) Status post nephrectomy: Code(s): Z90.5 - Acquired absence of kidney Status: Acute Assessment and Plan: Incisions are well approximated, no drainage, edema or tenderness present. (3) Retroperitoneal abscess: Code(s): K68.19 - Other retroperitoneal abscess Status: Acute Assessment and Plan: WBC has returned to baseline on Zosyn and Vancomycin which are both culture sensitive to both E-Coli (Zosyn) and Enterococcus (Vancomycin). She states her pain has improved significantly and her drainage output is improved. Anaerobic cultures and blood cultures are still pending. The hospitalist service recommends switching her from Zosyn to Imipenem which was culture sensitive for E-Coli to avoid nephrotoxicity from Zosyn/Vancomycin. After discussion with Dr. Montes De Oca this morning, we will plan to send her home with 2 weeks of oral antibiotics, keep her drain in until we repeat her CT scan next week to ensure abscess fluid has resolved. If CT is normal, we will then set her up with IR to irrigate and remove her drain. Rosemary Matthew from hospitalist service and I discussed oral therapy options today, we have decided that Levaquin and Ampicillin are most appropriate to cover both Enterococcus and E-Coli. Once her cultures are final we can discharge, hopefully tomorrow. (4) Acute kidney injury: Code(s): N17.9 - Acute kidney failure, unspecified Status: Acute Assessment and Plan: Improved after drain placement, slowly. Baseline creatinine prior to nephrectomy was 0.80 in 01/2021. I don't expect it to resolve quickly d/t recent nephrectomy. Subjective Subjective Date/Time Seen: 05/16/21 15:30 The patient is doing much better today, her WBC is normal now at 9.3, creatinine is normal as well at 1.30. Aerobic culture grew heavy growth of Enterococcus and moderate growth of E-Coli. Enterococcus is sensitive to Vancomycin which she was started on over the weekend by the hospitalist service. E-Coli is sensitive to Zosyn that was started initially by the ER upon admission. Anaerobic and blood cultures are preliminarily showing no growth. Her drain is still outputting bloody, cloudy drainage and she remains afebrile. Review of Systems Respiratory: Respiratory: Reports no additional respiratory complaints Gastrointestinal: Gastrointestinal: Denies abdominal pain, Denies nausea and Denies vomiting Genitourinary: Genitourinary: Denies hematuria, Denies dysuria, Denies pelvic pain, Denies flank pain and Denies urinary hesitancy Exam Resp: Effort & Inspection: normal respiratory effort Cardio: Rate: regular rate GI: GI Palp: No abdominal tenderness (Incisions are well approximated, no drainage, edema or tenderness present.), Yes Soft to palpation, No Tenderness to palpation present (GI) and Yes Other GI palpation findings present (drain is draining to gravity, bloody, cloudy urine, dressing is dry/intact) : General: Yes no CVA tenderness Extrem: General: no edema Objective Data Vital Signs Vital Signs: Vital Signs - 24 hr 05/15/21 20:00 05/16/21 08:44 05/16/21 14:16 Temperature 97.3 F L 98.1 F 98.1 F Pulse Rate 84 79 83 Respiratory Rate 18 18 20 Blood Pressure 127/61 125/66 130/58 L Pulse Oximetry 99 99 98 Intake/Output Intake/Output: Intake & Output 05/13/21 05/14/21 05/15/21 05/16/21 23:59 23:59 23:59 23:59 Intake Total 1050 2320 1210 1150 Output Total 1910 3420 1740 Balance 1050 410 -2210 -590 Meds/Results Medications: Active Medications Generic Name Dose Route Start Last Admin Trade Name Freq PRN Reason Stop Dose Admin Hydrocodone Bitart/Acetaminophen 1 tab 05/14/21 05:00 05/16/21 00:11 Hydrocodone/Acetaminophen (*Crx) 5-325 Mg Tablet PO 1 ta
[2021-05-16 20:42] VITALS: RESP 20; O2SAT 98
[2021-05-16] MEDS: ATORVASTATIN 10 MG TABLET PO (20:50)
[2021-05-16] MEDS: PANTOPRAZOLE 40 MG TABLET PO (20:50)
[2021-05-16 21:48] VITALS: BP 121/62; PULSE 86; RESP 18; TEMP 36.2; O2SAT 98
[2021-05-17] MEDS: HYDROcodone/acetaminophen (*CRX) 5-325 MG TABLET 1 TAB PO (00:22)
[2021-05-17 05:35] VITALS: BP 120/66; PULSE 88; RESP 18; TEMP 36.1; O2SAT 98
[2021-05-17] MEDS: LEVOTHYROXINE SODIUM 75 MCG TABLET PO (05:39)
[2021-05-17 06:32] LABS: Hematocrit 32.5 % (37.0-47.0); Hemoglobin 10.4 g/dL (12.0-15.0); Mean Corpuscular Hemoglobin 28.7 pg (26-34); Mean Corpuscular Volume 89.8 fl (80-100); Mean Platelet Volume 9.3 fl (7.4-10.4); Platelet Count Result 379 k/mm3 (150-375); Red Blood Count 3.62 M/mm3 (4.2-5.4); Red Cell Distribution Width 14.2 % (11.5-14.5)
[2021-05-17 06:41] LABS: Anion Gap 1 mmol/L (8-16); Blood Urea Nitrogen 16 mg/dL (7-17); Calcium 8.5 mg/dL (8.4-10.2); Carbon Dioxide 31 mmol/L (22-30); Chloride 103 mmol/L (98-107); Estimated CRCL calculation 37 ml/min; Estimated Glomerular Filt Rate 45; Glucose 113 mg/dL (65-110); Potassium 4.5 mmol/L (3.4-5.0); Sodium 135 mmol/L (137-145)
--- NOTE | 2021-05-17 08:13 | PM.DS ---
DS: Discharge Diagnosis Discharge Diagnosis (1) Retroperitoneal abscess: Code(s): K68.19 - Other retroperitoneal abscess Status: Acute Assessment and Plan: S/p drainage catheter insertion per IR on 05/13/21. Drain management as per Urology. Abscess Cultures growing moderate E. coli and heavy growth of Enterococcus bacteria. Continue Vancomycin #2 for Enterococcus coverage. Will change Zosyn to Imipenem for E coli coverage based on susceptibility reports to avoid nephrotoxicity with Vanc+Zosyn. Blood cultures no growth to date Continue monitoring. Appreciate Urology input. (2) Elevated serum creatinine: Code(s): R79.89 - Other specified abnormal findings of blood chemistry Status: Acute Assessment and Plan: Postop creatinine was reportedly 1.32. Creatinine remaining stable at 1.3 today. Continue to monitor BMP (3) Status post nephrectomy: Code(s): Z90.5 - Acquired absence of kidney Status: Acute Assessment and Plan: Status post left nephrectomy on 04/25/2021 following left ureteral injury. Managed per Urology (4) Hyponatremia: Code(s): E87.1 - Hypo-osmolality and hyponatremia Status: Acute Assessment and Plan: Patient has had poor appetite and decreased oral intake since her surgery. Sodium 129 on presentation and improved to 134 following adequate IV fluid rehydration IV fluids discontinued as she is tolerating p.o. intake, which has been encouraged (5) Diet-controlled diabetes mellitus: Code(s): E11.9 - Type 2 diabetes mellitus without complications Status: Acute Assessment and Plan: Last A1c was 6.1. Fasting glucose today was 119. No further management required (6) Essential (primary) hypertension: Code(s): I10 - Essential (primary) hypertension Status: Chronic Assessment and Plan: Blood pressures reviewed and have been stable. Last BP 125/66 Lisinopril is on hold. Monitor BP trends (7) Acute kidney injury: Code(s): N17.9 - Acute kidney failure, unspecified Status: Acute Assessment and Plan: Improved after drain placement, slowly. Baseline creatinine prior to nephrectomy was 0.80 in 01/2021. I don't expect it to resolve quickly d/t recent nephrectomy. DS: Summary Time Spent with Patient Time attestation: Total time spent providing and/or coordinating discharge services: 90 minutes Exam Narrative: General: Well-nourished, well-appearing, 66 year-old female, sitting up in bed, comfortable, NARD Neuro: awake, alert and oriented x4, speech clear, no focal neuro deficits noted HEENMT: normocephalic, atraumatic, EOMI, sclerae anicteric, moist oral mucosa Respiratory: clear to auscultation bilaterally, nonlabored breathing Cardio: regular rate, regular rhythm with S1-S2 Abdomen: nondistended, normoactive bowel sounds, soft, nontender to palpation : Drain from left flank with brown/red output, left flank is tender to palpation, no CVA tenderness Extremities: no edema, erythema, or tenderness to palpation, DP pulses 2+ bilaterally Skin: no rashes or lesions, warm and dry Psych: appropriate mood and affect, judgment and insight intact Chest: Chest palpation & inspection: normal inspection of the chest Resp: Effort & Inspection: normal respiratory effort Cardio: Rate: regular rate GI: Inspection: normal to inspection and incision (well approximated, non tender, no edema or drainage) : General: Yes CVA tenderness (Left Flank Drain is draining purulent, bloody drainage, dressing is dry) on the left and Yes no CVA tenderness Back/Spine/Pelvis: Back: no CVA tenderness and CVA tenderness (Left Flank Drain is draining purulent, bloody drainage, dressing is dry) Extrem: General: no edema DS: Data Data Completed and Pending Labs on day of discharge: Labs from last 24 hours 05/17/21 05/17/21 06:18 06:18 WBC 11.0 H RBC 3.62
[2021-05-17] MEDS: DOCUSATE SODIUM 100 MG CAPSULE PO (08:20)
--- NOTE | 2021-05-17 12:15 | WPDUROPN2 ---
Progress Note: A&P Assessment and Plan (1) Elevated serum creatinine: Code(s): R79.89 - Other specified abnormal findings of blood chemistry Status: Acute Assessment and Plan: Improved, now 1.20. (2) Retroperitoneal abscess: Code(s): K68.19 - Other retroperitoneal abscess Status: Acute Assessment and Plan: Continue IV Imipenem and Vancomycin. Keep NPO for CT. D/t slight increase in WBC, will repeat CT to ensure abscess is resolving. If CT is improved, will plan to discharge home with antibiotics. IV versus oral is being determined s/p CT results, will be in discussion with hospitalist service per their antibiotic recommendations. (3) Status post nephrectomy: Code(s): Z90.5 - Acquired absence of kidney Status: Acute Assessment and Plan: Incisions are all well approximated, no edema, drainage or tenderness present. Subjective Subjective Date/Time Seen: 05/17/21 12:15 S/P Left Nephrectomy 04/25/2021 Dr. Montes De Oca S/P left flank drain 05/13/2021 IR The patient continues to improve, her WBC did increase slighlty to 11.0 from 9.3 yesterday, creatinine decreased slightly to 1.20. Aerobic culture grew heavy growth of Enterococcus and moderate growth of E-Coli. Enterococcus is sensitive to Vancomycin which she was started on over the weekend by the hospitalist service. E-Coli is sensitive to Zosyn that was started initially by the ER upon admission. Anaerobic and blood cultures are preliminarily showing no growth. Her drain is still outputting bloody, cloudy drainage and she remains afebrile. Review of Systems Cardiovascular: Cardiovascular: Denies chest pain Respiratory: Respiratory: Reports no additional respiratory complaints Gastrointestinal: Gastrointestinal: Denies abdominal pain, Denies nausea and Denies vomiting Genitourinary: Genitourinary: Denies hematuria, Denies dysuria, Denies pelvic pain, Denies flank pain, Denies urinary hesitancy and Denies urinary urgency Exam Resp: Effort & Inspection: normal respiratory effort Cardio: Rate: regular rate GI: Inspection: incision (all are well approximated, no edema or drainage present. non tender) and other (Abdominal drain is draining purulence/blood. Dressing dry/intact, non tende) GI Palp: Yes Soft to palpation and No Tenderness to palpation present (GI) : General: Yes no CVA tenderness Extrem: General: no edema Objective Data Vital Signs Vital Signs: Vital Signs - 24 hr 05/16/21 14:16 05/16/21 20:42 05/16/21 21:48 Temperature 98.1 F 97.2 F L Pulse Rate 83 86 Respiratory Rate 20 20 18 Blood Pressure 130/58 L 121/62 Pulse Oximetry 98 98 98 05/17/21 05:35 Temperature 96.9 F L Pulse Rate 88 Respiratory Rate 18 Blood Pressure 120/66 Pulse Oximetry 98 Intake/Output Intake/Output: Intake & Output 05/14/21 05/15/21 05/16/21 05/17/21 23:59 23:59 23:59 23:59 Intake Total 2320 1210 1740 420 Output Total 1910 3420 2845 420 Balance 410 -2210 -1105 0 Meds/Results Medications: Active Medications Generic Name Dose Route Start Last Admin Trade Name Freq PRN Reason Stop Dose Admin Hydrocodone Bitart/Acetaminophen 1 tab 05/14/21 05:00 05/17/21 00:22 Hydrocodone/Acetaminophen (*Crx) 5-325 Mg Tablet PO 1 tab Q4H PRN Administration Pain Rated 1-3 Hydrocodone Bitart/Acetaminophen 2 tab 05/14/21 05:00 Hydrocodone/Acetaminophen (*Crx) 5-325 Mg Tablet PO Q4H PRN Pain Rated 4-6 Atorvastatin Calcium 10 mg 05/13/21 22:45 05/16/21 20:50 Atorvastatin 10 Mg Tablet PO 10 mg HS ZAC Administration Dextrose 12.5 gm 05/13/21 22:37 Dextrose 50% 25 Gm/50 Ml Syringe IV PUSH PRN PRN Hypoglycemia Protocol Docusate Sodium 100 mg 05/13/21 17:00 05/17/21 08:20 Docusate Sodium 100 Mg Capsule PO 100 mg BID ZAC Administration Glucagon 1 mg 05/13/21 22:37 Glucagon For Inj 1 Mg Vial IM PRN PRN Hypoglycemia Protocol Gl
[2021-05-17 14:51] VITALS: BP 126/69; PULSE 85; RESP 18; TEMP 36.7; O2SAT 98
--- NOTE | 2021-05-17 16:05 | PM.DS ---
DS: Admitting Diagnosis Discharge Date 05/17/2021 Admitting Diagnosis Retroperitoneal Abscess DS: Discharge Diagnosis Discharge Diagnosis (1) Status post nephrectomy: Code(s): Z90.5 - Acquired absence of kidney Status: Acute (2) Hyponatremia: Code(s): E87.1 - Hypo-osmolality and hyponatremia Status: Acute (3) Elevated serum creatinine: Code(s): R79.89 - Other specified abnormal findings of blood chemistry Status: Acute (4) Diet-controlled diabetes mellitus: Code(s): E11.9 - Type 2 diabetes mellitus without complications Status: Acute (5) Retroperitoneal abscess: Code(s): K68.19 - Other retroperitoneal abscess Status: Acute DS: Summary Hospital Course Hospital Course: See below. Time Spent with Patient Time attestation: Total time spent providing and/or coordinating discharge services: 60 minutes. The patient had a left nephrectomy 04/25/[address] Montes De Oca. However she developed abdominal pain in the LLQ and left flank pain on 05/11/2021. Dr. Montes De Oca then saw her in the office the morning of 05/13/[address] and did a [address] CT revealing a large retroperitoneal abscess. She was then sent to [facility] by Dr. Montes De Oca to have a drain placed by interventional radiology, which was done later in the afternoon by Dr. James on 05/13/2021. She was then placed on Zosyn and admitted to the floor. Pending her abscess cultures and blood cultures she was noted to also have hyponatremia which improved over the course of her stay. Her pain and appetite improved throughout the weekend. Her abscess and blood cultures resulted. Blood cultures are negative to date. Her abscess cultures grew no anaerobic bacteria, however aerobic cultures grew Enterococcus and E-Coli. She then had Vancomycin added on with Zosyn, but d/t the possibility of nephrotoxicity, she was changed to a combination of culture sensitive Imipenem and Vancomycin, which she has been on for two days. She has had significant improvement in creatinine and WBC. A CT scan was then done today showing significant improvement of her abscess s/p drain placement. She will be discharged home today in agreement with the hospitalist service on 4 weeks of oral Ampicillin and Levaquin which were culture sensitive. She will continue a diabetic diet at home, activity should be limited, no heavy lifting or straining on Levaquin d/t the possibility of tendon rupture. She will resume all home medications. She will also be given probiotics to hopefully prevent c-Diff, pain medication and stool softeners. She will f/u next week for a CT scan, then drain removal in the office with Dr. Barlow or myself if CT continues to show improvement. She will have home health services in place for daily drain management/dressing changes. Exam Resp: Effort & Inspection: normal respiratory effort Cardio: Rate: regular rate GI: Inspection: incision (Well approximated, no edema, rendess or tenderness, no drainage) : General: Yes no CVA tenderness and Yes other (drain is intact, draining purulent/bloody drainage, dry dressing in place) Extrem: General: no edema DS: Data Data Completed and Pending Labs on day of discharge: Labs from last 24 hours 05/17/21 05/17/21 06:18 06:18 WBC 11.0 H RBC 3.62 L Hgb 10.4 L Hct 32.5 L MCV 89.8 MCH 28.7 MCHC 32.0 RDW 14.2 Plt Count 379 H MPV 9.3 Sodium 135 L Potassium 4.5 Chloride 103 Carbon Dioxide 31 H Anion Gap 1 L BUN 16 Creatinine 1.20 H Estim Creat Clear Calc 37 Estimated GFR 45 L Glucose 113 H Calcium 8.5 Preliminary micro results at discharge 05/13/21 16:07 Anaerobic Culture - Preliminary Abscess 05/13/21 14:18 Blood Culture - Preliminary Blood 05/13/21 14:20 Blood Culture - Preliminary Blood Discharge Plan Discharge Attending physician on discharge: Cooper Jiménez Consulting providers: Rosemary Matthew ; Karyna Deluna ; July Benítez
== END 2021-05-17 17:15 | disposition home health service (06) | DRG 372 ==
LOC: ANHED 17:26 → ANH3MED 17:55
PROVIDERS: Physician Assistant; Admitting Provider Urology; Emergency Provider Emergency Medicine; PCP Family Medicine; Visit Provider Nurse Practitioner Adult Health
DX: K68.19 Other retroperitoneal abscess (principal); E87.1 Hypo-osmolality and hyponatremia; B95.2 Enterococcus as the cause of diseases classified elsewhere; B96.20 Unspecified Escherichia coli [E. coli] as the cause of diseases classified elsewhere; Z20.822 Contact with and (suspected) exposure to COVID-19; Z90.5 Acquired absence of kidney; R79.89 Other specified abnormal findings of blood chemistry; F03.90 Unspecified dementia, unspecified severity, without behavioral disturbance, psychotic disturbance, mood disturbance, and anxiety; E11.9 Type 2 diabetes mellitus without complications; I10 Essential (primary) hypertension; K21.9 Gastro-esophageal reflux disease without esophagitis; E78.5 Hyperlipidemia, unspecified; E03.9 Hypothyroidism, unspecified; Z79.899 Other long term (current) drug therapy; Z87.891 Personal history of nicotine dependence; Z85.038 Personal history of other malignant neoplasm of large intestine
CPT/HCPCS: 36415; 74177; 75989; 80048; 80053; 81001; 83605; 83690; 83735; 85025; 85027; 85610; 85730; 86140; 87040; 87070; 87075; 87077; 87186; 87205; 96361; 96366; 96376; 97161; 99285; A9270; C1729; C1769; C9803; G0378; J0743; J2543; J3370; J7030; J7040; J7121; Q9967; U0003; U0005

== ENCOUNTER 2021-05-20 17:37 | Outpatient (NON) | payer MEDICARE, SELFPAY ==
[2021-05-20 19:04] LABS: Hemoglobin A1C 6.2 % (<5.7)
== END 2021-05-20 17:38 | disposition home or self-care (01) ==
PROVIDERS: PCP Family Medicine; Visit Provider Family Medicine
DX: E11.9 Type 2 diabetes mellitus without complications (principal)
CPT/HCPCS: 83036

== ENCOUNTER 2021-05-23 07:48 | Outpatient (CLI) | payer MEDICARE, SELFPAY ==
--- NOTE | ~2021-05-23 | CT_ITS ---
EXAMINATION: CT abdomen pelvis w con DATE: 05/23/2021 08:20 INDICATION: Retroperitoneal abscess. Status post nephrectomy. TECHNIQUE: Computed tomography (CT) of the abdomen and pelvis was performed with 100 cc Omnipaque 350 intravenous contrast. Automated exposure control and iterative reconstruction technique were employe d. Exam dose: 650.01 mGy-cm total exam DLP. COMPARISON: May 17, 2021 CT abdomen pelvis May 13, 2021 CT abdomen pelvis FINDINGS: The lung bases are clear. Normal heart size. No pericardial or pleural effusion. Small sliding hiatal hernia. Status post cholecystectomy. Status post cholecystectomy. The liver, spleen, pancreas, adrenal glands and right kidney are unremar kable. Status post left nephrectomy. There is percutaneous a pigtail catheter drainage catheter remaining in the left nephrectomy bed; sli ghtly below the catheter is a residual small encapsulated fluid collection measuring up to 8 x 29 mm dimension. There is some fat stranding in the nephrectomy bed There is a 1.5 x 3.3 cm high density fluid collection consistent with abscess along of the posterior lateral aspect of the descending colon in the left paracolic gutter near the same level and approxima tely 2.1 cm lateral to the percutaneous drainage catheter. There is a suture line at the rectosigmoid area. No bowel obstruction is noted. No free intraperitone al air is noted. Normal caliber of the abdominal aorta. No intraperitoneal or retroperitoneal or pelvic mass lesion or adenopathy or ascites. The uterus, adnexal areas and urinary bladder are unremarkable. Status post posterior and interbody lumbosacral surgical spinal fusion at L4-S1. There is severe degenerative disc disease and mild anterolisthesis at L2-3. IMPRESSION: Percutaneous pigtail drainage catheter remains in the left nephrectomy bed. Small residu al 8 x 29 mm encapsulated abscess is noted just below the drainage catheter 1.5 x 3.3 cm pericolic abscess along the posterolateral aspect of the descending colon 2.1 cm lateral to the percutaneous drainage catheter Reviewed, dictated and finalized at [facility]. Reviewed, dictated and finalized at location [facility]. DING ENERGY RETROFIT TECHNICIAN IMPRESSION: Percutaneous pigtail drainage catheter remains in the left nephrec arabella bed. Small residual 8 x 29 mm encapsulated abscess is noted just below the drainage catheter 1.5 x 3.3 cm pericolic abscess along the posterolateral aspect of the descendin g colon 2.1 cm lateral to the percutaneous drainage catheter
== END 2021-05-23 07:49 | disposition home or self-care (01) ==
LOC: ANHIMG 07:51
PROVIDERS: PCP Family Medicine; Visit Provider Nurse Practitioner
DX: Z90.5 Acquired absence of kidney (principal); Z98.890 Other specified postprocedural states; T81.43XA Infection following a procedure, organ and space surgical site, initial encounter
CPT/HCPCS: 74177; Q9967

== ENCOUNTER 2021-06-07 06:54 | Outpatient (CLI) | payer MEDICARE, SELFPAY ==
--- NOTE | ~2021-06-07 | CT_ITS ---
EXAMINATION: CT abdomen pelvis w con DATE: 06/07/2021 07:26 INDICATION: Left retroperitoneal abscess. TECHNIQUE: Computed tomography (CT) of the abdomen and pelvis was performed with 100 mL Omnipaque 350 intravenous contrast. Automated exposure control and iterative reconstruction technique were employe d. The dose-length product was 680.01 mGy-cm. COMPARISON: CT abdomen and pelvis 05/23/2021, 01/27/21 FINDINGS: The visualized portions of the lung bases are clear without pneumonia or pleural effusion. The heart size is normal. No pericardial effusion. There is a small sliding hiatal hernia. The liver is normal. There are changes of cholecystectomy. The spleen, pancreas, adrenal glands, and right kidn ey are normal. There are changes of left nephrectomy. There is a percutaneous drain in the post nephr ectomy space. There is no significant fluid in this area. There is trace pelvic ascites. There is an anastomosis in the rectosigmoid. There are no dilated loops of bowel. The appendix is normal. There a re no pathologically enlarged lymph nodes. Again seen are areas of old fat necrosis in left upper david drant. There are changes of anterior and posterior fusion procedures from L4 to S1. There is severe l umbar spondylosis. IMPRESSION: 1. Percutaneous drain in the left post nephrectomy space without residual fluid. The patient reports minimal drainage since Sunday. I removed the drain. 2. Small sliding hiatal hernia. Reviewed, dictated and finalized at location [facility]. S PRODUCT SPECIALIST IMPRESSION: 1. Percutaneous drain in the left post nephrectomy space without residual fluid . The patient reports minimal drainage since Sunday. I removed the drain. 2. Small sliding hiatal hernia.
== END 2021-06-07 06:55 | disposition home or self-care (01) ==
PROVIDERS: PCP Family Medicine; Visit Provider Urology
DX: N13.30 Unspecified hydronephrosis (principal); K44.9 Diaphragmatic hernia without obstruction or gangrene; Z97.8 Presence of other specified devices
CPT/HCPCS: 74177; Q9967

== ENCOUNTER → 2022-06-29 11:22 | Outpatient (CLI) | payer MEDICARE, SELFPAY ==
--- NOTE | ~2022-06-29 | XR_ITS ---
Left Knee Technique: AP, lateral, and sunrise views were obtained. Clinical History: Pain Findings: No fracture or dislocation is seen. Osseous alignment is anatomic. Minimal patellar spurrin g noted. Soft tissues are unremarkable. No joint effusion is seen. Impression: Minimal patellar spurring. Reviewed, dictated and finalized at location . Impression: Minimal patellar spurring.
== END ==
PROVIDERS: PCP Family Medicine; Visit Provider Physician Assistant
DX: M25.562 Pain in left knee (principal); S89.92XA Unspecified injury of left lower leg, initial encounter; M77.8 Other enthesopathies, not elsewhere classified
CPT/HCPCS: 73562

== ENCOUNTER 2022-11-02 08:08 | Outpatient (CLI) | payer MEDICARE, SELFPAY ==
[2022-11-02 13:00] LABS: Basophils Absolute Auto 0.1 K/mm3 (0.0-0.1); Basophils Percent Auto 0.6 % (0.2-1.2); Eosinophils Absolute Auto 0.4 K/mm3 (0-0.3); Eosinophils Percent Auto 4.6 % (0-4.4); Hemoglobin 12.9 g/dL (12.0-15.0); Immature Granulocyte Absolute 0.03 K/mm3 (0.00-0.031); Immature Granulocyte Percent A 0.4 % (0-0.5); Lymphocytes Absolute Auto 2.09 K/mm3 (0.9-3.2); Lymphocytes Percent Auto 25.8 % (18.3-44.2); Mean Corpuscular HGB Conc 32.3 g/dl (32-36); Mean Corpuscular Hemoglobin 30.5 pg (26-34); Mean Corpuscular Volume 94.6 fl (80-100); Mean Platelet Volume 11.1 fl (7.4-10.4); Monocytes Absolute Auto 0.6 K/mm3 (0.1-0.6); Monocytes Percent Auto 7.5 % (2.6-8.5); Neutrophils Percent Auto 61.1 % (45.5-73.1); Platelet Count Result 217 k/mm3 (150-375); Red Blood Count 4.23 M/mm3 (4.2-5.4); Red Cell Distribution Width 12.6 % (11.5-14.5); White Blood Count 8.1 K/mm3 (4.5-10.0)
[2022-11-02 13:16] LABS: Alanine Aminotransferase 31 U/L (6-35); Alkaline Phosphatase 93 U/L (38-126); Anion Gap 7 mmol/L (8-16); Aspartate Amino Transferase 32 U/L (14-36); Bilirubin,Total 0.4 mg/dL (0.2-1.3); Blood Urea Nitrogen 20 mg/dL (7-17); Carbon Dioxide 28 mmol/L (22-30); Chloride 106 mmol/L (98-107); Cholesterol 165 mg/dL (0-200); Estimated Glomerular Filt Rate 45; Glucose 98 mg/dL (65-110); HDL Direct 52 mg/dL; Potassium 4.4 mmol/L (3.4-5.0); Sodium 141 mmol/L (137-145); Triglycerides 180 mg/dL (<150)
[2022-11-02 13:27] LABS: LDL Cholesterol Direct 61 mg/dL
[2022-11-02 15:23] LABS: Hemoglobin A1C 5.8 % (<5.7)
== END 2022-11-02 08:09 | disposition home or self-care (01) ==
LOC: ANHGOSHLAB 08:10
PROVIDERS: PCP Family Medicine; Visit Provider Physician Assistant
DX: E03.9 Hypothyroidism, unspecified (principal); E11.9 Type 2 diabetes mellitus without complications; I10 Essential (primary) hypertension; Z68.35 Body mass index [BMI] 35.0-35.9, adult
CPT/HCPCS: 36415; 80053; 80061; 83036; 84443; 85025

== ENCOUNTER 2023-06-01 08:51 | Outpatient (CLI) | payer MEDICARE, SELFPAY ==
[2023-06-01 21:22] LABS: Hepatitis C Virus Antibody Negative (Negative)
== END 2023-06-01 08:52 | disposition home or self-care (01) ==
LOC: ANHGOSHLAB 08:53
PROVIDERS: PCP Family Medicine; Visit Provider Nurse Practitioner Family
DX: Z11.59 Encounter for screening for other viral diseases (principal)
CPT/HCPCS: 36415; 86803

== ENCOUNTER 2023-10-01 08:14 | Outpatient (CLI) | payer MEDICARE, SELFPAY ==
[2023-10-01 12:36] LABS: Alanine Aminotransferase 28 U/L (6-35); Albumin Level 4.3 g/dL (3.5-5.1); Alkaline Phosphatase 120 U/L (38-126); Anion Gap 5 mmol/L (4-12); Aspartate Amino Transferase 46 U/L (14-36); Bilirubin,Total 0.7 mg/dL (0.2-1.3); Blood Urea Nitrogen 20 mg/dL (7-17); Calcium 9.1 mg/dL (8.4-10.2); Carbon Dioxide 28 mmol/L (22-30); Chloride 106 mmol/L (98-107); Cholesterol 156 mg/dL (0-200); Estimated Glomerular Filt Rate 44; Glucose 122 mg/dL (65-110); HDL Direct 51 mg/dL; Potassium 4.4 mmol/L (3.4-5.0); Sodium 139 mmol/L (137-145); Triglycerides 147 mg/dL (<150)
[2023-10-01 12:47] LABS: LDL Cholesterol Direct 74 mg/dL
[2023-10-01 13:48] LABS: Thyroid Stimulating Hormone Reflex 0.121 uIU/mL (0.465-4.68)
[2023-10-01 18:52] LABS: Free T4 Free Thyroxine Reflex 1.28 ng/dL (0.78-2.19)
[2023-10-01 19:14] LABS: Hemoglobin A1C 5.9 % (<5.7)
[2023-10-01 19:40] LABS: Total Triiodothyronine (T3) 1.34 NG/ML (0.97-1.69)
== END 2023-10-01 08:15 | disposition home or self-care (01) ==
PROVIDERS: PCP Family Medicine; Visit Provider Family Medicine
DX: E03.9 Hypothyroidism, unspecified (principal); E78.5 Hyperlipidemia, unspecified; N17.9 Acute kidney failure, unspecified; R34 Anuria and oliguria; Z68.35 Body mass index [BMI] 35.0-35.9, adult; E11.9 Type 2 diabetes mellitus without complications
CPT/HCPCS: 36415; 80053; 80061; 83036; 84439; 84443; 84480

== ENCOUNTER 2023-10-04 16:18 | Outpatient (CLI) | payer MEDICARE, SELFPAY ==
--- NOTE | ~2023-10-04 | MM_ITS ---
EXAMINATION: MM screening jocelyn BI w haylie HISTORY: Screening mammogram TECHNIQUE: Craniocaudal and mediolateral oblique 3-D tomosynthesis images were obtained and synthetic 2-D images were generated. CAD analysis was submitted and interpreted. COMPARISON: 07/29/2015, 07/29/2013 BREAST PARENCHYMAL COMPOSITION:Not Dense. The breasts are almost entirely fatty FINDINGS: No suspicious mass, calcification, or architectural distortion are identified in either abraham ast to suggest malignancy. There has been no suspicious interval change. IMPRESSION: No mammographic evidence of malignancy. Recommend routine screening mammography in one year. BI-RADS Category 1: Negative Reviewed, dictated and finalized at location .
== END 2023-10-04 16:19 | disposition home or self-care (01) ==
LOC: ANHIMG 16:20
PROVIDERS: PCP Family Medicine; Visit Provider Family Medicine
DX: Z12.31 Encounter for screening mammogram for malignant neoplasm of breast (principal)
CPT/HCPCS: 77063; 77067

== ENCOUNTER 2023-12-13 08:56 | Outpatient (CLI) | payer MEDICARE, SELFPAY ==
[2023-12-13 14:32] LABS: Alanine Aminotransferase 37 U/L (6-35); Albumin Level 4.4 g/dL (3.5-5.1); Alkaline Phosphatase 113 U/L (38-126); Anion Gap 10 mmol/L (4-12); Aspartate Amino Transferase 42 U/L (14-36); Bilirubin,Total 0.4 mg/dL (0.2-1.3); Blood Urea Nitrogen 22 mg/dL (7-17); Calcium 9.2 mg/dL (8.4-10.2); Carbon Dioxide 27 mmol/L (22-30); Chloride 102 mmol/L (98-107); Estimated Glomerular Filt Rate 40; Glucose 110 mg/dL (65-110); Potassium 4.5 mmol/L (3.4-5.0); Sodium 139 mmol/L (137-145)
[2023-12-13 15:46] LABS: Hemoglobin A1C 6.2 % (<5.7)
[2023-12-13 17:47] LABS: Free T4 Free Thyroxine Reflex 1.36 ng/dL (0.78-2.19)
[2023-12-13 18:39] LABS: Total Triiodothyronine (T3) 1.42 NG/ML (0.97-1.69)
== END 2023-12-13 08:57 | disposition home or self-care (01) ==
LOC: ANHGOSHLAB 08:58
PROVIDERS: PCP Family Medicine; Visit Provider Family Medicine
DX: E03.9 Hypothyroidism, unspecified (principal); E78.5 Hyperlipidemia, unspecified; E11.9 Type 2 diabetes mellitus without complications; N17.9 Acute kidney failure, unspecified; R34 Anuria and oliguria
CPT/HCPCS: 36415; 80053; 83036; 84439; 84443; 84480

== ENCOUNTER 2024-12-10 07:55 | Outpatient (CLI) | payer MEDICARE, SELFPAY ==
--- OUTSIDE RECORDS SUMMARY | 2011-08-30 07:16 | XMS_ITS | Continuity of Care Document ---
Author Organization [facility] Address [address] [place] [address] Phone Care Team Providers Care Occupational Therapy Aides Teacher Name Role Phone Unavailable Unavailable Unavailable Medications Medication Instructions Dosage Effective Dates (start - stop) Status Comments Percocet 5 mg-325 mg Tab take 1 - 2 Tablet by Oral route for 8 hours 1-2 Tablet - No Longer Active Procedures Procedure Date Office/outpatient visit,est, mod 2010 X-ray exam lower spine 2-3 views 2010 X-ray exam of hip, complete RX Generated And Transmitted Via [employer] Office/outpatient visit,est, mod 2009 X-ray exam lower spine 2-3 views 2009 Medical Record Copy Medical Record Copy Per Page Special Narrative Report Office/outpatient visit,est, mod 2009 Postop followup visit X-ray exam lower spine 2-3 views 2009 Medical Record Copy Medical Record Copy Per Page Postop followup visit X-ray exam lower spine 2-3 views 2009 Postop followup visit X-ray exam lower spine 2-3 views 2009 Lumbar spine fus, pstr intrbdy sngl Lumb spine fus, pstr intrbdy ea add Lumbar spine fusion, posterolateral Spine fusion, each addlvertebra 2009 Insert spine seg fix, post, 3-6 seg Apply spinal prosthetic device 10 Autograft, spine surg, morselized Aspiration, bone marrow Lumbar spine fus, pstr intrbdy sngl Lumb spine fus, pstr intrbdy ea add Lumbar spine fusion, posterolateral Spine fusion, each add'lvertebra 2009 Insert spine seg fix, post, 3-6 seg Apply spinal prosthetic device 10 Autograft, spine surg, morselized Aspiration, bone marrow Office/outpatient visit,est, mod 2009 Office/outpatient visit,est, mod 2009 Inject foramin, lumb/sacral, single Fluoro For Spine Injections Office/outpatient visit,est, mod 2009 Inject, spine, lumbar/sacral Fluoro For Spine Injections Office/outpatient visit,est, mod 2008 Inject, spine, lumbar/sacral Fluoro For Spine Injections Office/outpatient visit,est, mod 2007 Office/outpatient visit,new, mod 2007 X-ray exam lower spine 2-3 views 2007 Advance Directives Directive Yes / No Effective Date File Name No Information Encounters Encounter Description Practice Location Reason(s) For Visit Diagnoses Date Provider Providers Copied on Encounter [facility], [address] [address], [place], [place], [id number], tel:[phone] [facility] No Information No Information Office/outpa [place]ient visit[place]est, [facility], [address] [address], [place], [place], [id number], [place] tel:[phone] [facility] LUMBAGOJOINT PAIN-PELVIS Dec- 1 Keanu Robertson. [address] [facility], [address] [address], [place], [place], [id number], [place]. tel:[phone] Referring Provider: Ailyn Karimi, [address] [place] [address] Suite [facility], [place], [address] . 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 [address] [address], [place], [place], [id number], [place]. tel:[phone] [facility], [address], [id number], [place] tel:[phone] [facility] No Information 0 Casandra Campos. [address] [facility], [address] [address], [place], [place], [address], [place]. tel:[phone] [facility], [address], [id number], [place] tel:[phone] [facility] No Information 0 Casandra Campos. [address] [facility], [address] [address], [place], [place], [id number], [place]. tel:[phone] Office/outpa tient visit,est, mod [facility], [address] [address], [place], [place], [id number], [place] tel:[phone] [facility] Outpatient No Information 0-201 0 Casandra Campos. [address] [facility], [address] [address], [place], [place], [id number], [place]. tel:[phone] [facility], [address] [facility] [address], [place], [place], [id number], [place] tel:[phone] [facility] No Information 2-201 0 Abeln Ailyn. [address] [facility], [facility] [address], [place], [place], [id number], [place]. tel:[phone] [facility], [address] [address], [place], [place], [address], [place] tel:[phone] [facility] No Information 9-201 0 Administrati ve Provider. [address] [address], [place], [place], [address], [place]. tel:[phone] [facility], [address] [address], [place], [place], [id number], [place] tel:[phone] [facility] No Information 0-201 0 Casandra Campos. [address] [facility], [address] [address], [place], [place], [address], [place]. tel:[phone] [facility], [address] [address], [place], [place], [address], [place] tel:[phone] [facility] No Information 3-201 0 Casandra Campos. [address] [facility], [address] [address], [place], [place], [address], [place]. tel:[phone] [facility], [address] [address], [place], [place], [address], [place] tel:[phone] [place] [address] No Information 6-201 0 Casandra Campos. [address] [facility], [address] [address], [place], [place], [address], [place]. tel:[phone] [facility], [address] [address], [place], [place], [address], [place] tel:[phone] [place] [address] No Information 2 6-201 0 Casandra Campos. [address] [facility], [address], [place], [place], [address], [place]. tel:[phone] Office/outpa tient visit,est, [facility], [address] [address], [place], [place], [address], [place] tel:[phone] [facility] No Information 0 Casandra Campos. [address] [facility], [facility] [address], [place], [place], [address], [place]. tel:[phone] Office/outpa tient visit,est, [facility], [address] [address], [place], [place], [id number], [place] tel:[phone] [facility] Outpatient No Information 0 Casandra Campos. [address] [facility], [address] [address], [place], [place], [address], [place]. tel:[phone] [facility], [address] [address], [place], [place], [address], [place] tel:[phone] [facility] No Information 0 Casandra Campos. [address] [facility], [address] [address], [place], [place], [id number], [place]. tel:[phone] Office/outpa tient visit,est, [facility], [address] [address], [place], [place], [address], [place] tel:[phone] [facility] Out[facility] No Information 0 Casandra Campos. [address] [facility], [address] [address], [place], [place], [id number], [place]. tel:[phone] [facility], [address] [address], [place], [place], [address], [place] tel:[phone] [facility] No Information 9 Casandra Campos. [address] [facility], [address] [address], [place], [place], [address], [place]. tel:[phone] Office/outpa tient visit,est, [facility], [address], [id number], [place] tel:[phone] [facility] Out[facility] No Information 9 Casandra Campos. [address] [address], [place], [place], [address], [place]. tel:[phone] [facility], [address], [id number], [place] tel:[phone] [facility] No Information 8 Casandra Campos. [address], [id number], [place]. tel:[phone] Office/outpa tient visit,[facility], [facility], [address], [id number], [place] tel:[phone] [facility] Out[facility] No Information 8 Casandra Campos. [address] [address], [place], [place], [address], [place]. tel:[phone] Office/outpa tient visit,[facility], [address], [id number], [place] tel:[phone] [facility] No Information 8 Casandra Campos. [address], [id number], [place]. tel:[phone] Family History Family Member Type Diagnosis Age At Onset No Information Payers Payer name Insurance type Covered libertarian ID Authoriza tion(s) No Information Social History Type Description Quantity Date Captured Comments Sex Female Smoking Status No Information Chief Complaint And Reason For Visit No Information Reason For Referral Reason For Referral No Information History Of Present Illness Encounter Date Complaint History Of Prese nt Illness No Information Functional Status Date Functional Assessmen t No Information Instructions Date Instruction Additional Infor mation No Information Assessments Type Assessment Date No Information Patient Care Teams Name Effective Dates (start - stop) Status Members No Information
--- OUTSIDE RECORDS SUMMARY | 2024-01-09 03:00 | XMS_ITS | Continuity of Care Document ---
Author Organization [facility] Address [address] 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 Name Role Phone Breanna De Luna OD Unavailable Unavailable Allergies, Adverse Reactions, Alerts Substance Reaction Status Criticality metronidazole Active No Information Medications Medication Instructions Dosage Effective Dates (start - stop) Status Comments metformin 500 mg tablet take 1 tablet by oral route 2 times every day with morning and evening meals 500 MG - Active Cymbalta 20 mg capsule,delayed release take 1 capsule by oral route every day 20 MG - Active atorvastatin 10 mg tablet take 1 tablet by oral route every day 10 MG - Active famotidine 40 mg tablet take 1 tablet by oral route every day at bedtime 40 MG - Active levothyroxine 75 mcg capsule take 1 capsule by oral route every day 75 MCG - Active lisinopril 10 mg tablet take 1 tablet by oral route every day 10 MG - Active Tylenol Extra Strength 500 mg tablet take 2 tablet by oral route every 6 hours as needed 1000 MG - Active Vitamin C 500 mg tablet take 1 by oral route every day 1 - Active Procedures Procedure Date No Charge Optomap Fundus Photos 024 Eye Exam & Treatment Fundus Photography W/ Report Eye Exam & Treatment Yousuf Eye Mask Refraction No Charge Optomap Fundus Photos Post-op Follow-up Visit No Charge Refraction Post-op Follow-up Visit Post-op Follow-up Visit Remove Cataract, Insert Lens IOLMaster-Professional No Charge Refraction Post-op Follow-up Visit Post-op Follow-up Visit Remove Cataract, Insert Lens IOLMaster-Professional Jan- Corneal Topography No Charge GDX Retina No Charge AScan IOLMaster-Technical No Charge Optomap Fundus Photos 022 No Charge Refraction Office/outpatient Visit, New Advance Directives Directive Yes / No Effective Date File Name No Information Encounters Encounter Description Practice Location Reason(s) For Visit Diagnoses Date Provider Providers [facility] on [facility], [id number], [place], [place], [id number], tel:[phone] SEC [place] Professional diabetic eye exam (chief complaint) Type 2 diabetes mellitus without complications Vitreous degeneration, right eyePresence of intraocular lensOther secondary cataract, right eye Oct-0 4 Calixto OD Breanna. [facility] [employer], [address], [place], [place], [address], [place]. tel:[phone] Referring Provider: Eder Otero, [address], [place], [address] . tel:[phone] [facility], [id number], [place], [place], [address], tel:[phone] SEC [place] Complete Exam (chief complaint) Vitreous degeneration, right eyePresence of intraocular lensDry eye syndrome of right lacrimal glandType 2 diabetes mellitus without complications 3 Calixto OD Breanna. [facility] [employer], [address], [place], [place], [address], . tel:[phone] Referring Provider: Eder Otero, [address], [place], [address] . tel:[phone] [facility], [facility] [address], [place], [place], [address], tel:[phone] SEC [place] Refraction (chief complaint) Presence of intraocular lens 3 Calixto OD Breanna. [facility] [employer], [address], [place], [place], [address], . tel:[phone] Referring Provider: Eder Otero, [address], [place], [address] . tel:[phone] [facility], [facility] [address], [place], [place], [address], tel:[phone] SEC [place] 4 week f/u (chief complaint) Post op visit 2 Tila Gaines. [facility] [employer], [address], [place], [place], [address], . tel:[phone] Referring Provider: Eder Otero, [address], [place], [address] . tel:[phone] [facility], [facility] [address], [place], [place], [address], tel:[phone] SEC [place] 2 wk PC IOL po (chief complaint) Post op visit 2 Tila Gaines. [facility] [employer], [address], [place], [place], [address], . tel:[phone] Referring Provider: Eder Otero, [address], [place], [address] . tel:[phone] [facility], [facility] [address] [address], [place], [place], [address], tel:[phone] SEC Escobar [place] 1 day postop (chief complaint) Post op visit 2 Calixto OD Breanna. [facility] [place] [address], [address], [place], [place], [address], . tel:[phone] Referring Provider: Eder Otero, [facility] [address], [place], [address] . tel:[phone] [facility], [address] [place], [place] [address], [place], [place], [address], tel:[phone] [place] [address] No Information 2 Tila Gaines. [facility] [place], [address], [place], [place], [address], . tel:[phone] Referring Provider: Eder Otero, [facility] [employer] [address], [place], [address] . tel:[phone] [facility], [facility] [place] [address], [place], [place], [address], tel:[phone] SEC [place] No Information 2 Tila Gaines. [facility] [place], [address], [place], [place], [address], . tel:[phone] Referring Provider: Eder Otero, [facility] [employer] [address], [place], [address] . tel:[phone] [facility], [address] [place], [place] [address], [place], [place], [address], tel:[phone] SEC Fellows N oJebergh 2 wk CE PO (01/26/22) (chief complaint) Post op visit 2 Calixto OD Breanna. [facility] [place], [address], [place], [place], [address], . tel:[phone] Referring Provider: Eder Otero, [facility] [place] [address], [place], [address] . tel:[phone] [facility], [address], [place], [place], [address], [place] tel:[phone] SEC Fellows N Jamieh 1 day PC IOL po (chief complaint) Post op visit Oct-2 2 Calixto OD Breanna. [facility] [employer], [address], [place], [place], [address], . tel:[phone] Referring Provider: Eder Otero, [facility] [employer] [address], [place], [address] . tel:[phone] [facility], [facility] [address], [place], [place], [address], tel:[phone] [facility] No Information Oct-2 2 Tila Gaines. [facility] [employer], [address], [place], [place], [address], [place]. tel:[phone] Referring Provider: Eder Otero, [facility] [employer] [address], [place], [address] . tel:[phone] [facility] [employer] [facility] CompanyI[facility] Center[facility], [facility] [address], [place], [place], [address], [place] tel:[phone] [place] No Information Oct- 2 Tila Gaines. [facility] [employer], [address], [place], [place], [address], [place]. tel:[phone] Referring Provider: Eder Otero, [facility] [employer] [address], [place], [address] . tel:[phone] Office[facility]outpa tient Visit, [facility], [facility] [address], [place], [place], [address], [place] tel:[phone] SEC Escobar N Lindbergh Complete Exam (chief complaint) Combined forms of age-related cataract, bilateral Sep-0 - 2 Tila Gaines. [facility] [employer], [address], [place], [place], [address], . tel:[phone] Referring Provider: Eder Otero, [address] [facility] [address], [place], [address] . tel:[phone] [facility], [address] [facility] [address], [place], [place], [address], tel:[phone] SEC Escobar Hanson No Information 2 Tila Gaines. [address] [place] [employer] [facility], [address], [place], [place], [address], [place]. tel:[phone] Family History Family Member Type Diagnosis Age At Onset No Information Payers Payer name Insurance type Covered libertarian ID Noble rondon(s) AARP Medicare Complete [place] [id number] Social History Type Description Quantity Date Captured Comments Alcohol Use Details No Caffeine Use Details Tobacco Use Status Current non-smoker Smoking Status Never smoker Non-Smoking Tobacco Use Details : No Details Available : No Details Available Sex Female Chief Complaint And Reason For Visit From encounter dated 01/09/2024 08:00'. diabetic eye exam (chief complaint). Description: The 68 year old patient presents for a complete Type II diabetic exam ou. Patient is pseudo ou with hx of Vitrectomy OS. Patient does not check BS. Patient denies any changes in vision. Patient states she doesn't like the look of her currentglasses. Reason For Referral Reason For Referral No Information Plan Of Treatment Date Type Action Status Patient Education Learning About YAG Lase r Capsulotomy completed Patient Education Dry Eyes: Care Instruct ions completed Patient Education Cataract Surgery: What to Expect at Home completed History Of Present Illness Encounter Date Complaint History Of Prese nt Illness diabetic eye exam The 68 year ol d patient presents for a complete Type II diabetic exam ou. Patient is pseudo ou with hx of Vitrectomy OS. Patient does not check BS. Patient denies any changes in vision. Patient states she doesn't like the look of her current glasses. Complete Exam The 67 year old patient presents for a complete Type II diabetic exam ou. Patient is pseudo ou with Vitrectomy OS. Patient takes no medication for DM. Patient states it is harder to read and to see the computer. Patient thinks it is the right eye. Patient got new glasses in April. Refraction The 66 year old patient presents for evaluation of Refraction in the right eye and left eye. Pt is wearing very old gls and needs a new Rx. 4 week f/u The 66 year old patient presents for evaluation of 4 week f/u in the left eye, possible suture removal s/p PCIOL w/AV OS (02/23/22). Patient denies any changes and VA seems good. Patient done with p/o gtts. 2 wk PC IOL po The 66 year old patient presents for evaluation of 2 wk PC IOL po in the left eye. Pt using Pred bid and Ketorolac tid. Pt states OS vision is good but she would like a Gls Rx. 1 day postop The 66 year old patient presents for evaluation of 1 day postop in the left eye. Pt. had PC/IOL OS 02/23/2022. Reviewed postop instructions with patient. Pt. to start using Poly qid, Ketorolac tid, and PF1% qid. Pt. states OS is scratchy from stich overnight. 2 wk CE PO (01/26/22) The 66 yea r old patient presents for evaluation of 2 wk CE PO (01/26/22) in the right eye. Pt reports she is using Pred QID OD and Ketorolac TID OD. Pt reports OD is doing great and she can see so much better since CE. Pt reports she would like to proceed with CE, OS, because she has trouble reading street signs while driving, has trouble driving at night and is bothered by glare from lights at night, x 2 yrs. 1 day PC IOL po The 66 year old patient presents for evaluation of 1 day PC IOL po in the right eye. All medications reviewed and PO instructions understood. Pt using Poly qid, PF1% qid, and Ketorolac tid. Pt denies pain or discomfort. Pt states vision has improved today. Complete Exam The 66 year old patient presents for evaluation of Complete Exam in the right eye and left eye. Pt. was seen at [facility] over 2 years ago and told she had Cataracts. Pt. had planned on coming in but then was diagnosed with colon CA and had a complication where they eventually had to remove her kidney. Pt. finally is healthy enough to come in to have Cataracts looked at. Pt. has been c/o of blurred vision OS > OD over the past 2 year. Pt. has trouble reading small print even with her glasses on. Pt. has trouble driving at night due to glare from headlights. Pt. has trouble seeing road signs. Functional Status Date Functional Assessmen t No Information Instructions Date Instruction Additional Infor katy Impression/Plan Impression/Plan Impression/Plan Impression/Plan Impression/Plan Impression/Plan Impression/Plan Impression/Plan Impression/Plan Assessments Type Assessment Date assessment Type 2 diabetes mellitus without complications assessment Vitreous degeneration, right eye assessment Presence of intraocular lens Jan assessment Other secondary cataract, right eye Patient Care Teams Name Effective Dates (start - stop) Status Members No Information
--- NOTE | ~2024-12-10 | MM_ITS ---
EXAMINATION: MM screening jocelyn BI w haylie HISTORY: Screening TECHNIQUE: Craniocaudal and mediolateral oblique 3-D tomosynthesis images were obtained and synthetic 2-D images were generated. CAD analysis was submitted and interpreted. COMPARISON: 10/04/2023 BREAST PARENCHYMAL COMPOSITION: Not Dense: The breasts are almost entirely fatty. FINDINGS: There is no evidence of suspicious mass, calcification, or architectural distortion to suggest malignancy. There has been no suspicious interval change. IMPRESSION: 1. No mammographic evidence of malignancy. Recommend routine screening mammography in one year. BI-RADS Category 2: Benign finding(s) Reviewed, dictated and finalized at location Q. IMPRESSION: 1. No mammographic evidence of malignancy. Recommend routine screening mammogra phy in one year. BI-RADS Category 2: Benign finding(s)
== END 2024-12-10 07:56 | disposition home or self-care (01) ==
LOC: ANHFOHIMG 07:57
PROVIDERS: PCP Family Medicine; Visit Provider Family Medicine
DX: Z12.31 Encounter for screening mammogram for malignant neoplasm of breast (principal)
CPT/HCPCS: 77063; 77067

== ENCOUNTER 2025-01-14 13:42 | Outpatient (CLI) | payer MEDICARE, SELFPAY ==
[2025-01-14 19:18] LABS: Hemoglobin A1C 6.1 % (<5.7)
[2025-01-14 19:22] LABS: Alanine Aminotransferase 25 U/L (6-35); Albumin Level 4.1 g/dL (3.5-5.1); Alkaline Phosphatase 135 U/L (38-126); Anion Gap 7 mmol/L (4-12); Aspartate Amino Transferase 26 U/L (14-36); Bilirubin,Total 0.4 mg/dL (0.2-1.3); Blood Urea Nitrogen 17 mg/dL (7-17); Calcium 9.1 mg/dL (8.4-10.2); Carbon Dioxide 27 mmol/L (22-30); Chloride 102 mmol/L (98-107); Estimated Glomerular Filt Rate 43; Glucose 89 mg/dL (65-110); Potassium 4.5 mmol/L (3.4-5.0); Sodium 136 mmol/L (137-145); Total Protein 7.2 g/dL (6.3-8.2)
[2025-01-14 19:59] LABS: Thyroid Stimulating Hormone 0.328 uIU/mL (0.465-4.680)
== END 2025-01-14 13:43 | disposition home or self-care (01) ==
LOC: ANHGOSHLAB 13:43
PROVIDERS: PCP Family Medicine; Visit Provider Family Medicine
DX: E03.9 Hypothyroidism, unspecified (principal); E11.9 Type 2 diabetes mellitus without complications
CPT/HCPCS: 36415; 80053; 83036; 84443